=== PATIENT | male | born 1965 | race Caucasian/White ===

== ENCOUNTER 2024-01-28 15:15 | Outpatient (CLI) | payer OTHER | END 2024-01-28 15:30 | disposition home or self-care (01) | LOC: LAB.N 15:15 | PROVIDERS: ATTEND Physician Assistant Medical | DX: L03.115 Cellulitis of right lower limb (principal) | CPT/HCPCS: 87070; 87205 ==

== ENCOUNTER 2024-02-02 09:14 | Inpatient (IN) | payer OTHER ==
[~2024-02-02 09:14] MED LIST: PIPERACILLIN/TAZOBACTAM 4.5 GM in SODIUM CHLORIDE 0.9% MINIBAG 100 ML IV SCH
[2024-02-02 11:46] LABS: BASOPHILS # (AUTO) 0.1 10^3/uL (0.0-0.1); BASOPHILS % (AUTO) 0.6 %; EOSINOPHILS # (AUTO) 0.1 10^3/uL (0.0-0.7); EOSINOPHILS % (AUTO) 0.6 %; HCT - HEMATOCRIT 39.4 % (42.0-52.0); HGB - HEMOGLOBIN 13.4 g/dL (14.0-18.0); LYMPHOCYTES % (AUTO) 14.6 %; MEAN CORPUSCULAR HEMOGLOBIN 32.4 pg (27.0-31.0); MEAN CORPUSCULAR VOLUME 95.2 fL (80.0-94.0); MEAN PLATELET VOLUME 8.8 fL (7.4-11.4); MONOCYTES # (AUTO) 1.6 10^3/uL (0.0-1.0); MONOCYTES % (AUTO) 11.2 %; NEUTROPHILS # (AUTO) 10.1 10^3/uL (1.5-6.6); NEUTROPHILS % (AUTO) 72.3 %; PLT - PLATELET COUNT 199 10^3/uL (130-450); RED BLOOD COUNT 4.14 10^6/uL (4.70-6.10); RED CELL DISTRIBUTION WIDTH 11.9 % (12.0-15.0)
[2024-02-02 11:50] LABS: SLIDE REVIEW? Indicated
[2024-02-02 12:01] LABS: ALBUMIN 3.2 g/dL (3.2-5.5); ALBUMIN/GLOBULIN RATIO 0.9 (1.0-2.2); BILIRUBIN,TOTAL 0.9 mg/dL (0.2-1.0); CALCIUM 9.2 mg/dL (8.5-10.3); CREATININE 0.9 mg/dL (0.6-1.3); CRP - C-REACTIVE PROTEIN 29.1 mg/dL (<0.5); POTASSIUM 4.4 mmol/L (3.5-4.5); TOTAL PROTEIN 6.9 g/dL (6.4-8.9)
[2024-02-02 12:02] LABS: PLATELET ESTIMATE, MANUAL NORMAL (130-450,000) (NORMAL); PLATELET MORPHOLOGY NORMAL APPEARANCE (NORMAL); RBC MORPHOLOGY (MULTIPLE) NORMAL APPEARANCE (NORMAL)
--- NOTE | 2024-02-02 12:03 | XRAY Report ---
PROCEDURE: Foot 3+V RT INDICATIONS: infection TECHNIQUE: 3 views of the foot were acquired. COMPARISON: None. FINDINGS: Bones: No fractures or dislocations. No suspicious bony lesions. No plain film evidence of osteomy elitis. Soft tissues: No tibiotalar joint effusion. Achilles tendon appears normal. Mild diffuse soft tiss ue edema. No soft tissue gas or radiopaque foreign body. IMPRESSION: No plain film evidence of osteomyelitis. Comment: If continue to suspect osteomyelitis, consider nonemergent foot MRI with and without contras t. Reviewed by: Parish Marsh MD on 02/02/2024 12:02 PM PDT Approved by: Parish Marsh MD on 02/02/2024 12:02 PM PDT Station ID: [id number]
[2024-02-02] MEDS: VANCOMYCIN INJ 2 GM, VANCOMYCIN INJ 500 MG in SODIUM CHLORIDE 0.9% 500 ML IV STA (12:43)
[2024-02-02] MEDS: HYDROmorphone 1 MG/ML CARPUJECT IVP STA (14:32)
[2024-02-02] MEDS: NICOTINE 21 MG PATCH TOP STA ×2 (15:57→18:38)
--- NOTE | 2024-02-02 16:12 | ED Physician Documentation ---
History of Present Illness - Stated complaint Stated Complaint: RT FOOT PX - Chief complaint Chief Complaint: Ext Problem - History obtained from History obtained from: Patient - Additonal information Additional information: The patient comes to the emergency department from the walk-in clinic for chief complaint of diabetic right foot infection and possible osteomyelitis. He has been having issues with his foot for the last few months since having the surgery. He developed a bunion following this and then the area began to get infected. He states he has not been having any fevers but was concerned about the increasing redness and sore on the side of his foot, so he was seen in the walk-in clinic about a week and a half ago. He was started on Rocephin and Keflex and discharged with outpatient Keflex, but it seemed like the infection was getting worse. The patient was seen again in theNeck and was started on Bactrim. This was 2 days ago. The patient still feels like the foot is getting worse and the redness is spreading. He states he has neuropathy but is having some pain that is breaking through. He has now noticed development of a hemorrhagic bulla on the dorsum of his foot. His toes are also red and swollen now. He is not currently taking any medication for his diabetes. He is a smoker. PD PAST MEDICAL HISTORY - Past Medical History Past Medical History: Yes Cardiovascular: Hypertension Respiratory: None Neuro: Peripheral neuropathy Endocrine/Autoimmune: Type 2 diabetes GI: None : Benign prostate hypertrophy HEENT: None Psych: None Musculoskeletal: Osteoarthritis, Chronic back pain Derm: Eczema - Past Surgical History Past Surgical History: Yes Ortho: Knee replacement, Other HEENT: Cataracts - Present Medications Home Medications: Ambulatory Orders Medication Instructions Recorded Confirmed Diclofenac Submicronized 75 mg PO DAILY 02/02/24 02/02/24 [Diclofenac] Gabapentin [Gabapentin ER] 300 mg PO QID 02/02/24 02/02/24 - Allergies Allergies/Adverse Reactions: Allergies Allergy/AdvReac Type Severity Reaction Status Date / Time No Known Drug Allergies Allergy Verified 02/02/24 09:38 - Social History Does the pt smoke?: Yes Smoking Status: Current every day smoker Does the pt drink ETOH?: Yes ETOH Use: Liquor Does the pt have substance abuse?: No - Immunizations Immunizations are current?: No - POLST Patient has POLST: No PD ED PE NORMAL - Vitals Vital signs reviewed: Yes - General General: Alert and oriented X 3, No acute distress, Well developed/nourished - HEENT HEENT: Atraumatic, EOMI, Moist mucous membranes - Neck Neck: Supple, no meningeal sign - Cardiac Cardiac: RRR, No murmur - Respiratory Respiratory: No respiratory distress, Clear bilaterally - Derm Derm: Warm and dry, Other (Deeply erythematous right foot dorsum including toes and spreading over the lateral aspect of the foot. Does not extend proximally past the ankle. Some desquamation centrally on the foot dorsum with a 2 x 1.5 hemorrhagic bulla. No drainage.) - Extremities Extremities: No deformity - Neuro Neuro: Alert and oriented X 3 - Psych Psych: Normal mood, Normal affect Results - Vitals Vitals: Vital Signs - 24 hr 02/02/24 02/02/24 02/02/24 09:31 13:58 15:00 Temperature 36.4 C L 37.7 C Heart Rate 113 H 95 103 H Respiratory 20 16 20 Rate Blood Pressure 154/80 H 122/77 147/82 H O2 Saturation 99 98 94 Oxygen O2 Source Room air - Labs Labs: Laboratory Tests 02/02/24 02/02/24 02/02/24 11:41 11:41 11:41 WBC 14.0 H RBC 4.14 L Hgb 13.4 L Hct 39.4 L MCV 95.2 H MCH 32.4 H MCHC 34.0 RDW 11.9 L Plt Count 199 MPV 8.8 Neut # (Auto) 10.1 H Lymph # (Auto) 2.0 [place] # (Auto) 1.6 H Eos # (Auto) 0.1 Baso # (Auto) 0.1 Absolute Nucleated RBC 0.00 Nucleated RBC % 0.0 Manual Slide Review Indicated WBC Morphology Platelet Estimate NORMAL (130-450,000) Platelet Morphology NORMAL APPEARANCE RBC Morph Micro Appear NORMAL APPEARANCE ESR 37 H Sodium 133 L Potassium 4.4 Chloride 93 L Carbon Dioxide 25 Anion Gap 15.0 H BUN 13 Creatinine 0.9 Estimated GFR (MDRD) 86 L Glucose 363 H Calcium 9.2 Total Bilirubin 0.9 AST 19 ALT 19 Alkaline Phosphatase 70 C-Reactive Protein 29.1 H Total Protein 6.9 Albumin 3.2 Globulin 3.7 Albumin/Globulin Ratio 0.9 L Lipase 20 PD Medical Decision Making - ED course Complexity details: reviewed old records, reviewed results, re-evaluated patient, considered differential, d/w patient, d/w family ED course: Laboratory studies were obtained which demonstrated a leukocytosis of 14, ESR of 37, C-reactive protein of 29, glucose of 363. X-ray was performed and showed no soft tissue emphysema. MRI was ordered. The patient received IV vancomycin and Unasyn in the emergency department. He was given 12 units of insulin for his elevated blood sugar. The patient is awaiting MRI. Currently we do not have any inpatient beds that this patient would likely at this point in time benefit from admission. Patient signed out at change of shift, pending MRI and bed availability for admission. He has been given a nicotine patch as he is becoming somewhat agitated at staying in the ED and wanted to smoke. Departure - Departure Clinical Impression: Diabetic infection of right foot Uncontrolled diabetes mellitus Qualifiers: Glycemic state: with hyperglycemia
[2024-02-02] MEDS: AMPICILLIN/SULBACTAM 3 GM in SODIUM CHLORIDE 0.9% MINIBAG 100 ML IV STA (16:50)
[2024-02-02] MEDS: INSULIN REGULAR, HUMAN 300 UNIT/3 ML PEN IVP STA (16:56)
[2024-02-02] MEDS ORDERED: GADOTERATE MEGLUMINE 10 MMOL/20 ML VIAL ONE (17:24)
[2024-02-02] MEDS: GADOTERATE MEGLUMINE 10 MMOL/20 ML VIAL IVP ONE (17:32)
--- NOTE | 2024-02-02 17:38 | HISTORY & PHYSICAL EXAMINATION ---
Chief Complaint - Chief Complaint Chief Complaint: My toe is bad History of Present Illness - Admitted From Admitted From:: [facility] Emergency Department - History Obtained From Records Reviewed: EMR History obtained from: Patient and - History of Present Illness HPI Comment/Other: Sukhdev Howell is a 58-year-old gentleman with a history of type 2 diabetes, hypertension, peripheral neuropathy, BPH, chronic back pain, eczema and alcohol abuse who presents with a right foot ulcer. He developed a bunion on his right foot (right lateral aspect) and about four months ago it started to open up. Over the past several months, the wound has been getting larger and continued to drain. The ulcer has been increasingly red and swollen starting about 10 days ago, thus he went to the walk-in clinic on 02/27 and was prescribed Keflex. Despite taking the antibiotic the symptoms seem to progress and he went back to the walk-in clinic, where he was prescribed Bactrim 2 days ago. Despite taking this the redness in the area has been progressing and the swelling is increasing as well. His entire right lower foot is swollen/red. Despite having peripheral neuropathy he is having more pain in the area but he denies having any fevers, chills or night sweats. He denies any pain in his calf or swelling in his more proximal right leg. He denies any chest pain, shortness of breath, cough, nausea, vomiting or diarrhea. Yesterday he noticed a blister that started to appear on the dorsal aspect of his foot and due to progression of his symptoms he came to the emergency department for further evaluation. He was afebrile though he was tachycardic and mildly hypertensive. His WBC was 14.0 and his BMP was fairly unremarkable aside from a glucose of 360. His ESR was 37 and CRP was 29. An x-ray of his foot was negative for osteomyelitis or other pathology but given concerns for possible underlying osteomyelitis an MRI of his right foot was ordered and pending at the time of admission. He was given IV vancomycin and Unasyn as well as 12 units of IV regular insulin for his hyperglycemia then admitted for further care. Of note the patient does have alcohol abuse and drinks approximately a fifth of whiskey every day. He denies a history of alcohol withdrawal, saying he has gone over 4 days without tremors, though his indicated she did not think he has ever gone that long without alcohol previously. History - Past Medical History Cardiovascular: reports: Hypertension Respiratory: reports: None Neuro: reports: Peripheral neuropathy Endocrine/Autoimmune: reports: Type 2 diabetes GI: reports: None : reports: Benign prostate hypertrophy HEENT: reports: None Psych: reports: None Musculoskeletal: reports: Osteoarthritis, Chronic back pain Derm: reports: Eczema - Past Surgical History Ortho: reports: Knee replacement, Other HEENT: reports: Cataracts - Family & Social History Family History: Other family: Diabetes, Type 2 Living arrangement: At home Living Situation: With spouse/s.o. - Substance History Use: Uses substance without health or social issues: Tobacco (Smokes 1 ppd), Alcohol (Drinks a fifth of Whiskey per day) - POLST Patient has POLST: No Meds/Allgy - Home Medications Home Medications: Ambulatory Orders Medication Instructions Recorded Confirmed Diclofenac Submicronized 75 mg PO DAILY 02/02/24 02/02/24 [Diclofenac] Gabapentin [Gabapentin ER] 300 mg PO QID 02/02/24 02/02/24 - Allergies Allergies/Adverse Reactions: Allergies Allergy/AdvReac Type Severity Reaction Status Date / Time No Known Drug Allergies Allergy Verified 02/02/24 09:38 Review of Systems - Constitutional Constitutional: denies: Fever, Chills, Night sweats - Eyes Eyes: denies: Blurred vision - Ears, Nose & Throat Ears, Nose & Throat: denies: Tinnitus, Vertigo - Cardiovascular Cariovascular: denies: Chest pain, Orthopnea - Respiratory Respiratory: denies: Cough, Wheezing, Orthopnea, SOB at rest, SOB with exertion - Gastrointestinal Gastrointestinal: denies: Abdominal pain, Diarrhea, Black stools, Nausea, Vo miting - Genitourinary Genitourinary: reports: Frequency. denies: Dysuria - Musculoskeletal Musculoskeletal: reports: Joint pain - Integumentary Integumentary: reports: Lesions - Neurological Neurological: reports: General weakness. denies: Focal weakness - Psychiatric Psychiatric: denies: Depression - Endocrine Endocrine: reports: Polyuria - All Other Systems All Other Systems: reports: Reviewed and negative Exam - Vital Signs Reviewed Vital Signs: Yes Vital Signs: Vital Signs x48h Temp Pulse Resp BP Pulse Ox 02/02/24 15:00 37.7 C 103 H 20 147/82 H 94 02/02/24 13:58 95 16 122/77 98 02/02/24 09:31 36.4 C L 113 H 20 154/80 H 99 - Physical Exam General Appearance: positive: No acute distress, Alert Eyes Bilateral: positive: Normal inspection, PERRL, EOMI ENT: positive: ENT inspection nml, Pharynx nml, No signs of dehydration Neck: positive: Nml inspection, Thyroid nml, No JVD, Trachea midline Respiratory: positive: No respiratory distress, Breath sounds nml. negative: Wheezes, Rales, Rhonchi Cardiovascular: positive: Regular rate & rhythm, No murmur, No gallop Peripheral Pulses: positive: Other (DP pulses are difficult to palpate bilaterally. Left foot has cap refill less than 1 second. Right foot has cap refill of approximately 2 to 3 seconds.) Abdomen: positive: Non-tender, No organomegaly, Nml bowel sounds, No distention Back: positive: Nml inspection Skin: positive: Color nml, Warm, Dry Extremities: positive: Other (No peripheral edema noted. Right foot has diffuse edema and erythema spreading from the right lateral ulceration area up to his ankle and extending a few centimeters proximal to the ankle. There is a hemorrhagic blister at the fourth metatarsal joint region. The right lateral foot has the large u) Neurologic/Psychiatric: positive: Oriented x3, CN's nml (2-12), Motor nml, Sensation nml Sepsis Event Note (H) - Evaluation Current Stage of Sepsis: Sepsis Possible source of Sepsis: positive: Skin/soft tissue Conclusion/Plan - Problem List (1) Diabetic infection of right foot Conclusion/Plan: He reports having a right foot wound ever since a bunion developed on the right lateral aspect of his foot approximately four months ago. It has been progressively worsening since then and in the past month it has become more of an open ulcer. Over the past week it has been erythematous and more painful, and he was prescribed Keflex on 02/27. The infection seemed to progress despite this and he was prescribed Bactrim 2 days ago and his symptoms continued to worsen. Overall his foot appears consistent with a diabetic ulcer and foot infection with the possibility of underlying osteomyelitis. -MRI of the right foot is pending to evaluate for osteomyelitis. -Continue IV vancomycin and switch to Zosyn to cover Pseudomonas. -Check blood cultures. -Depending on MRI findings, we will likely discuss debridement versus more aggressive management with orthopedic surgery tomorrow. -Obtain arterial duplex to rule out vascular disease. (2) Sepsis Conclusion/Plan: He meets criteria for sepsis due to elevated white blood cell count along with tachycardia in the setting of a right diabetic foot infection. He does not meet criteria for severe sepsis. -Check lactic acid. If elevated will give a 30 cc/kg bolus of IV fluids. -Obtain blood cultures. -Continue IV antibiotics as noted above. -Placed on IV fluids overnight. Qualifiers: Sepsis acute organ dysfunction status: without acute organ dysfunction (3) Uncontrolled diabetes mellitus Conclusion/Plan: He has been prescribed metformin previously but had diarrhea with this. He was then prescribed Glimepiride, but he does not take this because he did not feel that this improved his glucose at all. He currently is not taking any medications for diabetes at this time.. -A1c is pending. -Placed on Lantus with sliding scale insulin for the time being. Qualifiers: Diabetes mellitus type: type 2 Glycemic state: with hyperglycemia Qualified Code(s): E11.65 - Type 2 diabetes mellitus with hyperglycemia (4) Alcohol use disorder Conclusion/Plan: He drinks heavily at home and usually has a fifth of whiskey per day. -Will give IV thiamine now and schedule multivitamin with minerals and or thiamine tomorrow. -Placed on Librium. No signs of alcohol withdrawal yet. Would order CIWA protocol if symptoms arise. (5) Hypertension Conclusion/Plan: He is not taking any medications for this currently. -Will monitor for now off antihypertensives. -Can have as needed hydralazine if the blood pressure increases significantly. (6) Peripheral neuropathy Conclusion/Plan: He has diabetic peripheral neuropathy in both of his lower extremities. -Resume home gabapentin. (7) BPH (benign prostatic hyperplasia) Conclusion/Plan: He does not take any medication for this at this time. -Monitor for signs/symptoms of urinary retention. (8) Tobacco use disorder Conclusion/Plan: Counseled on smoking cessation. -Nicotine patch ordered. - Lab Results Fish Bones: 02/02/24 11:41 02/02/24 11:41 - Diagnostic Imaging Results Diagnostic Imaging Results Comments: Foot X-ray: No plain film evidence of osteomyelitis. Core Measures - Anticipated LOS I expect patient to be DC'd or transferred within 96 hours.: Yes - DVT/VTE - Prophylaxis VTE/DVT Device ordered at admit?: No VTE/DVT Prophylaxis med ordered at admit?: Yes
[2024-02-02] MEDS ORDERED: ONDANSETRON ODT 4 MG TABLET TL PRN (18:09)
[2024-02-02] MEDS ORDERED: ONDANSETRON 4 MG/2 ML VIAL IVP PRN (18:09)
--- NOTE | 2024-02-02 18:44 | PHARMACY PROGRESS NOTE ---
- Therapy Status Therapy status: Awaiting steady state Basis for treatment: Empirical Treatment indication: DIABETIC INFECTION OF RIGHT FOOT/SEPSIS Trough goal: AUC/SISI 400-600 Concurrent antibiotics: ZOSYN - SERENA Risk Risk level for Acute Kidney Injury: High Acute Kidney Injury risk factors: Piperacillin/Tozobactam, Wt >100kg or BMI >40, Diabetes, Sepsis - Monitoring and Recommendation Clinical response to treatment: I&O Previous 24 hours 01/31/24 02/01/24 02/02/24 23:59 23:59 23:59 Intake Total 600 Balance 600 Lab Results 02/02/24 02/02/24 11:41 11:41 ESR 37 H BUN 13 Creatinine 0.9 Estimated GFR (MDRD) 86 L Monitoring plan: Daily serum creatinine Areas for additional monitoring: IV to PO when appropriate, Therapy de- escalation based on culture results Pharmacy recommendation: Continue current regime (Patient received 2.5 g loading dose in ED this afternoon. Initiate maintenance dose of 1 g IV q12h for estimated AUC of ~444)
--- NOTE | 2024-02-02 19:06 | MRI Report ---
PROCEDURE: Foot RT W/WO INDICATIONS: infection, concern for osteomyelitis CONTRAST: 20ml Clariscan TECHNIQUE: Noncontrast sagittal T1 spin echo and T2 fast spin echo with fat saturation, long-axis T1 spin echo a nd T2 fast spin echo with fat saturation; short-axis T1 spin echo, proton density fast spin echo, and T2 fast spin echo with fat saturation through the forefoot. Post-contrast short axis, long axis, an d sagittal T1 spin echo with fat saturation through the forefoot. COMPARISON: Right foot x-ray 02/02/2024 FINDINGS: Image quality: Excellent. Enhancement: Lying dorsal to the 4th metatarsophalangeal articulation, there is a lobulated 2.4 x 3.0 x 5.2 cm fluid collection that envelops the extensor digitorum longus tendon (8/20; 11/7) with inter nal debris and without significant internal enhancement. Bone: There is no T1 marrow replacement in the visualized bones. There is no pathologic fracture or d islocation. Joint: There is scattered osteoarthrosis involving the intercuneiform and cuneiform-metatarsal articu lations (6/6-20; 7/36). There is mild hallux MTP and hallux intersesamoid osteoarthritis. There is no significant joint effusion. Muscle: There is severe denervation atrophy of the plantar foot musculature, with superimposed edema and enhancement. Tendon: The visualized flexor and extensor tendons are otherwise within normal limits. IMPRESSION: 1.No MR evidence of osteomyelitis at this time. 2.Scattered osteoarthrosis at the intertarsal and cuneiform-metatarsal articulations, which can be se en in the setting of neuropathic arthropathy. 3.Lobulated 5.2 cm fluid collection along the 4th metatarsophalangeal articulation. While this collec tion may represent an adventitial bursa, consider the possibility of an underlying fungal or atypical bacterial (Nocardia, Actinomyces) infection. Reviewed by: Max Dutta MD on 02/02/2024 7:05 PM PDT Approved by: Max Dutta MD on 02/02/2024 7:05 PM PDT Station ID: [id number]
[2024-02-02] MEDS: SODIUM CHLORIDE 0.9% 1,000 ML IV SCH (19:44)
[2024-02-02] MEDS: THIAMINE INJ 100 MG in SODIUM CHLORIDE 0.9% 50 ML IV STA (19:45)
[2024-02-02 21:35] LABS: ESTIMATED AVERAGE GLUCOSE 269 mg/dL (70-100)
[2024-02-02] MEDS: HEPARIN 5,000 UNIT/ML VIAL SUBQ SCH (22:26)
[2024-02-02] MEDS: GABAPENTIN 300 MG CAPSULE PO SCH (22:26)
[2024-02-02] MEDS: oxyCODONE 5 MG TABLET PO PRN (22:26)
[2024-02-02] MEDS: INSULIN GLARGINE-YFGN 300 UNIT/3 ML PEN SUBQ SCH (22:27)
[2024-02-02] MEDS: INSULIN LISPRO 300 UNIT/3 ML PEN SUBQ SCH (22:28)
[2024-02-02] MEDS: PIPERACILLIN/TAZOBACTAM 4.5 GM in SODIUM CHLORIDE 0.9% MINIBAG 100 ML IV ONE (22:29)
--- NOTE | 2024-02-02 23:46 | ED Physician Documentation ---
ED Addendum - Addendum Addendum: Patient was signed out to me by Dr. Mckeon awaiting MRI and admission. A bed became available around the time of the MRI. Therefore the patient was admitted for IV antibiotics given that he has failed 2 different outpatient antibiotics. Also has a significant white blood cell count and very poorly controlled diabetes. states that he has not taken any of his medications that he is supposed to take for diabetes. Discussed the case with the hospitalist who accepts. This document was made in part using voice recognition software. While efforts are made to proofread this document, sound alike and grammatical errors may occur.
[2024-02-03] MEDS ORDERED: PIPERACILLIN/TAZOBACTAM 4.5 GM in SODIUM CHLORIDE 0.9% MINIBAG 100 ML IV SCH
[2024-02-03] MEDS: VANCOMYCIN INJ 1 GM in SODIUM CHLORIDE 0.9% 250 ML IV SCH (00:22)
[2024-02-03] MEDS: SODIUM CHLORIDE FLUSH 0.9% 10 ML SYRINGE IVP SCH (00:27)
[2024-02-03] MEDS: PIPERACILLIN/TAZOBACTAM 4.5 GM in SODIUM CHLORIDE 0.9% MINIBAG 100 ML IV SCH (02:28)
--- NOTE | 2024-02-03 07:28 | PROVIDER PROGRESS NOTE ---
Subjective - Prog Note Date Prog Note Date: 02/03/24 Prog Note Time: 07:28 - Subjective Pt reports feeling: Improved Subjective: No acute events overnight. Patient indicates he still is having some pain in his right foot but overall that is stable. He denies having any fevers, chills, night sweats and he remained afebrile thus far during this hospitalization. He denies having any chest pain, shortness of breath, cough, nausea, vomiting. His foot MRI was negative for osteomyelitis though did show a lobulated fluid collection close to his fourth metatarsal. Objective - Vital Signs/Intake & Output Reviewed Vital Signs: Yes Vital Signs: Vital Signs x48h Temp Pulse Resp BP Pulse Ox 02/03/24 00:00 36.4 C L 110 H 18 148/86 H 96 Intake & Output: Intake & Output 01/31/24 02/01/24 02/02/24 02/03/24 23:59 23:59 23:59 23:59 Intake Total 1251 1313.333 Balance 1251 1313.333 - Objective General Appearance: positive: Alert Eyes Bilateral: positive: Normal inspection, PERRL, EOMI ENT: positive: ENT inspection nml, Pharynx nml, No signs of dehydration Neck: positive: Nml inspection, Thyroid nml, No JVD, Trachea midline Respiratory: positive: No respiratory distress, Breath sounds nml. negative: Wheezes, Rales, Rhonchi Cardiovascular: positive: Regular rate & rhythm, No murmur, No gallop Abdomen: positive: Non-tender, No organomegaly, Nml bowel sounds, No distention Skin: positive: Warm, Dry Extremities: positive: Other (No peripheral edema noted. Right foot has diffuse edema and erythema spreading from the right lateral ulceration area up to his ankle and extending a few centimeters proximal to the ankle. There is a hemo rrhagic blister at the fourth metatarsal joint region. Large ulcer on lateral right foot.) Neurologic/Psychiatric: positive: Oriented x3, CN's nml (2-12), Motor nml, Sensation nml - Lab Results Fish Bones: 02/02/24 11:41 02/02/24 11:41 Other Labs: Lab Results x24hrs 02/02/24 02/02/24 02/02/24 Range/Units 23:18 20:13 19:42 WBC (4.8-10.8) x10^3/uL RBC (4.70-6.10) 10^6/uL Hgb (14.0-18.0) g/dL Hct (42.0-52.0) % MCV (80.0-94.0) fL MCH (27.0-31.0) pg MCHC (32.0-36.0) g/dL RDW (12.0-15.0) % Plt Count (130-450) 10^3/uL MPV (7.4-11.4) fL Neut # (Auto) (1.5-6.6) 10^3/uL Lymph # (Auto) (1.5-3.5) 10^3/uL Jones # (Auto) (0.0-1.0) 10^3/uL Eos # (Auto) (0.0-0.7) 10^3/uL Baso # (Auto) (0.0-0.1) 10^3/uL Absolute Nucleated RBC x10^3/uL Nucleated RBC % /100WBC Manual Slide Review WBC Morphology (NORMAL) Platelet Estimate (NORMAL) Platelet Morphology (NORMAL) RBC Morph Micro Appear (NORMAL) ESR (0-20) mm/Hr Sodium (135-145) mmol/L Potassium (3.5-4.5) mmol/L Chloride (101-111) mmol/L Carbon Dioxide (21-32) mmol/L Anion Gap (6-13) BUN (6-20) mg/dL Creatinine (0.6-1.3) mg/dL Estimated GFR (MDRD) (>89) Glucose (74-104) mg/dL POC Whole Bld Glucose 361 H 431 H (70 - 100) mg/dL Estimat Average Glucose (70-100) mg/dL Hemoglobin A1c % (4.27-6.07) % Lactic Acid 1.5 (0.5-2.2) mmol/L Calcium (8.5-10.3) mg/dL Total Bilirubin (0.2-1.0) mg/dL AST (10-42) IU/L ALT (10-60) IU/L Alkaline Phosphatase (42-121) IU/L C-Reactive Protein (<0.5) mg/dL Total Protein (6.4-8.9) g/dL Albumin (3.2-5.5) g/dL Globulin (2.1-4.2) g/dL Albumin/Globulin Ratio (1.0-2.2) Lipase (11-82) U/L 02/02/24 02/02/24 02/02/24 Range/Units 11:41 11:41 11:41 WBC (4.8-10.8) x10^3/uL RBC (4.70-6.10) 10^6/uL Hgb (14.0-18.0) g/dL Hct (42.0-52.0) % MCV (80.0-94.0) fL MCH (27.0-31.0) pg MCHC (32.0-36.0) g/dL RDW (12.0-15.0) % Plt Count (130-450) 10^3/uL MPV (7.4-11.4) fL Neut # (Auto) (1.5-6.6) 10^3/uL Lymph # (Auto) (1.5-3.5) 10^3/uL Jones # (Auto) (0.0-1.0) 10^3/uL Eos # (Auto) (0.0-0.7) 10^3/uL Baso # (Auto) (0.0-0.1) 10^3/uL Absolute Nucleated RBC x10^3/uL Nucleated RBC % /100WBC Manual Slide Review WBC Morphology (NORMAL) Platelet Estimate (NORMAL) Platelet Morphology (NORMAL) RBC Morph Micro Appear (NORMAL) ESR 37 H (0-20) mm/Hr Sodium 133 L (135-145) mmol/L Potassium 4.4 (3.5-4.5) mmol/L Chloride 93 L (101-111) mmol/L Carbon Dioxide 25 (21-32) mmol/L Anion Gap 15.0 H (6-13) BUN 13 (6-20) mg/dL Creatinine 0.9 (0.6-1.3) mg/dL Estimated GFR (MDRD) 86 L (>89) Glucose 363 H (74-104) mg/dL POC Whole Bld Glucose (70 - 100) mg/dL Estimat Average Glucose 269 H (70-100) mg/dL Hemoglobin A1c % 11.0 H (4.27-6.07) % Lactic Acid (0.5-2.2) mmol/L Calcium 9.2 (8.5-10.3) mg/dL Total Bilirubin 0.9 (0.2-1.0) mg/dL AST 19 (10-42) IU/L ALT 19 (10-60) IU/L Alkaline Phosphatase 70 (42-121) IU/L C-Reactive Protein 29.1 H (<0.5) mg/dL Total Protein 6.9 (6.4-8.9) g/dL Albumin 3.2 (3.2-5.5) g/dL Globulin 3.7 (2.1-4.2) g/dL Albumin/Globulin Ratio 0.9 L (1.0-2.2) Lipase 20 (11-82) U/L 02/02/24 Range/Units 11:41 WBC 14.0 H (4.8-10.8) x10^3/uL RBC 4.14 L (4.70-6.10) 10^6/uL Hgb 13.4 L (14.0-18.0) g/dL Hct 39.4 L (42.0-52.0) % MCV 95.2 H (80.0-94.0) fL MCH 32.4 H (27.0-31.0) pg MCHC 34.0 (32.0-36.0) g/dL RDW 11.9 L (12.0-15.0) % Plt Count 199 (130-450) 10^3/uL MPV 8.8 (7.4-11.4) fL Neut # (Auto) 10.1 H (1.5-6.6) 10^3/uL Lymph # (Auto) 2.0 (1.5-3.5) 10^3/uL Jones # (Auto) 1.6 H (0.0-1.0) 10^3/uL Eos # (Auto) 0.1 (0.0-0.7) 10^3/uL Baso # (Auto) 0.1 (0.0-0.1) 10^3/uL Absolute Nucleated RBC 0.00 x10^3/uL Nucleated RBC % 0.0 /100WBC Manual Slide Review Indicated WBC Morphology (NORMAL) Platelet Estimate NORMAL (130-450,000) (NORMAL) Platelet Morphology NORMAL APPEARANCE (NORMAL) RBC Morph Micro Appear NORMAL APPEARANCE (NORMAL) ESR (0-20) mm/Hr Sodium (135-145) mmol/L Potassium (3.5-4.5) mmol/L Chloride (101-111) mmol/L Carbon Dioxide (21-32) mmol/L Anion Gap (6-13) BUN (6-20) mg/dL Creatinine (0.6-1.3) mg/dL Estimated GFR (MDRD) (>89) Glucose (74-104) mg/dL POC Whole Bld Glucose (70 - 100) mg/dL Estimat Average Glucose (70-100) mg/dL Hemoglobin A1c % (4.27-6.07) % Lactic Acid (0.5-2.2) mmol/L Calcium (8.5-10.3) mg/dL Total Bilirubin (0.2-1.0) mg/dL AST (10-42) IU/L ALT (10-60) IU/L Alkaline Phosphatase (42-121) IU/L C-Reactive Protein (<0.5) mg/dL Total Protein (6.4-8.9) g/dL Albumin (3.2-5.5) g/dL Globulin (2.1-4.2) g/dL Albumin/Globulin Ratio (1.0-2.2) Lipase (11-82) U/L - Diagnostic Imaging Diagnostic Imaging Comments: Foot X-ray: No plain film evidence of osteomyelitis. Right Foot MRI: 1. No MRI evidence of osteomyelitis at this time. 2. Scattered osteoarthrosis at the intertarsal and cuneiform metatarsal articulations, which can be seen in the setting of neuropathic arthropathy. 3. Lobulated 5.2 cm fluid collection along the fourth metatarsophalangeal articulation. While this collection may represent an adventitial bursa, conside r the possibility of an underlying fungal or atypical bacterial (Nocardia, Actinomyces) infection. Sepsis Event Note (H) - Evaluation Current Stage of Sepsis: Sepsis Possible source of Sepsis: positive: Skin/soft tissue Assessment/Plan - Problem List (1) Diabetic infection of right foot Impression: He reports having a right foot wound ever since a bunion developed on the right lateral aspect of his foot approximately four months ago. It has been progressively worsening since then and in the past month it has become more of an open ulcer. Over the past week it has been erythematous and more painful, and he was prescribed Keflex on 02/27. The infection seemed to progress despite this and he was prescribed Bactrim 2 days ago and his symptoms continued to worsen. -MRI of the right foot is negative for osteomyelitis, but does show a fluid collection that may or may not be infected. -Continue IV vancomycin and Zosyn. -Blood cultures pending. -Orthopedic Surgery (Dr. John Saxena) consulted to evaluate for I&D vs debri eder vs other therapy. -Arterial duplex of right leg pending; preliminary read indicates occluded SFA with reconstitution distally via collaterals. (2) Sepsis Impression: He met criteria for sepsis due to elevated white blood cell count along with tachycardia in the setting of a right diabetic foot infection. He does not meet criteria for severe sepsis. -Lactic acid is normal. Blood cultures pending. -Continue IV antibiotics as noted above. -Sepsis is improving. Discontinue IV fluids. Qualifiers: Sepsis acute organ dysfunction status: without acute organ dysfunction (3) Uncontrolled diabetes mellitus Impression: He has been prescribed metformin previously but had diarrhea with this. He was then prescribed Glimepiride, but he does not take this because he did not feel that this improved his glucose at all. He currently is not taking any medications for diabetes at this time. -A1c is 11%. -Change Lantus to 18 units BID and add pre-meal insulin, in addition to SSI. Qualifiers: Diabetes mellitus type: type 2 Glycemic state: with hyperglycemia Qualified Code(s): E11.65 - Type 2 diabetes mellitus with hyperglycemia (4) Alcohol use disorder Impression: He drinks heavily at home and usually has a fifth of whiskey per day. -Received IV thiamine in the ED. Continue multivitamin with and PO thiamine. -Placed on Librium 25 mg TID. No signs of alcohol withdrawal yet. Would order CIWA protocol if symptoms arise. (5) Hypertension Impression: He is not taking any medications for this currently. -Will start 10 mg Lisinopril given elevated BP. -Can have as needed hydralazine if the blood pressure increases significantly. (6) Peripheral neuropathy Impression: He has diabetic peripheral neuropathy in both of his lower extremities. -Continue home gabapentin. (7) BPH (benign prostatic hyperplasia) Impression: He does not take any medication for this at this time. -Monitor for signs/symptoms of urinary retention. (8) Tobacco use disorder Impression: Counseled on smoking cessation. -Nicotine patch ordered.
[2024-02-03] MEDS: INSULIN GLARGINE-YFGN 300 UNIT/3 ML PEN SUBQ SCH ×2 (08:53→21:19)
[2024-02-03] MEDS ORDERED: MELATONIN 3 MG TABLET PO PRN (08:56)
[2024-02-03] MEDS: INSULIN LISPRO 300 UNIT/3 ML PEN SUBQ SCH (08:56)
[2024-02-03] MEDS: DICLOFENAC SODIUM DR 75 MG TABLET PO SCH (08:56)
[2024-02-03] MEDS: THIAMINE 100 MG TABLET PO SCH (08:56)
[2024-02-03] MEDS: MULTIVITAMIN TABLET PO SCH (08:56)
[2024-02-03] MEDS: chlordiazePOXIDE 25 MG CAPSULE PO SCH (08:58)
[2024-02-03 09:01] LABS: BASOPHILS # (AUTO) 0.1 10^3/uL (0.0-0.1); BASOPHILS % (AUTO) 0.8 %; EOSINOPHILS # (AUTO) 0.3 10^3/uL (0.0-0.7); EOSINOPHILS % (AUTO) 2.8 %; HCT - HEMATOCRIT 35.4 % (42.0-52.0); HGB - HEMOGLOBIN 12.1 g/dL (14.0-18.0); LYMPHOCYTES # (AUTO) 1.8 10^3/uL (1.5-3.5); LYMPHOCYTES % (AUTO) 16.9 %; MEAN CORPUSCULAR HEMOGLOBIN 32.3 pg (27.0-31.0); MEAN CORPUSCULAR HGB CONC 34.2 g/dL (32.0-36.0); MEAN CORPUSCULAR VOLUME 94.4 fL (80.0-94.0); MEAN PLATELET VOLUME 8.9 fL (7.4-11.4); MONOCYTES % (AUTO) 9.5 %; NEUTROPHILS # (AUTO) 7.3 10^3/uL (1.5-6.6); NEUTROPHILS % (AUTO) 69.3 %; PLT - PLATELET COUNT 175 10^3/uL (130-450); RED BLOOD COUNT 3.75 10^6/uL (4.70-6.10); RED CELL DISTRIBUTION WIDTH 11.9 % (12.0-15.0); WHITE BLOOD COUNT 10.6 x10^3/uL (4.8-10.8)
[2024-02-03 09:06] LABS: INR 1.6 (0.8-1.2); PT - PROTHROMBIN TIME 17.2 secs (9.9-12.6)
[2024-02-03 09:17] LABS: CREATININE 0.7 mg/dL (0.6-1.3); POTASSIUM 3.1 mmol/L (3.5-4.5)
--- NOTE | 2024-02-03 10:27 | PHARMACY PROGRESS NOTE ---
- Best Possible Medication History Admit Date and Time: 02/02/24 1809 Processed by: Pharmacy Medications reviewed in ED?: Yes Medication History completed: Yes Patient Interview: Completed Secondary Source(s): Pharmacy records, Insurance records As the person ultimately responsible for medication therapy, providers are able to order a medication from an existing home medication list in [facility] via the "Reconcile Routine" prior to Confirmation of that medication by field support rep. Such practice is discouraged except when the physician, in their clinical judgment, deems that a medical need exists for a medication without regard to previous use.
[2024-02-03] MEDS: lisinopriL 20 MG TABLET PO SCH (11:19)
[2024-02-03] MEDS: oxyCODONE 5 MG TABLET PO PRN (11:19)
[2024-02-03] MEDS: POTASSIUM CHLORIDE 20 MEQ TABLET PO ONE (12:19)
[2024-02-03] MEDS: INSULIN REGULAR, HUMAN 300 UNIT/3 ML PEN SUBQ SCH ×2 (12:29→23:57)
--- NOTE | 2024-02-03 21:37 | CONSULTATION NOTE ---
Referring Provider Consult Date: 02/03/24 Chief Complaint - Chief Complaint Chief Complaint: Right Foot Ulcer and Possible Abscess History of Present Illness - Admitted From Admitted From:: ED - History of Present Illness HPI Comment/Other: 58yo M with history of type 2 diabetes, hypertension, peripheral neuropathy, BPH, chronic back pain, eczema and alcohol abuse presents for a right foot ulcer. He reports that he has had this foot ulcer for approximately 4 months. The ulcer initially started on the lateral aspect of the foot with mild erythema however it became increasingly red and swollen and started to drain. He initially presented to the walk-in clinic and was prescribed Keflex on January 27. Despite being compliant with his antibiotic use his redness and ulcer continued to progress. He returned to the walk-in clinic where they prescribed him Bactrim on January 30. His erythema and edema continued to progress and he presented to the emergency department for further evaluation. He was described to be tachycardic and hypertensive however afebrile. His white blood cell count was initially 14.0 and his glucose was 360. ESR was 37 and CRP was 29. He underwent radiographs and an MRI which demonstrated a fluid collection along the fourth ray. He was started on IV vancomycin and Unasyn. He was also started on insulin to better control his hyperglycemia. He was admitted on February 01. Past medical history: Hypertension, peripheral neuropathy, type 2 diabetes, benign prostate hypertrophy, chronic back pain and eczema. Past surgical history: Right total knee arthroplasty. Cataracts. Home medications: Gabapentin and diclofenac Allergies: No known drug allergies Social history: Lives at home with his . Tobacco history: Smokes 1 pack/day. Alcohol history: Drinks approximately 1/5 of whiskey per day History - Past Medical History Cardiovascular: reports: Hypertension Respiratory: reports: None Neuro: reports: Peripheral neuropathy Endocrine/Autoimmune: reports: Type 2 diabetes GI: reports: None : reports: Benign prostate hypertrophy HEENT: reports: None Psych: reports: None Musculoskeletal: reports: Osteoarthritis, Chronic back pain Derm: reports: Eczema - Past Surgical History Ortho: reports: Knee replacement, Other HEENT: reports: Cataracts - Family & Social History Family History: Other family: Diabetes, Type 2 Living arrangement: At home Living Situation: With spouse/s.o. - Substance History Use: Uses substance without health or social issues: Tobacco (Smokes 1 ppd), Alcohol (Drinks a fifth of Whiskey per day) - POLST Patient has POLST: No Meds/Allgy - Home Medications Home Medications: Ambulatory Orders Medication Instructions Recorded Confirmed Diclofenac Submicronized 75 mg PO DAILY 02/02/24 02/02/24 [Diclofenac] Gabapentin [Gabapentin ER] 300 mg PO QID 02/02/24 02/02/24 - Allergies Allergies/Adverse Reactions: Allergies Allergy/AdvReac Type Severity Reaction Status Date / Time No Known Drug Allergies Allergy Verified 02/02/24 09:38 Exam - Vital Signs Vital Signs: Vital Signs x48h Temp Pulse Resp BP Pulse Ox 02/03/24 17:05 36.8 C 85 20 110/73 95 - Physical Exam Comments/Other: PHYSICAL EXAM: GEN: The patient is a well-nourished, well-developed individual in no acute distress. Alert; pleasant, interactive. RIGHT foot: Erythema including the dorsum of the foot starting at the ankle. It extends distally to the third fourth and fifth toes. There is an eschar on the dorsum of the fourth metatarsal. There is surrounding desquamation showing that he may have lost some swelling. There is a 1 cm eschar over the lateral aspect of the fifth MTP. No active drainage. Diminished sensation in s/s/sp/dp/t. Fires EHL/FHL/TA/GS/PER Brisk cap refill to all digits. IMAGING: Radiographs of the RIGHT Foot on February 02, 2024: No fractures or dislocations. No obvious degeneration. Mild diffuse soft tissue edema. No soft tissue gas. No evidence of osteomyelitis. MRI of the RIGHT Foot on February 02, 2024: 2.4 x 3.0 x 5.2 cm fluid collection on the dorsum of the fourth ray. The fluid collection envelops the extensor digitorum longus tendon. There is no fracture noted. No T1 marrow edema noted. Mild osteoarthrosis at the anterior tarsal and cuneiform metatarsal articulations. Conclusion and Plan - Lab Results Laboratory Results 02/03/24 20:57: POC Whole Bld Glucose 407 H 02/03/24 16:56: POC Whole Bld Glucose 304 H 02/03/24 14:33: Last Dose Date 02/03/24, Last Dose Time 1220, Vancomycin Peak 26.0 02/03/24 12:12: POC Whole Bld Glucose 186 H 02/03/24 08:55: PT 17.2 H, INR 1.6 H 02/03/24 08:55: Sodium 130 L, Potassium 3.1 L, Chloride 95 L, Carbon Dioxide 23, Anion Gap 12.0, BUN 9, Creatinine 0.7, Estimated GFR (MDRD) 115, Glucose 319 H, Calcium 8.0 L 02/03/24 08:55: WBC 10.6, RBC 3.75 L, Hgb 12.1 L, Hct 35.4 L, MCV 94.4 H, MCH 32.3 H, MCHC 34.2, RDW 11.9 L, Plt Count 175, MPV 8.9, Neut # (Auto) 7.3 H, Lymph # (Auto) 1.8, Daniels # (Auto) 1.0, Eos # (Auto) 0.3, Baso # (Auto) 0.1, Absolute Nucleated RBC 0.00, Nucleated RBC % 0.0 02/03/24 08:52: POC Whole Bld Glucose 312 H 02/02/24 23:18: POC Whole Bld Glucose 361 H 02/02/24 20:13: POC Whole Bld Glucose 431 H 02/02/24 19:42: Lactic Acid 1.5 02/02/24 11:41: Estimat Average Glucose 269 H, Hemoglobin A1c % 11.0 H 02/02/24 11:41: Sodium 133 L, Potassium 4.4, Chloride 93 L, Carbon Dioxide 25, Anion Gap 15.0 H, BUN 13, Creatinine 0.9, Estimated GFR (MDRD) 86 L, Glucose 363 H, Calcium 9.2, Total Bilirubin 0.9, AST 19, ALT 19, Alkaline Phosphatase 70, C- Reactive Protein 29.1 H, Total Protein 6.9, Albumin 3.2, Globulin 3.7, Albumin/Globulin Ratio 0.9 L, Lipase 20 02/02/24 11:41: ESR 37 H 02/02/24 11:41: WBC 14.0 H, RBC 4.14 L, Hgb 13.4 L, Hct 39.4 L, MCV 95.2 H, MCH 32.4 H, MCHC 34.0, RDW 11.9 L, Plt Count 199, MPV 8.8, Neut # (Auto) 10.1 H, Lymph # (Auto) 2.0, Daniels # (Auto) 1.6 H, Eos # (Auto) 0.1, Baso # (Auto) 0.1, Absolute Nucleated RBC 0.00, Nucleated RBC % 0.0, Manual Slide Review Indicated, WBC Morphology , Platelet Estimate NORMAL (130-450,000), Platelet Morphology NORMAL APPEARANCE, RBC Morph Micro Appear NORMAL APPEARANCE - Plan Plan: 58yo M with history of type 2 diabetes, hypertension, peripheral neuropathy, BPH, chronic back pain, eczema and alcohol abuse was admitted to the hospital for a right foot ulcer and sepsis. Orthopedics was consulted following an MRI that demonstrated a fluid collection on the dorsum of the fourth ray. Radiologist mentioned that this may be an adventitial bursa versus atypical infection. Given the size of the fluid collection it was decided that he should undergo an incision and drainage and collect intraoperative cultures. The risks, benefits and alternatives of the procedure were discussed with the patient to include bleeding, infection, damage to surrounding structures, ongoing pain, need for additional procedures to include a potential amputation and anesthesia risk such as heart attack, stroke and . The patient understood these risks and wanted to move forward with the procedure. Plan: Continue antibiotics n.p.o. at 2359 on February 03, 2024 Right foot incision and drainage on February 04, 2024 Nonweightbearing right lower extremity Referral to wound care upon discharge The patient had the treatment plan explained, questions answered and seemed satisfied with the plan. There were no apparent barriers to communication. The documentation in this note may have been entered with the assistance of computer voice recognition and dictation software. Therefore, it may contain unintended errors in text, spelling, punctuation, or grammar. John Saxena MD Orthopedic Surgeon
[2024-02-04 01:17] LABS: VANCOMYCIN,TROUGH 10.8 ug/mL
[2024-02-04 06:02] LABS: BASOPHILS # (AUTO) 0.1 10^3/uL (0.0-0.1); BASOPHILS % (AUTO) 1.2 %; EOSINOPHILS # (AUTO) 0.5 10^3/uL (0.0-0.7); EOSINOPHILS % (AUTO) 5.8 %; HCT - HEMATOCRIT 34.4 % (42.0-52.0); HGB - HEMOGLOBIN 11.6 g/dL (14.0-18.0); MEAN CORPUSCULAR HEMOGLOBIN 32.2 pg (27.0-31.0); MEAN CORPUSCULAR HGB CONC 33.7 g/dL (32.0-36.0); MEAN CORPUSCULAR VOLUME 95.6 fL (80.0-94.0); MEAN PLATELET VOLUME 9.1 fL (7.4-11.4); MONOCYTES # (AUTO) 0.8 10^3/uL (0.0-1.0); MONOCYTES % (AUTO) 9.2 %; NEUTROPHILS # (AUTO) 5.2 10^3/uL (1.5-6.6); NEUTROPHILS % (AUTO) 60.2 %; PLT - PLATELET COUNT 209 10^3/uL (130-450); RED CELL DISTRIBUTION WIDTH 11.9 % (12.0-15.0); WHITE BLOOD COUNT 8.7 x10^3/uL (4.8-10.8)
[2024-02-04 06:16] LABS: CALCIUM 7.8 mg/dL (8.5-10.3); MAGNESIUM 1.6 mg/dL (1.7-2.3); PHOSPHORUS 3.1 mg/dL (2.5-5.0); POTASSIUM 3.2 mmol/L (3.5-4.5)
[2024-02-04 06:28] LABS: THYROID STIMULATING HORMONE 2.78 uIU/mL (0.34-5.60)
--- NOTE | 2024-02-04 07:39 | PROVIDER PROGRESS NOTE ---
Subjective - Prog Note Date Prog Note Date: 02/04/24 Prog Note Time: 07:39 - Subjective Pt reports feeling: Improved Subjective: No acute events overnight. Does report that he has some increased pain in his right foot compared to yesterday. Denies any fevers, chills, night sweats, chest pain, shortness of breath, nausea, vomiting or diarrhea. Planning to go to the OR later today for I&D of the right foot. Objective - Vital Signs/Intake & Output Reviewed Vital Signs: Yes Vital Signs: Vital Signs x48h Temp Pulse Resp BP Pulse Ox 02/03/24 23:55 36.7 C 100 18 125/83 H 96 Intake & Output: Intake & Output 02/01/24 02/02/24 02/03/24 02/04/24 23:59 23:59 23:59 23:59 Intake Total 1251 3320.000 350 Balance 1251 3320.000 350 - Objective General Appearance: positive: No acute distress, Alert Eyes Bilateral: positive: Normal inspection, PERRL, EOMI ENT: positive: ENT inspection nml, Pharynx nml, No signs of dehydration Neck: positive: Nml inspection, Thyroid nml, No JVD, Trachea midline Respiratory: positive: No respiratory distress, Breath sounds nml. negative: Wheezes, Rales, Rhonchi Cardiovascular: positive: Regular rate & rhythm, No murmur, No gallop Abdomen: positive: Non-tender, No organomegaly, Nml bowel sounds, No distention Skin: positive: Warm, Dry Extremities: positive: No pedal edema, Other (Right foot has diffuse edema and erythema spreading from the right lateral ulceration area up to his ankle and extending a few centimeters proximal to the ankle. There is a hemorrhagic blister at the fourth metatarsal joint region. Large ulcer on lateral right foot.) - Lab Results Fish Bones: 02/04/24 05:33 02/04/24 05:33 Other Labs: Lab Results x24hrs 02/04/24 02/04/24 02/04/24 Range/Units 05:55 05:33 05:33 WBC 8.7 (4.8-10.8) x10^3/uL RBC 3.60 L (4.70-6.10) 10^6/uL Hgb 11.6 L (14.0-18.0) g/dL Hct 34.4 L (42.0-52.0) % MCV 95.6 H (80.0-94.0) fL MCH 32.2 H (27.0-31.0) pg MCHC 33.7 (32.0-36.0) g/dL RDW 11.9 L (12.0-15.0) % Plt Count 209 (130-450) 10^3/uL MPV 9.1 (7.4-11.4) fL Neut # (Auto) 5.2 (1.5-6.6) 10^3/uL Lymph # (Auto) 2.0 (1.5-3.5) 10^3/uL [place] # (Auto) 0.8 (0.0-1.0) 10^3/uL Eos # (Auto) 0.5 (0.0-0.7) 10^3/uL Baso # (Auto) 0.1 (0.0-0.1) 10^3/uL Absolute Nucleated RBC 0.00 x10^3/uL Nucleated RBC % 0.0 /100WBC PT (9.9-12.6) secs INR (0.8-1.2) Sodium 132 L (135-145) mmol/L Potassium 3.2 L (3.5-4.5) mmol/L Chloride 98 L (101-111) mmol/L Carbon Dioxide 25 (21-32) mmol/L Anion Gap 9.0 (6-13) BUN 17 (6-20) mg/dL Creatinine 1.0 (0.6-1.3) mg/dL Estimated GFR (MDRD) 76 L (>89) Glucose 261 H (74-104) mg/dL POC Whole Bld Glucose 254 H (70 - 100) mg/dL Calcium 7.8 L (8.5-10.3) mg/dL Phosphorus 3.1 (2.5-5.0) mg/dL Magnesium 1.6 L (1.7-2.3) mg/dL Iron 13 L (50-212) ug/dL TIBC 143 L (250-450) ug/dL % Saturation 9 L (20-50) % Transferrin 102 L (203-362) mg/dL Vitamin B12 1004 H (180-914) pg/mL TSH 2.78 (0.34-5.60) uIU/mL Last Dose Date Last Dose Time Vancomycin Peak (20.0-40.0) ug/mL Vancomycin Trough ug/mL 02/04/24 02/03/24 02/03/24 Range/Units 00:41 23:52 20:57 WBC (4.8-10.8) x10^3/uL RBC (4.70-6.10) 10^6/uL Hgb (14.0-18.0) g/dL Hct (42.0-52.0) % MCV (80.0-94.0) fL MCH (27.0-31.0) pg MCHC (32.0-36.0) g/dL RDW (12.0-15.0) % Plt Count (130-450) 10^3/uL MPV (7.4-11.4) fL Neut # (Auto) (1.5-6.6) 10^3/uL Lymph # (Auto) (1.5-3.5) 10^3/uL [place] # (Auto) (0.0-1.0) 10^3/uL Eos # (Auto) (0.0-0.7) 10^3/uL Baso # (Auto) (0.0-0.1) 10^3/uL Absolute Nucleated RBC x10^3/uL Nucleated RBC % /100WBC PT (9.9-12.6) secs INR (0.8-1.2) Sodium (135-145) mmol/L Potassium (3.5-4.5) mmol/L Chloride (101-111) mmol/L Carbon Dioxide (21-32) mmol/L Anion Gap (6-13) BUN (6-20) mg/dL Creatinine (0.6-1.3) mg/dL Estimated GFR (MDRD) (>89) Glucose (74-104) mg/dL POC Whole Bld Glucose 345 H 407 H (70 - 100) mg/dL Calcium (8.5-10.3) mg/dL Phosphorus (2.5-5.0) mg/dL Magnesium (1.7-2.3) mg/dL Iron (50-212) ug/dL TIBC (250-450) ug/dL % Saturation (20-50) % Transferrin (203-362) mg/dL Vitamin B12 (180-914) pg/mL TSH (0.34-5.60) uIU/mL Last Dose Date 02-03-24 Last Dose Time 010 Vancomycin Peak (20.0-40.0) ug/mL Vancomycin Trough 10.8 ug/mL 02/03/24 02/03/24 02/03/24 Range/Units 16:56 14:33 12:12 WBC (4.8-10.8) x10^3/uL RBC (4.70-6.10) 10^6/uL Hgb (14.0-18.0) g/dL Hct (42.0-52.0) % MCV (80.0-94.0) fL MCH (27.0-31.0) pg MCHC (32.0-36.0) g/dL RDW (12.0-15.0) % Plt Count (130-450) 10^3/uL MPV (7.4-11.4) fL Neut # (Auto) (1.5-6.6) 10^3/uL Lymph # (Auto) (1.5-3.5) 10^3/uL [place] # (Auto) (0.0-1.0) 10^3/uL Eos # (Auto) (0.0-0.7) 10^3/uL Baso # (Auto) (0.0-0.1) 10^3/uL Absolute Nucleated RBC x10^3/uL Nucleated RBC % /100WBC PT (9.9-12.6) secs INR (0.8-1.2) Sodium (135-145) mmol/L Potassium (3.5-4.5) mmol/L Chloride (101-111) mmol/L Carbon Dioxide (21-32) mmol/L Anion Gap (6-13) BUN (6-20) mg/dL Creatinine (0.6-1.3) mg/dL Estimated GFR (MDRD) (>89) Glucose (74-104) mg/dL POC Whole Bld Glucose 304 H 186 H (70 - 100) mg/dL Calcium (8.5-10.3) mg/dL Phosphorus (2.5-5.0) mg/dL Magnesium (1.7-2.3) mg/dL Iron (50-212) ug/dL TIBC (250-450) ug/dL % Saturation (20-50) % Transferrin (203-362) mg/dL Vitamin B12 (180-914) pg/mL TSH (0.34-5.60) uIU/mL Last Dose Date 02/03/24 Last Dose Time 1220 Vancomycin Peak 26.0 (20.0-40.0) ug/mL Vancomycin Trough ug/mL 02/03/24 02/03/24 02/03/24 Range/Units 08:55 08:55 08:55 WBC 10.6 (4.8-10.8) x10^3/uL RBC 3.75 L (4.70-6.10) 10^6/uL Hgb 12.1 L (14.0-18.0) g/dL Hct 35.4 L (42.0-52.0) % MCV 94.4 H (80.0-94.0) fL MCH 32.3 H (27.0-31.0) pg MCHC 34.2 (32.0-36.0) g/dL RDW 11.9 L (12.0-15.0) % Plt Count 175 (130-450) 10^3/uL MPV 8.9 (7.4-11.4) fL Neut # (Auto) 7.3 H (1.5-6.6) 10^3/uL Lymph # (Auto) 1.8 (1.5-3.5) 10^3/uL [place] # (Auto) 1.0 (0.0-1.0) 10^3/uL Eos # (Auto) 0.3 (0.0-0.7) 10^3/uL Baso # (Auto) 0.1 (0.0-0.1) 10^3/uL Absolute Nucleated RBC 0.00 x10^3/uL Nucleated RBC % 0.0 /100WBC PT 17.2 H (9.9-12.6) secs INR 1.6 H (0.8-1.2) Sodium 130 L (135-145) mmol/L Potassium 3.1 L (3.5-4.5) mmol/L Chloride 95 L (101-111) mmol/L Carbon Dioxide 23 (21-32) mmol/L Anion Gap 12.0 (6-13) BUN 9 (6-20) mg/dL Creatinine 0.7 (0.6-1.3) mg/dL Estimated GFR (MDRD) 115 (>89) Glucose 319 H (74-104) mg/dL POC Whole Bld Glucose (70 - 100) mg/dL Calcium 8.0 L (8.5-10.3) mg/dL Phosphorus (2.5-5.0) mg/dL Magnesium (1.7-2.3) mg/dL Iron (50-212) ug/dL TIBC (250-450) ug/dL % Saturation (20-50) % Transferrin (203-362) mg/dL Vitamin B12 (180-914) pg/mL TSH (0.34-5.60) uIU/mL Last Dose Date Last Dose Time Vancomycin Peak (20.0-40.0) ug/mL Vancomycin Trough ug/mL 02/03/24 Range/Units 08:52 WBC (4.8-10.8) x10^3/uL RBC (4.70-6.10) 10^6/uL Hgb (14.0-18.0) g/dL Hct (42.0-52.0) % MCV (80.0-94.0) fL MCH (27.0-31.0) pg MCHC (32.0-36.0) g/dL RDW (12.0-15.0) % Plt Count (130-450) 10^3/uL MPV (7.4-11.4) fL Neut # (Auto) (1.5-6.6) 10^3/uL Lymph # (Auto) (1.5-3.5) 10^3/uL [place] # (Auto) (0.0-1.0) 10^3/uL Eos # (Auto) (0.0-0.7) 10^3/uL Baso # (Auto) (0.0-0.1) 10^3/uL Absolute Nucleated RBC x10^3/uL Nucleated RBC % /100WBC PT (9.9-12.6) secs INR (0.8-1.2) Sodium (135-145) mmol/L Potassium (3.5-4.5) mmol/L Chloride (101-111) mmol/L Carbon Dioxide (21-32) mmol/L Anion Gap (6-13) BUN (6-20) mg/dL Creatinine (0.6-1.3) mg/dL Estimated GFR (MDRD) (>89) Glucose (74-104) mg/dL POC Whole Bld Glucose 312 H (70 - 100) mg/dL Calcium (8.5-10.3) mg/dL Phosphorus (2.5-5.0) mg/dL Magnesium (1.7-2.3) mg/dL Iron (50-212) ug/dL TIBC (250-450) ug/dL % Saturation (20-50) % Transferrin (203-362) mg/dL Vitamin B12 (180-914) pg/mL TSH (0.34-5.60) uIU/mL Last Dose Date Last Dose Time Vancomycin Peak (20.0-40.0) ug/mL Vancomycin Trough ug/mL - Diagnostic Imaging Diagnostic Imaging Comments: Foot X-ray: No plain film evidence of osteomyelitis. Right Foot MRI: 1. No MRI evidence of osteomyelitis at this time. 2. Scattered osteoarthrosis at the intertarsal and cuneiform metatarsal articulations, which can be seen in the setting of neuropathic arthropathy. 3. Lobulated 5.2 cm fluid collection along the fourth metatarsophalangeal articulation. While this collection may represent an adventitial bursa, consider the possibility of an underlying fungal or atypical bacterial (Nocardia, Actinomyces) infection. Sepsis Event Note (H) - Evaluation Current Stage of Sepsis: Resolved Possible source of Sepsis: positive: Skin/soft tissue Assessment/Plan - Problem List (1) Diabetic infection of right foot Impression: He reports having a right foot wound ever since a bunion developed on the right lateral aspect of his foot approximately four months ago. It has been progressively worsening since then and in the past month it has become more of an open ulcer. Over the past week it has been erythematous and more painful, and he was prescribed Keflex on 02/27. The infection seemed to progress despite this and he was prescribed Bactrim 2 days ago and his symptoms continued to worsen. -MRI of the right foot is negative for osteomyelitis, but does show a fluid collection. -Blood cultures NGTD. Outpatient wound culture growing MSSA. -Continue IV vancomycin and Zosyn. Can de-escalate once we see intra-operative cultures. -Orthopedic Surgery (Dr. John Saxena) consulted to evaluate for I&D, planning for this to occur later today. -Arterial duplex of right leg pending; preliminary read indicates occluded SFA with reconstitution distally via collaterals. (2) Sepsis Impression: He met criteria for sepsis due to elevated white blood cell count along with tachycardia in the setting of a right diabetic foot infection. He does not meet criteria for severe sepsis. -Lactic acid is normal. Blood cultures NGTD. -Continue IV antibiotics as noted above. -Sepsis has resolved. Qualifiers: Sepsis acute organ dysfunction status: without acute organ dysfunction (3) Uncontrolled diabetes mellitus Impression: He has been prescribed metformin previously but had diarrhea with this. He was then prescribed Glimepiride, but he does not take this because he did not feel that this improved his glucose at all. He currently is not taking any medications for diabetes at this time. -A1c is 11%. -Change Lantus to 10 units BID and continue SSI q6hr while NPO. Qualifiers: Diabetes mellitus type: type 2 Glycemic state: with hyperglycemia Qualified Code(s): E11.65 - Type 2 diabetes mellitus with hyperglycemia (4) Alcohol use disorder Impression: He drinks heavily at home and usually has a fifth of whiskey per day. -Received IV thiamine in the ED. Continue multivitamin with and PO thiamine. -Placed on Librium 25 mg TID. No signs of alcohol withdrawal yet. Would order CIWA protocol if symptoms arise. -If no symptoms by tomorrow, can reduce Librium to BID. (5) Hypertension Impression: He is not taking any medications for this currently. -Started lisinopril 10 mg daily yesterday. Will hold todays dose due to him going to the OR. -Can have as needed hydralazine if the blood pressure increases significantly. (6) Peripheral neuropathy Impression: He has diabetic peripheral neuropathy in both of his lower extremities. -Continue home gabapentin. (7) BPH (benign prostatic hyperplasia) Impression: He does not take any medication for this at this time. -Monitor for signs/symptoms of urinary retention. (8) Tobacco use disorder Impression: Counseled on smoking cessation. -Continue Nicotine patch.
[2024-02-04] MEDS: FERROUS SULFATE 325 MG TABLET PO SCH (08:39)
[2024-02-04] MEDS: POTASSIUM CHLORIDE 20 MEQ TABLET PO ONE (08:39)
[2024-02-04] MEDS: HYDROmorphone 1 MG/ML CARPUJECT IVP PRN (08:40)
[2024-02-04] MEDS: MAGNESIUM SULFATE 2 GRAM 2 GM/50 ML BAG IV ONE (08:41)
[2024-02-04] MEDS: VANCOMYCIN INJ 1.25 GM in SODIUM CHLORIDE 0.9% 250 ML IV SCH (11:41)
[2024-02-04] MEDS ORDERED: BUPIVACAINE 0.25% PF 30 ML VIAL ONE (12:35)
[2024-02-04] MEDS ORDERED: ATROPINE ABBOJECT 1 MG/10 ML SYRINGE IVP PRN (12:37)
[2024-02-04] MEDS ORDERED: HYDROmorphone 0.5 MG/0.5 ML SYRINGE IVP PRN (12:37)
[2024-02-04] MEDS ORDERED: ONDANSETRON 4 MG/2 ML VIAL IVP PRN (12:37)
[2024-02-04] MEDS ORDERED: fentaNYL 100 MCG/2 ML VIAL IVP PRN (12:37)
[2024-02-04] MEDS ORDERED: MORPHINE 2 MG/ML CARPUJECT IVP PRN (12:37)
[2024-02-04] MEDS ORDERED: NALOXONE 0.4 MG/ML VIAL IVP PRN (12:37)
--- NOTE | 2024-02-04 12:37 | ANESTHESIA ---
Pre-Anesthesia VS, & Labs - Diagnosis Right foot infection - Procedure right foot I&D Vital Signs: Temp Pulse Resp BP Pulse Ox O2 Flow Rate 37.7 C 107 H 12 111/80 93 02/04/24 08:00 02/04/24 08:00 02/04/24 08:00 02/04/24 08:00 02/04/24 08:00 Height: 5 ft 9 in Weight (kg): 104 kg Body Mass Index: 33.8 BMI Classification: Obese - NPO >8 hours - Lab Results Current Lab Results: Laboratory Tests 02/04/24 11:34: POC Whole Bld Glucose 255 H 02/04/24 08:07: POC Whole Bld Glucose 258 H 02/04/24 05:55: POC Whole Bld Glucose 254 H 02/04/24 05:33: Folate 23.7 02/04/24 05:33: Sodium 132 L, Potassium 3.2 L, Chloride 98 L, Carbon Dioxide 25, Anion Gap 9.0, BUN 17, Creatinine 1.0, Estimated GFR (MDRD) 76 L, Glucose 261 H, Calcium 7.8 L, Phosphorus 3.1, Magnesium 1.6 L, Iron 13 L, TIBC 143 L, % S aturation 9 L, Transferrin 102 L, Vitamin B12 1004 H, TSH 2.78 02/04/24 05:33: WBC 8.7, RBC 3.60 L, Hgb 11.6 L, Hct 34.4 L, MCV 95.6 H, MCH 32.2 H, MCHC 33.7, RDW 11.9 L, Plt Count 209, MPV 9.1, Neut # (Auto) 5.2, Lymph # (Auto) 2.0, Cross # (Auto) 0.8, Eos # (Auto) 0.5, Baso # (Auto) 0.1, Absolute Nucleated RBC 0.00, Nucleated RBC % 0.0 02/04/24 00:41: Last Dose Date 02-03-24, Last Dose Time 0100, Vancomycin Trough 10.8 02/03/24 23:52: POC Whole Bld Glucose 345 H 02/03/24 20:57: POC Whole Bld Glucose 407 H 02/03/24 16:56: POC Whole Bld Glucose 304 H 02/03/24 14:33: Last Dose Date 02/03/24, Last Dose Time 1220, Vancomycin Peak 26.0 02/03/24 12:12: POC Whole Bld Glucose 186 H 02/03/24 08:55: PT 17.2 H, INR 1.6 H 02/03/24 08:55: Sodium 130 L, Potassium 3.1 L, Chloride 95 L, Carbon Dioxide 23, Anion Gap 12.0, BUN 9, Creatinine 0.7, Estimated GFR (MDRD) 115, Glucose 319 H, Calcium 8.0 L 02/03/24 08:55: WBC 10.6, RBC 3.75 L, Hgb 12.1 L, Hct 35.4 L, MCV 94.4 H, MCH 32.3 H, MCHC 34.2, RDW 11.9 L, Plt Count 175, MPV 8.9, Neut # (Auto) 7.3 H, Lymph # (Auto) 1.8, Cross # (Auto) 1.0, Eos # (Auto) 0.3, Baso # (Auto) 0.1, Absolute Nucleated RBC 0.00, Nucleated RBC % 0.0 02/03/24 08:52: POC Whole Bld Glucose 312 H 02/02/24 23:18: POC Whole Bld Glucose 361 H 02/02/24 20:13: POC Whole Bld Glucose 431 H 02/02/24 19:42: Lactic Acid 1.5 02/02/24 11:41: Estimat Average Glucose 269 H, Hemoglobin A1c % 11.0 H 02/02/24 11:41: Sodium 133 L, Potassium 4.4, Chloride 93 L, Carbon Dioxide 25, Anion Gap 15.0 H, BUN 13, Creatinine 0.9, Estimated GFR (MDRD) 86 L, Glucose 363 H, Calcium 9.2, Total Bilirubin 0.9, AST 19, ALT 19, Alkaline Phosphatase 70, C- Reactive Protein 29.1 H, Total Protein 6.9, Albumin 3.2, Globulin 3.7, Albumin/Globulin Ratio 0.9 L, Lipase 20 02/02/24 11:41: ESR 37 H 02/02/24 11:41: WBC 14.0 H, RBC 4.14 L, Hgb 13.4 L, Hct 39.4 L, MCV 95.2 H, MCH 32.4 H, MCHC 34.0, RDW 11.9 L, Plt Count 199, MPV 8.8, Neut # (Auto) 10.1 H, Lymph # (Auto) 2.0, Cross # (Auto) 1.6 H, Eos # (Auto) 0.1, Baso # (Auto) 0.1, Absolute Nucleated RBC 0.00, Nucleated RBC % 0.0, Manual Slide Review Indicated, WBC Morphology , Platelet Estimate NORMAL (130-450,000), Platelet Morphology NORMAL APPEARANCE, RBC Morph Micro Appear NORMAL APPEARANCE Lab results reviewed: Yes Fish Bones: 02/04/24 05:33 02/04/24 05:33 Home Medications and Allergies Home Medications: Ambulatory Orders Diclofenac Submicronized [Diclofenac] 75 mg PO DAILY 02/02/24 Gabapentin [Gabapentin ER] 300 mg PO QID 02/02/24 Active Medications Acetaminophen (Acetaminophen 325 Mg Tablet) 650 mg PO Q4HR PRN PRN Reason: Pain 1 to 4, or Fever Ascorbic Acid (Ascorbic Acid 500 Mg Tablet) 500 mg PO DAILY [facility] Chlordiazepoxide HCl (Chlordiazepoxide 25 Mg Capsule) 25 mg PO TID [facility] Last Admin: 02/04/24 06:05 Dose: 25 mg Diclofenac Sodium (Diclofenac Sodium Dr 75 Mg Tablet) 75 mg PO DAILY [facility] Last Admin: 02/04/24 08:38 Dose: 75 mg Ferrous Sulfate (Ferrous Sulfate 325 Mg Tablet) 325 mg PO DAILYWM [facility] Last Admin: 02/04/24 08:39 Dose: 325 mg Gabapentin (Gabapentin 300 Mg Capsule) 300 mg PO QID [facility] Last Admin: 02/04/24 08:38 Dose: 300 mg Hydromorphone HCl (Hydromorphone 1 Mg/Ml Carpuject) 1 mg IVP Q4H PRN PRN Reason: Breakthrough Pain Last Admin: 02/04/24 08:40 Dose: 1 mg Piperacillin Sod/Tazobactam (Sod 4.5 gm/ Sodium Chloride) 100 mls @ 25 mls/hr IV Q8H [facility] Last Admin: 02/04/24 08:40 Dose: 25 mls/hr Vancomycin HCl 1.25 gm/ Sodium (Chloride) 250 mls @ 166.667 mls/hr IV Q12H [facility] Last Admin: 02/04/24 11:41 Dose: 166.667 mls/hr Insulin Glargine-yfgn (Insulin Glargine-Yfgn 300 Unit/3 Ml Pen) 10 unit SUBQ BID [facility] Last Admin: 02/04/24 08:41 Dose: 10 unit Insulin Human Regular (Insulin Regular, Human 300 Unit/3 Ml Pen) 3 - 11 unit SUBQ Q6HR [facility]; Protocol Last Admin: 02/04/24 11:41 Dose: 7 unit Lisinopril (Lisinopril 20 Mg Tablet) 10 mg PO DAILY [facility] Melatonin (Melatonin 3 Mg Tablet) 6 mg PO QPM PRN PRN Reason: Insomnia Ondansetron HCl (Ondansetron Odt 4 Mg Tablet) 4 mg TL Q6HR PRN PRN Reason: Nausea / Vomiting Ondansetron HCl (Ondansetron 4 Mg/2 Ml Vial) 4 mg IVP Q6HR PRN PRN Reason: Nausea / Vomiting Oxycodone HCl (Oxycodone 5 Mg Tablet) 10 mg PO Q4HR PRN PRN Reason: Pain 8 to 10 Last Admin: 02/04/24 11:41 Dose: 10 mg Oxycodone HCl (Oxycodone 5 Mg Tablet) 5 mg PO Q4HR PRN PRN Reason: Pain 5 to 7 Last Admin: 02/04/24 06:46 Dose: 5 mg Multivit/Folic Acid/Iron ( Vitamin Tablet) 1 tab PO DAILYWM [facility] Sodium Chloride (Sodium Chloride Flush 0.9% 10 Ml Syringe) 10 ml IVP PRN PRN PRN Reason: NEEDED PER PROVIDER ORDERS Sodium Chloride (Sodium Chloride Flush 0.9% 10 Ml Syringe) 10 ml IVP 0100,0900,1700 [facility] Last Admin: 02/04/24 08:41 Dose: 10 ml Thiamine HCl (Thiamine 100 Mg Tablet) 100 mg PO DAILY [facility] Last Admin: 02/04/24 08:39 Dose: 100 mg Diclofenac Submicronized [Diclofenac] 75 mg PO DAILY 02/02/24 Gabapentin [Gabapentin ER] 300 mg PO QID 02/02/24 Allergies/Adverse Reactions: Allergies Allergy/AdvReac Type Severity Reaction Status Date / Time No Known Drug Allergies Allergy Verified 02/02/24 09:38 Anes History & Medical History - Anesthetic History Anesthesia Complications: reports: No previous complications - Medical History Cardiovascular: reports: Hypertension Pulmonary: reports: None Gastrointestinal: reports: None Urinary: reports: Benign prostate hypertrophy Neuro: reports: Peripheral neuropathy Musculoskeletal: reports: Osteoarthritis, Chronic back pain Endocrine/Autoimmune: reports: Type 2 diabetes Blood Disorders: reports: None Skin: reports: Eczema Smoking Status: Current every day smoker Psychosocial: reports: Alcohol (Daily use) History of Cancer?: No - Surgical History Eyes Ears Nose Throat (EENT): reports: Cataracts Orthopedic: reports: Knee replacement, Other Exam General: Alert, Oriented x3, Cooperative, No acute distress Dental: Poor dentition Mouth Openin Fingerbreadth Neck Mobility: Reduced Mallampati classification: II Thyromental Distance: 4-6 cm Mental/Cognitive Status: Alert/Oriented X3, Normal for patient Plan Anesthesia Type: General Consent for Procedure(s) Verified and Reviewed: Yes Code Status: Attempt Resuscitation ASA classification: 3-Severe systemic disease Is this case an emergency?: No
[2024-02-04] MEDS ORDERED: PROPOFOL 200 MG/20 ML VIAL IVP ONE (12:50)
[2024-02-04] MEDS ORDERED: fentaNYL 100 MCG/2 ML VIAL ONE (12:51)
[2024-02-04] MEDS: LACTATED RINGERS 1,000 ML IV SCH (12:51)
[2024-02-04] MEDS ORDERED: MIDAZOLAM 2 MG/2 ML VIAL ONE (12:51)
[2024-02-04] MEDS ORDERED: PROPOFOL 500 MG/50 ML 500 MG/50 ML VIAL ONE (12:57)
[2024-02-04] MEDS ORDERED: ACETAMINOPHEN 1,000 MG/100 ML 1,000 MG/100 ML BAG IV ONE (13:26)
[2024-02-04] MEDS: BUPIVACAINE 0.25% PF 30 ML VIAL SUBQ ONE ×2 (13:39)
[2024-02-04] MEDS ORDERED: DOCUSATE SODIUM 100 MG CAPSULE PO PRN (14:13)
[2024-02-04] MEDS: LACTATED RINGERS 1,000 ML IV ONE (14:13)
--- NOTE | 2024-02-04 14:18 | OPERATIVE REPORT ---
Operative Report - General Admit Date: 02/02/24 Procedure Date: 02/04/24 Planned Procedure: RIGHT Foot I&D Pre-Op Diagnosis: RIGHT Foot Abscess Procedure Performed: RIGHT Foot I&D Post Op Diagnosis: RIGHT Foot Ulcer and Abscess - Procedure Note Primary Surgeon: Hemanth Secondary Surgeon: Lucy Anesthesia Provider: Pedro Pathology: Cultures sent to lab Estimated Blood Loss (mL): 10 Indications: Right foot abscess seen on MRI Findings: Large fluid collection and mild purulence Complications: None - Other Other Information/Narrative: Laterality: RIGHT Preoperative diagnosis: Foot ulcer and abscess Procedure performed: RIGHT foot incision and drainage Postoperative diagnosis: Same Primary Surgeon: John Saxena MD Secondary Surgeon: FELIX Vanegas Anesthesia: Local / MAC EBL: 10 ml Tourniquet: NA Implants: NONE Indication For Surgery: The patient had progressing erythema and swelling about the dorsum of the right foot. He was not improving with nonoperative treatments to include immobilization, elevation and antibiotics. The risks, benefits, and alternatives were discussed. Risks include pain, bleeding, infection, damage to nearby structures, lack of symptom relief, need for further surgery, DVT, PE, stroke, and . Written consent was obtained. Operative Findings: Fluid collection over the fourth metatarsal. Mild purulence. Procedure in Detail: The patient was met in the pre-operative hold area. Consent was verified and operative extremity was signed. The patient then met with anesthesia and was brought back to the operating room. The patient was placed supine on the operating table. A local anesthetic and MAC was administered. The extremity was then prepped and draped in the usual sterile fashion. A timeout was performed per protocol. All were in agreement and we proceeded. A 4 cm longitudinal incision was made over the fluid collection. We immediately had decompression of the fluid with mild purulence. Cultures were obtained. The fluid collection was then further decompressed with a hemostat. the primary abscess tract to the lateral ulcer. The tissue was then scrubbed with a curette and irrigated with 8 L of sterile normal saline. There was only small amount of bleeding throughout the tissue. The incision was then closed with 3-0 nylon loosely. Local anesthetic was placed. A sterile dressing and splint were applied. The patient was awakened and transferred to the recovery room. Postoperative Plan: Admission to medicine strict elevation nonweightbearing right lower extremity continue IV antibiotics DVT prophylaxis per primary team obtain CRP and CBC on the morning of February 06, 2024 n.p.o. for potential OR on February 06, 2024 John Saxena MD
--- NOTE | 2024-02-04 15:40 | ANESTHESIA POST OP EVALUATION ---
Anesthesia Post Eval - Post Anesthesia Eval Vitals: Last Vital Signs Temp 38.2 C H 02/04/24 14:30 Pulse 97 02/04/24 14:35 Resp 16 02/04/24 14:35 BP 110/71 02/04/24 14:35 Pulse Ox 97 02/04/24 14:35 O2 Flow Rate CV Function Including HR & BP: Stable Pain Control: Satisfactory Nausea & Vomiting: Negative Mental Status: Baseline Respiratory Status: Airway Patent Hydration Status: Satisfactory Anesthesia Complications: None
[2024-02-04] MEDS: ASCORBIC ACID 500 MG TABLET PO SCH (16:30)
[2024-02-04] MEDS: VANCOMYCIN INJ 1 GM, VANCOMYCIN INJ 250 MG in SODIUM CHLORIDE 0.9% 250 ML IV SCH (16:48)
[2024-02-04] MEDS: INSULIN LISPRO 300 UNIT/3 ML PEN SUBQ SCH ×2 (16:54)
[2024-02-04] MEDS ORDERED: INSULIN GLARGINE-YFGN 300 UNIT/3 ML PEN SUBQ SCH (21:00)
[2024-02-04] MEDS: INSULIN GLARGINE-YFGN 300 UNIT/3 ML PEN SUBQ SCH (21:30)
[2024-02-04] MEDS: HEPARIN 5,000 UNIT/ML VIAL SUBQ SCH (21:31)
[2024-02-05 05:31] LABS: BASOPHILS # (AUTO) 0.1 10^3/uL (0.0-0.1); BASOPHILS % (AUTO) 1.1 %; EOSINOPHILS # (AUTO) 0.5 10^3/uL (0.0-0.7); EOSINOPHILS % (AUTO) 4.9 %; HGB - HEMOGLOBIN 11.8 g/dL (14.0-18.0); LYMPHOCYTES # (AUTO) 2.1 10^3/uL (1.5-3.5); LYMPHOCYTES % (AUTO) 20.6 %; MEAN CORPUSCULAR HEMOGLOBIN 31.6 pg (27.0-31.0); MEAN CORPUSCULAR HGB CONC 31.9 g/dL (32.0-36.0); MEAN CORPUSCULAR VOLUME 99.2 fL (80.0-94.0); MEAN PLATELET VOLUME 9.2 fL (7.4-11.4); MONOCYTES # (AUTO) 1.1 10^3/uL (0.0-1.0); MONOCYTES % (AUTO) 11.4 %; NEUTROPHILS # (AUTO) 6.1 10^3/uL (1.5-6.6); NEUTROPHILS % (AUTO) 61.4 %; PLT - PLATELET COUNT 210 10^3/uL (130-450); RED BLOOD COUNT 3.73 10^6/uL (4.70-6.10); RED CELL DISTRIBUTION WIDTH 12.1 % (12.0-15.0); WHITE BLOOD COUNT 9.9 x10^3/uL (4.8-10.8)
[2024-02-05 05:48] LABS: CALCIUM 8.1 mg/dL (8.5-10.3); CREATININE 1.7 mg/dL (0.6-1.3); MAGNESIUM 1.9 mg/dL (1.7-2.3); POTASSIUM 3.5 mmol/L (3.5-4.5)
--- NOTE | 2024-02-05 07:14 | PROVIDER PROGRESS NOTE ---
Subjective - Prog Note Date Prog Note Date: 02/05/24 Prog Note Time: 07:14 - Subjective Pt reports feeling: Improved Subjective: Underwent operative I&D by orthopedic surgery yesterday. Today reports that his pain is appropriately controlled and has no specific complaints. He has been more tachycardic and hypertensive though the patient denies having any tremors, diaphoresis, anxiety, hallucinations. He reports feeling a bit groggy this morning but otherwise has no complaints. Denies any chest pain, dyspnea, cough, vomiting, diarrhea. Of note his blood cultures on admission are now growing gram-positive cocci in clusters. A PCR panel is showing Staphylococcus epidermidis that appears to be methicillin resistant. Objective - Vital Signs/Intake & Output Reviewed Vital Signs: Yes Vital Signs: Vital Signs x48h Temp Pulse Resp BP Pulse Ox 02/05/24 05:15 36.9 C 115 H 18 150/99 H 96 02/05/24 00:35 36.6 C 90 16 115/76 98 Intake & Output: Intake & Output 02/02/24 02/03/24 02/04/24 02/05/24 23:59 23:59 23:59 23:59 Intake Total 1251 3320.000 2580 447 Balance 1251 3320.000 2580 447 - Objective General Appearance: positive: Alert, Mild distress Eyes Bilateral: positive: Normal inspection, PERRL, EOMI ENT: positive: ENT inspection nml, Pharynx nml, No signs of dehydration Neck: positive: Nml inspection, Thyroid nml, No JVD, Trachea midline Respiratory: positive: No respiratory distress, Breath sounds nml. negative: W heezes, Rales, Rhonchi Cardiovascular: positive: No murmur, No gallop, Tachycardia Abdomen: positive: Non-tender, No organomegaly, Nml bowel sounds, No distention Back: positive: Nml inspection Skin: positive: Warm, Dry, Other (Skin feels warm to the touch and diffusely erythematous throughout his body.) Extremities: positive: Other (Right foot is wrapped in surgical dressing and splint. Toes of right foot have appropriate capillary refill.) Neurologic/Psychiatric: positive: Oriented x3, CN's nml (2-12), Motor nml, Sensation nml, Other (No tremor noted.) - Lab Results Fish Bones: 02/05/24 04:37 09/07/24 04:37 Other Labs: Lab Results x24hrs 02/05/24 02/05/24 02/04/24 Range/Units 04:37 04:37 20:51 WBC 9.9 (4.8-10.8) x10^3/uL RBC 3.73 L (4.70-6.10) 10^6/uL Hgb 11.8 L (14.0-18.0) g/dL Hct 37.0 L (42.0-52.0) % MCV 99.2 H (80.0-94.0) fL MCH 31.6 H (27.0-31.0) pg MCHC 31.9 L (32.0-36.0) g/dL RDW 12.1 (12.0-15.0) % Plt Count 210 (130-450) 10^3/uL MPV 9.2 (7.4-11.4) fL Neut # (Auto) 6.1 (1.5-6.6) 10^3/uL Lymph # (Auto) 2.1 (1.5-3.5) 10^3/uL Pershing # (Auto) 1.1 H (0.0-1.0) 10^3/uL Eos # (Auto) 0.5 (0.0-0.7) 10^3/uL Baso # (Auto) 0.1 (0.0-0.1) 10^3/uL Absolute Nucleated RBC 0.00 x10^3/uL Nucleated RBC % 0.0 /100WBC Sodium 133 L (135-145) mmol/L Potassium 3.5 (3.5-4.5) mmol/L Chloride 99 L (101-111) mmol/L Carbon Dioxide 25 (21-32) mmol/L Anion Gap 9.0 (6-13) BUN 22 H (6-20) mg/dL Creatinine 1.7 H (0.6-1.3) mg/dL Estimated GFR (MDRD) 41 L (>89) Glucose 311 H (74-104) mg/dL POC Whole Bld Glucose 190 H (70 - 100) mg/dL Calcium 8.1 L (8.5-10.3) mg/dL Magnesium 1.9 (1.7-2.3) mg/dL Folate (5.90 - >24.8) ng/mL 02/04/24 02/04/24 02/04/24 Range/Units 16:39 14:19 11:34 WBC (4.8-10.8) x10^3/uL RBC (4.70-6.10) 10^6/uL Hgb (14.0-18.0) g/dL Hct (42.0-52.0) % MCV (80.0-94.0) fL MCH (27.0-31.0) pg MCHC (32.0-36.0) g/dL RDW (12.0-15.0) % Plt Count (130-450) 10^3/uL MPV (7.4-11.4) fL Neut # (Auto) (1.5-6.6) 10^3/uL Lymph # (Auto) (1.5-3.5) 10^3/uL Pershing # (Auto) (0.0-1.0) 10^3/uL Eos # (Auto) (0.0-0.7) 10^3/uL Baso # (Auto) (0.0-0.1) 10^3/uL Absolute Nucleated RBC x10^3/uL Nucleated RBC % /100WBC Sodium (135-145) mmol/L Potassium (3.5-4.5) mmol/L Chloride (101-111) mmol/L Carbon Dioxide (21-32) mmol/L Anion Gap (6-13) BUN (6-20) mg/dL Creatinine (0.6-1.3) mg/dL Estimated GFR (MDRD) (>89) Glucose (74-104) mg/dL POC Whole Bld Glucose 156 H 227 H 255 H (70 - 100) mg/dL Calcium (8.5-10.3) mg/dL Magnesium (1.7-2.3) mg/dL Folate (5.90 - >24.8) ng/mL 02/04/24 02/04/24 Range/Units 08:07 05:33 WBC (4.8-10.8) x10^3/uL RBC (4.70-6.10) 10^6/uL Hgb (14.0-18.0) g/dL Hct (42.0-52.0) % MCV (80.0-94.0) fL MCH (27.0-31.0) pg MCHC (32.0-36.0) g/dL RDW (12.0-15.0) % Plt Count (130-450) 10^3/uL MPV (7.4-11.4) fL Neut # (Auto) (1.5-6.6) 10^3/uL Lymph # (Auto) (1.5-3.5) 10^3/uL Pershing # (Auto) (0.0-1.0) 10^3/uL Eos # (Auto) (0.0-0.7) 10^3/uL Baso # (Auto) (0.0-0.1) 10^3/uL Absolute Nucleated RBC x10^3/uL Nucleated RBC % /100WBC Sodium (135-145) mmol/L Potassium (3.5-4.5) mmol/L Chloride (101-111) mmol/L Carbon Dioxide (21-32) mmol/L Anion Gap (6-13) BUN (6-20) mg/dL Creatinine (0.6-1.3) mg/dL Estimated GFR (MDRD) (>89) Glucose (74-104) mg/dL POC Whole Bld Glucose 258 H (70 - 100) mg/dL Calcium (8.5-10.3) mg/dL Magnesium (1.7-2.3) mg/dL Folate 23.7 (5.90 - >24.8) ng/mL - Diagnostic Imaging Diagnostic Imaging Comments: Foot X-ray: No plain film evidence of osteomyelitis. Right Foot MRI: 1. No MRI evidence of osteomyelitis at this time. 2. Scattered osteoarthrosis at the intertarsal and cuneiform metatarsal articulations, which can be seen in the setting of neuropathic arthropathy. 3. Lobulated 5.2 cm fluid collection along the fourth metatarsophalangeal articulation. While this collection may represent an adventitial bursa, consider the possibility of an underlying fungal or atypical bacterial (Nocardia, Actinomyces) infection. Sepsis Event Note (H) - Evaluation Current Stage of Sepsis: Resolved Possible source of Sepsis: positive: Skin/soft tissue Assessment/Plan - Problem List (1) Diabetic infection of right foot Impression: He reports having a right foot wound ever since a bunion developed on the right lateral aspect of his foot approximately four months ago. It has been progressively worsening since then and in the past month it has become more of an open ulcer. Over the past week it has been erythematous and more painful, and he was prescribed Keflex on 02/27. The infection seemed to progress despite this and he was prescribed Bactrim 2 days ago and his symptoms continued to worsen. -MRI of the right foot is negative for osteomyelitis, but does show a fluid collection. -Blood cultures with Staph epidermidis (Methicillin-resistant). Outpatient wound culture growing MSSA. -Continue IV vancomycin and Zosyn. Can de-escalate once we see intra-operative cultures. -Orthopedic Surgery (Dr. John Saxena) consulted, appreciate assistance. Underwent I&D on 02/04/24. Wound cultures, anaerobic and fungal cultures all pending. -Arterial duplex of right leg still pending; preliminary read indicates occluded SFA with reconstitution distally via collaterals. (2) Bacteremia due to Staphylococcus epidermidis Impression: His blood culture from admission is growing gram-positive cocci in clusters with a PCR panel that is showing Staphylococcus epidermidis that carries the methicillin resistant gene. -Place in contact precautions. -Continue IV vancomycin and Zosyn for the time being. Await official culture data and sensitivities. -Repeat blood cultures today. -While typically staphylococcus epidermidis is a contaminant, this could be pathogenic given his diabetic foot infection with open ulceration/wound. (3) Sepsis Impression: He met criteria for sepsis due to elevated white blood cell count along with tachycardia in the setting of a right diabetic foot infection. He does not meet criteria for severe sepsis. -Lactic acid is normal. Blood cultures positive as noted above. -Continue IV antibiotics as noted above. -Sepsis had resolved, but he is more tachycardic this morning - monitor for development of fevers vs alcohol withdrawal. Qualifiers: Sepsis acute organ dysfunction status: without acute organ dysfunction (4) SERENA (acute kidney injury) Impression: His creatinine was normal on presentation but has been slowly increasing every day. Today it jumped from 1.0 to 1.7. This could be a combination of PAPA induced SERENA with contribution from vancomycin induced SERENA versus prerenal causes from sepsis/infection. -Will discontinue lisinopril (last/first dose was 02/02). Pharmacy to monitor vancomycin trough levels and adjust vancomycin dosing as indicated. -Will give a 1 L normal saline bolus. -Avoid unnecessary nephrotoxins and repeat BMP tomorrow. (5) Uncontrolled diabetes mellitus Impression: He has been prescribed metformin previously but had diarrhea with this. He was then prescribed Glimepiride, but he does not take this because he did not feel that this improved his glucose at all. He currently is not taking any medications for diabetes at this time. -A1c is 11%. -Change Lantus to 20 units BID, Lispro 10 units TID with meals and SSI coverage. -Will need diabetic/insulin teaching prior to discharge. Will also need to make sure his [place] pharmacy will cover the insulin appropriately. Qualifiers: Diabetes mellitus type: type 2 Glycemic state: with hyperglycemia Qualified Code(s): E11.65 - Type 2 diabetes mellitus with hyperglycemia (6) Alcohol use disorder Impression: He drinks heavily at home and usually has a fifth of whiskey per day. -Received IV thiamine in the ED. Continue multivitamin with and PO thiamine. -Continue Librium 25 mg TID (started on admission). More tachycardic today, but does not have other signs of alcohol withdrawal. -Monitor for other signs of withdrawal and order CIWA if they develop. (7) Hypertension Impression: He is not taking any medications for this currently. -Started lisinopril 10 mg daily 02/02, but held 02/03 due to OR. Will avoid this today given new SERENA. -Can start Toprol XL 25 mg. -Can have as needed hydralazine if the blood pressure increases significantly. (8) Peripheral neuropathy Impression: He has diabetic peripheral neuropathy in both of his lower extremities. -Continue home gabapentin. (9) BPH (benign prostatic hyperplasia) Impression: He does not take any medication for this at this time. -Monitor for signs/symptoms of urinary retention. (10) Tobacco use disorder Impression: Counseled on smoking cessation. -Continue Nicotine patch.
[2024-02-05] MEDS ORDERED: lisinopriL 20 MG TABLET PO SCH (09:00)
[2024-02-05] MEDS: INSULIN LISPRO 300 UNIT/3 ML PEN SUBQ SCH (09:04)
[2024-02-05] MEDS: INSULIN GLARGINE-YFGN 300 UNIT/3 ML PEN SUBQ SCH (09:05)
[2024-02-05] MEDS: PRENATAL VITAMIN TABLET PO SCH (09:05)
[2024-02-05] MEDS: SODIUM CHLORIDE 0.9% 1,000 ML IV ONE (09:16)
[2024-02-05] MEDS: ACETAMINOPHEN 325 MG TABLET PO PRN (13:42)
[2024-02-05] MEDS: SODIUM CHLORIDE 0.9% 1,000 ML IV SCH (14:51)
[2024-02-06] MEDS: VANCOMYCIN INJ 1 GM, VANCOMYCIN INJ 250 MG in SODIUM CHLORIDE 0.9% 250 ML IV SCH (02:48)
[2024-02-06 06:11] LABS: BASOPHILS # (AUTO) 0.1 10^3/uL (0.0-0.1); BASOPHILS % (AUTO) 1.1 %; EOSINOPHILS # (AUTO) 0.5 10^3/uL (0.0-0.7); EOSINOPHILS % (AUTO) 4.4 %; HCT - HEMATOCRIT 34.6 % (42.0-52.0); HGB - HEMOGLOBIN 11.2 g/dL (14.0-18.0); LYMPHOCYTES # (AUTO) 2.2 10^3/uL (1.5-3.5); LYMPHOCYTES % (AUTO) 20.8 %; MEAN CORPUSCULAR HEMOGLOBIN 32.6 pg (27.0-31.0); MEAN CORPUSCULAR HGB CONC 32.4 g/dL (32.0-36.0); MEAN CORPUSCULAR VOLUME 100.6 fL (80.0-94.0); MEAN PLATELET VOLUME 8.9 fL (7.4-11.4); MONOCYTES # (AUTO) 1.1 10^3/uL (0.0-1.0); MONOCYTES % (AUTO) 10.8 %; NEUTROPHILS # (AUTO) 6.4 10^3/uL (1.5-6.6); NEUTROPHILS % (AUTO) 62.1 %; PLT - PLATELET COUNT 248 10^3/uL (130-450); RED BLOOD COUNT 3.44 10^6/uL (4.70-6.10); RED CELL DISTRIBUTION WIDTH 12.1 % (12.0-15.0); WHITE BLOOD COUNT 10.4 x10^3/uL (4.8-10.8)
[2024-02-06 06:26] LABS: CALCIUM 8.5 mg/dL (8.5-10.3); CREATININE 2.2 mg/dL (0.6-1.3); POTASSIUM 3.6 mmol/L (3.5-4.5)
--- NOTE | 2024-02-06 07:19 | PROVIDER PROGRESS NOTE ---
Subjective - Prog Note Date Prog Note Date: 02/06/24 Prog Note Time: 07:18 - Subjective Pt reports feeling: Improved Subjective: Patient reports feeling cold this morning. Denies having any hallucinations, tremors, nausea, diaphoresis or anxiety. He was febrile yesterday and repeat blood cultures were obtained given his bacteremia from admission. He reports that the pain in his foot is adequately controlled at this time. Denies having any chest pain, dyspnea, cough, vomiting or diarrhea. Objective - Vital Signs/Intake & Output Vital Signs: Vital Signs x48h Temp Pulse Resp BP Pulse Ox 02/06/24 05:30 119/87 H 02/06/24 04:00 36.6 C 101 H 20 150/100 H 97 02/06/24 00:00 36.7 C 91 18 133/89 H 99 Intake & Output: Intake & Output 02/03/24 02/04/24 02/05/24 02/06/24 23:59 23:59 23:59 23:59 Intake Total 3320.000 2580 4748.25 2100 Output Total 675 Balance 3320.000 2580 4073.25 2100 - Objective General Appearance: positive: Alert, Other (Appears ill but no acute distress) Eyes Bilateral: positive: Normal inspection, PERRL, EOMI ENT: positive: ENT inspection nml, Pharynx nml, No signs of dehydration Neck: positive: Nml inspection, Thyroid nml, No JVD, Trachea midline Respiratory: positive: No respiratory distress, Breath sounds nml. negative: Wheezes, Rales, Rhonchi Cardiovascular: positive: No murmur, No gallop, Tachycardia Abdomen: positive: Non-tender, No organomegaly, Nml bowel sounds, No distention Back: positive: Nml inspection Skin: positive: Color nml, No rash, Warm, Dry Extremities: positive: Other (Right foot in surgical dressing. Toes are warm and well perfused.) Neurologic/Psychiatric: positive: Oriented x3, CN's nml (2-12), Motor nml, Sensation nml - Lab Results Fish Bones: 02/06/24 04:45 02/06/24 04:45 Other Labs: Lab Results x24hrs 02/06/24 02/06/24 02/06/24 Range/Units 04:45 04:45 04:45 WBC 10.4 (4.8-10.8) x10^3/uL RBC 3.44 L (4.70-6.10) 10^6/uL Hgb 11.2 L (14.0-18.0) g/dL Hct 34.6 L (42.0-52.0) % MCV 100.6 H (80.0-94.0) fL MCH 32.6 H (27.0-31.0) pg MCHC 32.4 (32.0-36.0) g/dL RDW 12.1 (12.0-15.0) % Plt Count 248 (130-450) 10^3/uL MPV 8.9 (7.4-11.4) fL Neut # (Auto) 6.4 (1.5-6.6) 10^3/uL Lymph # (Auto) 2.2 (1.5-3.5) 10^3/uL Gage # (Auto) 1.1 H (0.0-1.0) 10^3/uL Eos # (Auto) 0.5 (0.0-0.7) 10^3/uL Baso # (Auto) 0.1 (0.0-0.1) 10^3/uL Absolute Nucleated RBC 0.00 x10^3/uL Nucleated RBC % 0.0 /100WBC Sodium 133 L (135-145) mmol/L Potassium 3.6 (3.5-4.5) mmol/L Chloride 102 (101-111) mmol/L Carbon Dioxide 25 (21-32) mmol/L Anion Gap 6.0 (6-13) BUN 27 H (6-20) mg/dL Creatinine 2.2 H (0.6-1.3) mg/dL Estimated GFR (MDRD) 31 L (>89) Glucose 251 H (74-104) mg/dL POC Whole Bld Glucose (70 - 100) mg/dL Calcium 8.5 (8.5-10.3) mg/dL C-Reactive Protein 19.4 H (<0.5) mg/dL 02/05/24 02/05/24 02/05/24 Range/Units 20:40 16:48 11:36 WBC (4.8-10.8) x10^3/uL RBC (4.70-6.10) 10^6/uL Hgb (14.0-18.0) g/dL Hct (42.0-52.0) % MCV (80.0-94.0) fL MCH (27.0-31.0) pg MCHC (32.0-36.0) g/dL RDW (12.0-15.0) % Plt Count (130-450) 10^3/uL MPV (7.4-11.4) fL Neut # (Auto) (1.5-6.6) 10^3/uL Lymph # (Auto) (1.5-3.5) 10^3/uL Gage # (Auto) (0.0-1.0) 10^3/uL Eos # (Auto) (0.0-0.7) 10^3/uL Baso # (Auto) (0.0-0.1) 10^3/uL Absolute Nucleated RBC x10^3/uL Nucleated RBC % /100WBC Sodium (135-145) mmol/L Potassium (3.5-4.5) mmol/L Chloride (101-111) mmol/L Carbon Dioxide (21-32) mmol/L Anion Gap (6-13) BUN (6-20) mg/dL Creatinine (0.6-1.3) mg/dL Estimated GFR (MDRD) (>89) Glucose (74-104) mg/dL POC Whole Bld Glucose 172 H 100 195 H (70 - 100) mg/dL Calcium (8.5-10.3) mg/dL C-Reactive Protein (<0.5) mg/dL 02/05/24 Range/Units 07:53 WBC (4.8-10.8) x10^3/uL RBC (4.70-6.10) 10^6/uL Hgb (14.0-18.0) g/dL Hct (42.0-52.0) % MCV (80.0-94.0) fL MCH (27.0-31.0) pg MCHC (32.0-36.0) g/dL RDW (12.0-15.0) % Plt Count (130-450) 10^3/uL MPV (7.4-11.4) fL Neut # (Auto) (1.5-6.6) 10^3/uL Lymph # (Auto) (1.5-3.5) 10^3/uL Gage # (Auto) (0.0-1.0) 10^3/uL Eos # (Auto) (0.0-0.7) 10^3/uL Baso # (Auto) (0.0-0.1) 10^3/uL Absolute Nucleated RBC x10^3/uL Nucleated RBC % /100WBC Sodium (135-145) mmol/L Potassium (3.5-4.5) mmol/L Chloride (101-111) mmol/L Carbon Dioxide (21-32) mmol/L Anion Gap (6-13) BUN (6-20) mg/dL Creatinine (0.6-1.3) mg/dL Estimated GFR (MDRD) (>89) Glucose (74-104) mg/dL POC Whole Bld Glucose 311 H (70 - 100) mg/dL Calcium (8.5-10.3) mg/dL C-Reactive Protein (<0.5) mg/dL - Diagnostic Imaging Diagnostic Imaging Comments: Foot X-ray: No plain film evidence of osteomyelitis. Right Foot MRI: 1. No MRI evidence of osteomyelitis at this time. 2. Scattered osteoarthrosis at the intertarsal and cuneiform metatarsal articulations, which can be seen in the setting of neuropathic arthropathy. 3. Lobulated 5.2 cm fluid collection along the fourth metatarsophalangeal articulation. While this collection may represent an adventitial bursa, consider the possibility of an underlying fungal or atypical bacterial (Nocardia, Actinomyces) infection. Sepsis Event Note (H) - Evaluation Current Stage of Sepsis: Resolved Possible source of Sepsis: positive: Skin/soft tissue Assessment/Plan - Problem List (1) Diabetic infection of right foot Impression: He reports having a right foot wound ever since a bunion developed on the right lateral aspect of his foot approximately four months ago. It has been pr ogressively worsening since then and in the past month it has become more of an open ulcer. Over the past week it has been erythematous and more painful, and he was prescribed Keflex on 02/27. The infection seemed to progress despite this and he was prescribed Bactrim 2 days ago and his symptoms continued to worsen. -MRI of the right foot is negative for osteomyelitis, but does show a fluid north ection. -Blood cultures with Staph epidermidis (Methicillin-resistant). Outpatient wound culture growing MSSA. -Continue IV vancomycin and Zosyn. Can de-escalate once we see intra-operative cultures. -Orthopedic Surgery (Dr. John Saxena) consulted, appreciate assistance. Underwent I&D on 02/04/24. Operative wound cultures, anaerobic and fungal cultures all pending. -Arterial duplex of right leg still pending; preliminary read indicates occluded SFA with reconstitution distally via collaterals. (2) Bacteremia due to Staphylococcus epidermidis Impression: His blood culture from admission is growing gram-positive cocci in clusters with a PCR panel that is showing Staphylococcus epidermidis that carries the methicillin-resistant gene. -Continue contact precautions. -Continue IV vancomycin and Zosyn for the time being. Await official culture data and sensitivities. -Repeat blood cultures 02/05/24 pending. -While typically staphylococcus epidermidis is a contaminant, this very well could be pathogenic given his diabetic foot infection with open ulce ration/wound. (3) Sepsis Impression: He met criteria for sepsis due to elevated white blood cell count along with tachycardia in the setting of a right diabetic foot infection. He does not meet criteria for severe sepsis. -Lactic acid is normal. Blood cultures positive as noted above. -Continue IV antibiotics as noted above. -Sepsis had resolved, but yesterday he redeveloped a fever and tachycardia. Appears better today, though minimally tachycardic (?infectious related vs mild alcohol withdrawal?). Qualifiers: Sepsis acute organ dysfunction status: without acute organ dysfunction (4) SERENA (acute kidney injury) Impression: His creatinine was normal on presentation but has been slowly increasing every day. Today it jumped from 1.0 to 1.7. This could be a combination of PAPA ind uced SERENA with contribution from vancomycin induced SERENA versus prerenal causes from sepsis/infection. -Discontinued lisinopril (last/first dose was 02/02). Pharmacy to monitor vancomycin trough levels and adjust vancomycin dosing as indicated. -Received 1 liter NS bolus plus 1 liter IV fluids over 8 hours on 02/04. Will give an additional 1 liter NS today over 8 hours. Creatinine is worse today. -Check renal ultrasound, CK, urine studies to calculate FENa. -Avoid unnecessary nephrotoxins and repeat BMP tomorrow. (5) Uncontrolled diabetes mellitus Impression: He has been prescribed metformin previously but had diarrhea with this. He was then prescribed Glimepiride, but he does not take this because he did not feel that this improved his glucose at all. He currently is not taking any medications for diabetes at this time. -A1c is 11%. -Continue Lantus 20 units BID, Lispro 10 units TID with meals and SSI coverage. Adjust further if needed. Will need to be discharged on insulin therapy. -Will need diabetic/insulin teaching prior to discharge. Will also need to make sure his [place] pharmacy will cover the insulin appropriately. Qualifiers: Diabetes mellitus type: type 2 Glycemic state: with hyperglycemia Qualified Code(s): E11.65 - Type 2 diabetes mellitus with hyperglycemia (6) Alcohol use disorder Impression: He drinks heavily at home and usually has a fifth of whiskey per day. -Received IV thiamine in the ED. Continue multivitamin with and PO thiamine. -Continue Librium 25 mg TID (started on admission). Consider decreasing dose to BID tomorrow if no alcohol withdrawal. -Monitor for other signs of withdrawal and order CIWA if they develop. (7) Hypertension Impression: He is not taking any medications for this currently. -Started lisinopril 10 mg daily 02/02, but held 02/03 due to OR. Discontinued due to SERENA but only received one dose on 02/02. -Can have as needed hydralazine if the blood pressure increases significantly. (8) Peripheral neuropathy Impression: He has diabetic peripheral neuropathy in both of his lower extremities. -Continue home gabapentin. (9) BPH (benign prostatic hyperplasia) Impression: He does not take any medication for this at this time. -Monitor for signs/symptoms of urinary retention. -Check renal ultrasound and FENa given SERENA. (10) Tobacco use disorder Impression: Counseled on smoking cessation. -Continue Nicotine patch.
--- NOTE | 2024-02-06 08:16 | PROVIDER PROGRESS NOTE ---
Subjective - Prog Note Date Prog Note Date: 02/06/24 Prog Note Time: 08:00 - Subjective Pt reports feeling: Improved (Pt reports that he is overall feeling better. He states that his right foot pain in imporving however he also has increased his narcotic use. Denies F/C/NS/CP/SOB.) Objective - Vital Signs/Intake & Output Vital Signs: Vital Signs x48h Temp Pulse Resp BP Pulse Ox 02/06/24 05:30 119/87 H 02/06/24 04:00 36.6 C 101 H 20 150/100 H 97 Intake & Output: Intake & Output 02/03/24 02/04/24 02/05/24 02/06/24 23:59 23:59 23:59 23:59 Intake Total 3320.000 2580 4748.25 2100 Output Total 675 Balance 3320.000 2580 4073.25 2100 - Lab Results Fish Bones: 02/06/24 04:45 02/06/24 04:45 Other Labs: Lab Results x24hrs 02/06/24 02/06/24 02/06/24 Range/Units 07:55 04:45 04:45 WBC (4.8-10.8) x10^3/uL RBC (4.70-6.10) 10^6/uL Hgb (14.0-18.0) g/dL Hct (42.0-52.0) % MCV (80.0-94.0) fL MCH (27.0-31.0) pg MCHC (32.0-36.0) g/dL RDW (12.0-15.0) % Plt Count (130-450) 10^3/uL MPV (7.4-11.4) fL Neut # (Auto) (1.5-6.6) 10^3/uL Lymph # (Auto) (1.5-3.5) 10^3/uL [place] # (Auto) (0.0-1.0) 10^3/uL Eos # (Auto) (0.0-0.7) 10^3/uL Baso # (Auto) (0.0-0.1) 10^3/uL Absolute Nucleated RBC x10^3/uL Nucleated RBC % /100WBC Sodium 133 L (135-145) mmol/L Potassium 3.6 (3.5-4.5) mmol/L Chloride 102 (101-111) mmol/L Carbon Dioxide 25 (21-32) mmol/L Anion Gap 6.0 (6-13) BUN 27 H (6-20) mg/dL Creatinine 2.2 H (0.6-1.3) mg/dL Estimated GFR (MDRD) 31 L (>89) Glucose 251 H (74-104) mg/dL POC Whole Bld Glucose 231 H (70 - 100) mg/dL Calcium 8.5 (8.5-10.3) mg/dL C-Reactive Protein 19.4 H (<0.5) mg/dL 02/06/24 02/05/24 02/05/24 Range/Units 04:45 20:40 16:48 WBC 10.4 (4.8-10.8) x10^3/uL RBC 3.44 L (4.70-6.10) 10^6/uL Hgb 11.2 L (14.0-18.0) g/dL Hct 34.6 L (42.0-52.0) % MCV 100.6 H (80.0-94.0) fL MCH 32.6 H (27.0-31.0) pg MCHC 32.4 (32.0-36.0) g/dL RDW 12.1 (12.0-15.0) % Plt Count 248 (130-450) 10^3/uL MPV 8.9 (7.4-11.4) fL Neut # (Auto) 6.4 (1.5-6.6) 10^3/uL Lymph # (Auto) 2.2 (1.5-3.5) 10^3/uL [place] # (Auto) 1.1 H (0.0-1.0) 10^3/uL Eos # (Auto) 0.5 (0.0-0.7) 10^3/uL Baso # (Auto) 0.1 (0.0-0.1) 10^3/uL Absolute Nucleated RBC 0.00 x10^3/uL Nucleated RBC % 0.0 /100WBC Sodium (135-145) mmol/L Potassium (3.5-4.5) mmol/L Chloride (101-111) mmol/L Carbon Dioxide (21-32) mmol/L Anion Gap (6-13) BUN (6-20) mg/dL Creatinine (0.6-1.3) mg/dL Estimated GFR (MDRD) (>89) Glucose (74-104) mg/dL POC Whole Bld Glucose 172 H 100 (70 - 100) mg/dL Calcium (8.5-10.3) mg/dL C-Reactive Protein (<0.5) mg/dL 02/05/24 Range/Units 11:36 WBC (4.8-10.8) x10^3/uL RBC (4.70-6.10) 10^6/uL Hgb (14.0-18.0) g/dL Hct (42.0-52.0) % MCV (80.0-94.0) fL MCH (27.0-31.0) pg MCHC (32.0-36.0) g/dL RDW (12.0-15.0) % Plt Count (130-450) 10^3/uL MPV (7.4-11.4) fL Neut # (Auto) (1.5-6.6) 10^3/uL Lymph # (Auto) (1.5-3.5) 10^3/uL [place] # (Auto) (0.0-1.0) 10^3/uL Eos # (Auto) (0.0-0.7) 10^3/uL Baso # (Auto) (0.0-0.1) 10^3/uL Absolute Nucleated RBC x10^3/uL Nucleated RBC % /100WBC Sodium (135-145) mmol/L Potassium (3.5-4.5) mmol/L Chloride (101-111) mmol/L Carbon Dioxide (21-32) mmol/L Anion Gap (6-13) BUN (6-20) mg/dL Creatinine (0.6-1.3) mg/dL Estimated GFR (MDRD) (>89) Glucose (74-104) mg/dL POC Whole Bld Glucose 195 H (70 - 100) mg/dL Calcium (8.5-10.3) mg/dL C-Reactive Protein (<0.5) mg/dL - Other Results/Comments Other Results/Comments: RIGHT foot: Spint in place - this was removed 3 cm eshar on the dorsum of the foot over the 4th ray Mild erythema about the known lateral foot ulcer and dorsal eschar Sutures in place No active drainage SILT s/s/sp/dp/t however diminished throughout Fires EHL/FHL/TA/GS/PER Slow cap refill to all digits. IMAGING: No New Imaging Sepsis Event Note (H) - Evaluation Current Stage of Sepsis: Resolved Possible source of Sepsis: positive: Skin/soft tissue Assessment/Plan - Problem List (1) Diabetic infection of right foot Impression: 58yo M s/p Right foot I&D for lateral foot ulcer and dorsal foot abscess on 02/04/24. He was admitted for sepsis and was found to have positive blood cultures (methicillin resistant staph epidermis) and his intraopetative right foot cultures had coag-negative staph. Pt reports that he is clinically doing better. He continues to be tachycardic however he has been afebrile. Labs continued to improve with WBC at 10.4 and CRP declined from 29.1 to 19.4. Based on his clinical exam, he does not require a return to the OR day for a repeat wash out. Ortho will continue to monitor. -Cleared to eat (NPO at 0001 on 02/08/24 for potential repeat I&D) -Non-weight bearing Right lower extremity -Strict elevation of right foot higher than his heart -Leave dressing and splint in place -repeat CRP and CBC in the morning of 02/08/24 -Continue IV antibiotics -Follow cultures and sensitivities -DVT prophylaxis per primary team -Will require wound care and wheelchair upon discharge John Saxena MD Ortho [phone] cell
[2024-02-06] MEDS: polyethylene glycoL 3350 17 GM PACKET PO SCH (08:21)
[2024-02-06] MEDS: INSULIN GLARGINE-YFGN 300 UNIT/3 ML PEN SUBQ SCH ×2 (08:25→21:20)
[2024-02-06] MEDS ORDERED: INSULIN GLARGINE-YFGN 300 UNIT/3 ML PEN SUBQ SCH (09:00)
[2024-02-06] MEDS ORDERED: LORazepam 1 MG TABLET PO PRN (10:08)
[2024-02-06] MEDS: SODIUM CHLORIDE 0.9% 1,000 ML IV SCH (10:34)
[2024-02-06] MEDS: SENNA 8.6 MG TABLET PO SCH (10:34)
[2024-02-06] MEDS: chlordiazePOXIDE 25 MG CAPSULE PO SCH (13:06)
[2024-02-06] MEDS: ACETAMINOPHEN 650 MG SUPP PR PRN (13:27)
[2024-02-06 14:21] LABS: CALCIUM 8.6 mg/dL (8.5-10.3); CREATININE 2.5 mg/dL (0.6-1.3); POTASSIUM 3.7 mmol/L (3.5-4.5)
[2024-02-06] MEDS: SODIUM CHLORIDE 0.9% 1,000 ML IV ONE (14:27)
[2024-02-06 16:09] LABS: BILIRUBIN,URINE NEGATIVE (NEGATIVE); GLUCOSE, URINE (UA) NEGATIVE (NEGATIVE); KETONES,URINE (UA) NEGATIVE (NEGATIVE); LEUKOCYTE ESTERASE, URINE NEGATIVE (NEGATIVE); NITRITE,URINE NEGATIVE (NEGATIVE); OCCULT BLOOD,URINE NEGATIVE (NEGATIVE); PH,URINE 5.5 PH (5.0-7.5); PROTEIN,URINE NEGATIVE (NEGATIVE); UROBILINOGEN,URINE 0.2 (NORMAL) E.U./dL (NORMAL)
[2024-02-06 16:13] LABS: CLARITY,URINE HAZY (CLEAR)
[2024-02-06 16:20] LABS: AMORPHOUS SEDIMENT,UR Moderate /LPF; BACTERIA,URINE Moderate /HPF (None Seen); RBC,URINE 0-5 /HPF (0-5); SQUAMOUS EPITHELIAL CELL,UR RARE Squamous (<= Few); WBC,URINE 0-3 /HPF (0-3)
[2024-02-06 16:30] LABS: CREATININE,URINE 119.4 mg/dL; SODIUM, URINE 15.7 mmol/L
[2024-02-06 18:25] LABS: ABG BASE EXCESS -7.1 mmol/L (-2.0-3.0); ABG HCO3 18.9 mmol/L (22.0-26.0); ABG OXYGEN SATURATION 90 % (94-98); ABG PCO2 40 mmHg (34-45); ABG PH 7.29 (7.35-7.45); ABG PO2 62 mmHg (80-100); ABG TCO2 20.2 MMOL/L (21.0-29.0)
[2024-02-06 18:26] LABS: ALLEN TEST POSITIVE
[2024-02-06] MEDS: CIPROFLOXACIN 400 MG/200 ML 400 MG/200 ML BAG IV SCH (20:02)
--- NOTE | 2024-02-06 21:22 | Ultrasound Report ---
PROCEDURE: Renal (Retroperitoneal) INDICATIONS: SERENA, evaluate for hydronephrosis TECHNIQUE: Real-time scanning was performed of the retroperitoneal organs, with image documentation. COMPARISON: None. FINDINGS: Kidneys: Kidneys are normal in size. Right kidney measures 12.2 cm long; left kidney measures 10.3 cm long. Right renal cortical thickness is 1.6 cm; left renal cortical thickness is 2.1 cm. No leon d masses, hydronephrosis, or nephrolithiasis. Left kidney superior pole exophytic hypoechoic cyst natalia suring 2.3 cm. Bladder: Not well seen. Ordonez catheter in place. Miscellaneous: No free abdominal fluid. IMPRESSION: No hydronephrosis. Left kidney superior pole exophytic cysts measuring 2.3 cm. Appears mildly conjugated. This could be further evaluated with renal MRI or CT. Reviewed by: Giovanni Paul MD on 02/06/2024 9:21 PM PDT Approved by: Giovanni Paul MD on 02/06/2024 9:21 PM PDT Station ID: [id number]
[2024-02-07 05:36] LABS: BASOPHILS # (AUTO) 0.1 10^3/uL (0.0-0.1); BASOPHILS % (AUTO) 1.1 %; EOSINOPHILS # (AUTO) 0.3 10^3/uL (0.0-0.7); EOSINOPHILS % (AUTO) 3.6 %; HCT - HEMATOCRIT 32.5 % (42.0-52.0); HGB - HEMOGLOBIN 10.6 g/dL (14.0-18.0); LYMPHOCYTES # (AUTO) 1.8 10^3/uL (1.5-3.5); MEAN CORPUSCULAR HEMOGLOBIN 32.5 pg (27.0-31.0); MEAN CORPUSCULAR HGB CONC 32.6 g/dL (32.0-36.0); MEAN CORPUSCULAR VOLUME 99.7 fL (80.0-94.0); MEAN PLATELET VOLUME 8.8 fL (7.4-11.4); MONOCYTES % (AUTO) 11.7 %; NEUTROPHILS # (AUTO) 5.5 10^3/uL (1.5-6.6); NEUTROPHILS % (AUTO) 62.8 %; PLT - PLATELET COUNT 235 10^3/uL (130-450); RED BLOOD COUNT 3.26 10^6/uL (4.70-6.10); RED CELL DISTRIBUTION WIDTH 12.3 % (12.0-15.0); WHITE BLOOD COUNT 8.8 x10^3/uL (4.8-10.8)
[2024-02-07 05:52] LABS: CREATININE 2.5 mg/dL (0.6-1.3); POTASSIUM 3.4 mmol/L (3.5-4.5)
[2024-02-07] MEDS: SODIUM CHLORIDE FLUSH 0.9% 10 ML SYRINGE IVP PRN (06:49)
--- NOTE | 2024-02-07 07:25 | PROVIDER PROGRESS NOTE ---
Subjective - Prog Note Date Prog Note Date: 02/07/24 Prog Note Time: 07:24 - Subjective Pt reports feeling: Improved Subjective: Yesterday he had fevers to 39 and had worsening mental status, becoming very lethargic. An ABG showed metabolic acidosis without CO2 retention, though was not having a good respiratory compensation. His librium and gabapentin were held, and his antibiotics were changed from Zosyn to Cipro to better cover his infection. Overnight he was placed on his home CPAP, which was then converted to BiPAP at night for JENY reasons. This morning he is much more alert though he remains disoriented to current place and has no recollection of the events from yesterday. Today he denies any significant pain in his right foot. Denies any chest pain, dyspnea, nausea, vomiting, diarrhea, abdominal pain, headaches. Denies any tremors, hallucinations as well. Has been afebrile this morning thus far. Objective - Vital Signs/Intake & Output Reviewed Vital Signs: Yes Vital Signs: Vital Signs x48h Temp Pulse Resp BP Pulse Ox O2 Flow Rate 02/07/24 04:40 36.9 C 100 10 L 132/86 H 95 02/07/24 00:00 89 10 L 110/74 97 3 Intake & Output: Intake & Output 02/04/24 02/05/24 02/06/24 02/07/24 23:59 23:59 23:59 23:59 Intake Total 2580 4748.25 4896.25 1600 Output Total 033 953 9741 Balance 2580 4073.25 4271.25 50 - Objective General Appearance: positive: Other (Alert, appears acutely ill but no active distress.) Eyes Bilateral: positive: Normal inspection, PERRL, EOMI ENT: positive: ENT inspection nml, Pharynx nml, No signs of dehydration Neck: positive: Nml inspection, Thyroid nml, No JVD, Trachea midline Respiratory: positive: No respiratory distress, Breath sounds nml. negative: Wheezes, Rales, Rhonchi Cardiovascular: positive: Regular rate & rhythm, No murmur, No gallop Abdomen: positive: Non-tender, No organomegaly, Other (Distended with increased tympany. Bowel sounds hypoactive.) Skin: positive: No rash, Warm, Diaphoresis Extremities: positive: Other (No peripheral edema. Right foot wrapped in osmani gical dressings. Right toes with cap refill < 2 seconds.) Neurologic/Psychiatric: positive: CN's nml (2-12), Motor nml, Sensation nml, Disoriented to time - Lab Results Fish Bones: 02/07/24 04:33 02/07/24 04:33 Other Labs: Lab Results x24hrs 02/07/24 02/07/24 02/06/24 Range/Units 04:33 04:33 20:51 WBC 8.8 (4.8-10.8) x10^3/uL RBC 3.26 L (4.70-6.10) 10^6/uL Hgb 10.6 L (14.0-18.0) g/dL Hct 32.5 L (42.0-52.0) % MCV 99.7 H (80.0-94.0) fL MCH 32.5 H (27.0-31.0) pg MCHC 32.6 (32.0-36.0) g/dL RDW 12.3 (12.0-15.0) % Plt Count 235 (130-450) 10^3/uL MPV 8.8 (7.4-11.4) fL Neut # (Auto) 5.5 (1.5-6.6) 10^3/uL Lymph # (Auto) 1.8 (1.5-3.5) 10^3/uL [place] # (Auto) 1.0 (0.0-1.0) 10^3/uL Eos # (Auto) 0.3 (0.0-0.7) 10^3/uL Baso # (Auto) 0.1 (0.0-0.1) 10^3/uL Absolute Nucleated RBC 0.00 x10^3/uL Nucleated RBC % 0.0 /100WBC Bld Gas Analysis Time Sample Site ABG pH (7.35-7.45) ABG pCO2 (34-45) mmHg ABG pO2 (80-100) mmHg ABG HCO3 (22.0-26.0) mmol/L ABG Total CO2 (21.0-29.0) MMOL/L ABG O2 Saturation (94-98) % ABG Base Excess (-2.0-3.0) mmol/L Toni Test Room Air Sodium 134 L (135-145) mmol/L Potassium 3.4 L (3.5-4.5) mmol/L Chloride 105 (101-111) mmol/L Carbon Dioxide 23 (21-32) mmol/L Anion Gap 6.0 (6-13) BUN 25 H (6-20) mg/dL Creatinine 2.5 H (0.6-1.3) mg/dL Estimated GFR (MDRD) 26 L (>89) Glucose 163 H (74-104) mg/dL POC Whole Bld Glucose 168 H (70 - 100) mg/dL Lactic Acid (0.5-2.2) mmol/L Calcium 8.0 L (8.5-10.3) mg/dL Ammonia (18-72) umol/L Total Creatine Kinase (30-223) IU/L Urine Color Urine Clarity (CLEAR) Urine pH (5.0-7.5) PH Ur Specific [place] (1.002-1.030) Urine Protein (NEGATIVE) mg/dL Urine Glucose (UA) (NEGATIVE) mg/dL Urine Ketones (NEGATIVE) mg/dL Urine Occult Blood (NEGATIVE) Urine Nitrite (NEGATIVE) Urine Bilirubin (NEGATIVE) Urine Urobilinogen (NORMAL) E.U./dL Ur Leukocyte Esterase (NEGATIVE) Urine RBC (0-5) /HPF Urine WBC (0-3) /HPF Ur Squamous Epith Cells (<= Few) Amorphous Sediment /LPF Urine Bacteria (None Seen) /HPF Urine Culture Comments Urine Creatinine mg/dL Urine Sodium mmol/L 02/06/24 02/06/24 02/06/24 Range/Units 18:16 16:30 15:25 WBC (4.8-10.8) x10^3/uL RBC (4.70-6.10) 10^6/uL Hgb (14.0-18.0) g/dL Hct (42.0-52.0) % MCV (80.0-94.0) fL MCH (27.0-31.0) pg MCHC (32.0-36.0) g/dL RDW (12.0-15.0) % Plt Count (130-450) 10^3/uL MPV (7.4-11.4) fL Neut # (Auto) (1.5-6.6) 10^3/uL Lymph # (Auto) (1.5-3.5) 10^3/uL [place] # (Auto) (0.0-1.0) 10^3/uL Eos # (Auto) (0.0-0.7) 10^3/uL Baso # (Auto) (0.0-0.1) 10^3/uL Absolute Nucleated RBC x10^3/uL Nucleated RBC % /100WBC Bld Gas Analysis Time 1824 Sample Site RIGHT RADIAL ABG pH 7.29 L (7.35-7.45) ABG pCO2 40 (34-45) mmHg ABG pO2 62 L (80-100) mmHg ABG HCO3 18.9 L (22.0-26.0) mmol/L ABG Total CO2 20.2 L (21.0-29.0) MMOL/L ABG O2 Saturation 90 L (94-98) % ABG Base Excess -7.1 L (-2.0-3.0) mmol/L Toni Test POSITIVE Room Air YES Sodium (135-145) mmol/L Potassium (3.5-4.5) mmol/L Chloride (101-111) mmol/L Carbon Dioxide (21-32) mmol/L Anion Gap (6-13) BUN (6-20) mg/dL Creatinine (0.6-1.3) mg/dL Estimated GFR (MDRD) (>89) Glucose (74-104) mg/dL POC Whole Bld Glucose 152 H (70 - 100) mg/dL Lactic Acid (0.5-2.2) mmol/L Calcium (8.5-10.3) mg/dL Ammonia (18-72) umol/L Total Creatine Kinase (30-223) IU/L Urine Color YELLOW Urine Clarity HAZY (CLEAR) Urine pH 5.5 (5.0-7.5) PH Ur Specific [place] 1.015 (1.002-1.030) Urine Protein NEGATIVE (NEGATIVE) mg/dL Urine Glucose (UA) NEGATIVE (NEGATIVE) mg/dL Urine Ketones NEGATIVE (NEGATIVE) mg/dL Urine Occult Blood NEGATIVE (NEGATIVE) Urine Nitrite NEGATIVE (NEGATIVE) Urine Bilirubin NEGATIVE (NEGATIVE) Urine Urobilinogen 0.2 (NORMAL) (NORMAL) E.U./dL Ur Leukocyte Esterase NEGATIVE (NEGATIVE) Urine RBC 0-5 (0-5) /HPF Urine WBC 0-3 (0-3) /HPF Ur Squamous Epith Cells RARE Squamous (<= Few) Amorphous Sediment Moderate /LPF Urine Bacteria Moderate H (None Seen) /HPF Urine Culture Comments NOT INDICATED Urine Creatinine mg/dL Urine Sodium mmol/L 02/06/24 02/06/24 02/06/24 Range/Units 15:25 13:56 13:56 WBC (4.8-10.8) x10^3/uL RBC (4.70-6.10) 10^6/uL Hgb (14.0-18.0) g/dL Hct (42.0-52.0) % MCV (80.0-94.0) fL MCH (27.0-31.0) pg MCHC (32.0-36.0) g/dL RDW (12.0-15.0) % Plt Count (130-450) 10^3/uL MPV (7.4-11.4) fL Neut # (Auto) (1.5-6.6) 10^3/uL Lymph # (Auto) (1.5-3.5) 10^3/uL [place] # (Auto) (0.0-1.0) 10^3/uL Eos # (Auto) (0.0-0.7) 10^3/uL Baso # (Auto) (0.0-0.1) 10^3/uL Absolute Nucleated RBC x10^3/uL Nucleated RBC % /100WBC Bld Gas Analysis Time Sample Site ABG pH (7.35-7.45) ABG pCO2 (34-45) mmHg ABG pO2 (80-100) mmHg ABG HCO3 (22.0-26.0) mmol/L ABG Total CO2 (21.0-29.0) MMOL/L ABG O2 Saturation (94-98) % ABG Base Excess (-2.0-3.0) mmol/L Toni Test Room Air Sodium (135-145) mmol/L Potassium (3.5-4.5) mmol/L Chloride (101-111) mmol/L Carbon Dioxide (21-32) mmol/L Anion Gap (6-13) BUN (6-20) mg/dL Creatinine (0.6-1.3) mg/dL Estimated GFR (MDRD) (>89) Glucose (74-104) mg/dL POC Whole Bld Glucose (70 - 100) mg/dL Lactic Acid 0.9 (0.5-2.2) mmol/L Calcium (8.5-10.3) mg/dL Ammonia 27.5 (18-72) umol/L Total Creatine Kinase (30-223) IU/L Urine Color Urine Clarity (CLEAR) Urine pH (5.0-7.5) PH Ur Specific [place] (1.002-1.030) Urine Protein (NEGATIVE) mg/dL Urine Glucose (UA) (NEGATIVE) mg/dL Urine Ketones (NEGATIVE) mg/dL Urine Occult Blood (NEGATIVE) Urine Nitrite (NEGATIVE) Urine Bilirubin (NEGATIVE) Urine Urobilinogen (NORMAL) E.U./dL Ur Leukocyte Esterase (NEGATIVE) Urine RBC (0-5) /HPF Urine WBC (0-3) /HPF Ur Squamous Epith Cells (<= Few) Amorphous Sediment /LPF Urine Bacteria (None Seen) /HPF Urine Culture Comments Urine Creatinine 119.4 mg/dL Urine Sodium 15.7 mmol/L 02/06/24 02/06/24 02/06/24 Range/Units 13:56 11:32 07:55 WBC (4.8-10.8) x10^3/uL RBC (4.70-6.10) 10^6/uL Hgb (14.0-18.0) g/dL Hct (42.0-52.0) % MCV (80.0-94.0) fL MCH (27.0-31.0) pg MCHC (32.0-36.0) g/dL RDW (12.0-15.0) % Plt Count (130-450) 10^3/uL MPV (7.4-11.4) fL Neut # (Auto) (1.5-6.6) 10^3/uL Lymph # (Auto) (1.5-3.5) 10^3/uL [place] # (Auto) (0.0-1.0) 10^3/uL Eos # (Auto) (0.0-0.7) 10^3/uL Baso # (Auto) (0.0-0.1) 10^3/uL Absolute Nucleated RBC x10^3/uL Nucleated RBC % /100WBC Bld Gas Analysis Time Sample Site ABG pH (7.35-7.45) ABG pCO2 (34-45) mmHg ABG pO2 (80-100) mmHg ABG HCO3 (22.0-26.0) mmol/L ABG Total CO2 (21.0-29.0) MMOL/L ABG O2 Saturation (94-98) % ABG Base Excess (-2.0-3.0) mmol/L Toni Test Room Air Sodium 134 L (135-145) mmol/L Potassium 3.7 (3.5-4.5) mmol/L Chloride 104 (101-111) mmol/L Carbon Dioxide 23 (21-32) mmol/L Anion Gap 7.0 (6-13) BUN 26 H (6-20) mg/dL Creatinine 2.5 H (0.6-1.3) mg/dL Estimated GFR (MDRD) 26 L (>89) Glucose 228 H (74-104) mg/dL POC Whole Bld Glucose 227 H 231 H (70 - 100) mg/dL Lactic Acid (0.5-2.2) mmol/L Calcium 8.6 (8.5-10.3) mg/dL Ammonia (18-72) umol/L Total Creatine Kinase (30-223) IU/L Urine Color Urine Clarity (CLEAR) Urine pH (5.0-7.5) PH Ur Specific [place] (1.002-1.030) Urine Protein (NEGATIVE) mg/dL Urine Glucose (UA) (NEGATIVE) mg/dL Urine Ketones (NEGATIVE) mg/dL Urine Occult Blood (NEGATIVE) Urine Nitrite (NEGATIVE) Urine Bilirubin (NEGATIVE) Urine Urobilinogen (NORMAL) E.U./dL Ur Leukocyte Esterase (NEGATIVE) Urine RBC (0-5) /HPF Urine WBC (0-3) /HPF Ur Squamous Epith Cells (<= Few) Amorphous Sediment /LPF Urine Bacteria (None Seen) /HPF Urine Culture Comments Urine Creatinine mg/dL Urine Sodium mmol/L 02/06/24 Range/Units 04:45 WBC (4.8-10.8) x10^3/uL RBC (4.70-6.10) 10^6/uL Hgb (14.0-18.0) g/dL Hct (42.0-52.0) % MCV (80.0-94.0) fL MCH (27.0-31.0) pg MCHC (32.0-36.0) g/dL RDW (12.0-15.0) % Plt Count (130-450) 10^3/uL MPV (7.4-11.4) fL Neut # (Auto) (1.5-6.6) 10^3/uL Lymph # (Auto) (1.5-3.5) 10^3/uL [place] # (Auto) (0.0-1.0) 10^3/uL Eos # (Auto) (0.0-0.7) 10^3/uL Baso # (Auto) (0.0-0.1) 10^3/uL Absolute Nucleated RBC x10^3/uL Nucleated RBC % /100WBC Bld Gas Analysis Time Sample Site ABG pH (7.35-7.45) ABG pCO2 (34-45) mmHg ABG pO2 (80-100) mmHg ABG HCO3 (22.0-26.0) mmol/L ABG Total CO2 (21.0-29.0) MMOL/L ABG O2 Saturation (94-98) % ABG Base Excess (-2.0-3.0) mmol/L Toni Test Room Air Sodium (135-145) mmol/L Potassium (3.5-4.5) mmol/L Chloride (101-111) mmol/L Carbon Dioxide (21-32) mmol/L Anion Gap (6-13) BUN (6-20) mg/dL Creatinine (0.6-1.3) mg/dL Estimated GFR (MDRD) (>89) Glucose (74-104) mg/dL POC Whole Bld Glucose (70 - 100) mg/dL Lactic Acid (0.5-2.2) mmol/L Calcium (8.5-10.3) mg/dL Ammonia (18-72) umol/L Total Creatine Kinase 77 (30-223) IU/L Urine Color Urine Clarity (CLEAR) Urine pH (5.0-7.5) PH Ur Specific [place] (1.002-1.030) Urine Protein (NEGATIVE) mg/dL Urine Glucose (UA) (NEGATIVE) mg/dL Urine Ketones (NEGATIVE) mg/dL Urine Occult Blood (NEGATIVE) Urine Nitrite (NEGATIVE) Urine Bilirubin (NEGATIVE) Urine Urobilinogen (NORMAL) E.U./dL Ur Leukocyte Esterase (NEGATIVE) Urine RBC (0-5) /HPF Urine WBC (0-3) /HPF Ur Squamous Epith Cells (<= Few) Amorphous Sediment /LPF Urine Bacteria (None Seen) /HPF Urine Culture Comments Urine Creatinine mg/dL Urine Sodium mmol/L - Diagnostic Imaging Diagnostic Imaging Comments: Foot X-ray: No plain film evidence of osteomyelitis. Right Foot MRI: 1. No MRI evidence of osteomyelitis at this time. 2. Scattered osteoarthrosis at the intertarsal and cuneiform metatarsal articulations, which can be seen in the setting of neuropathic arthropathy. 3. Lobulated 5.2 cm fluid collection along the fourth metatarsophalangeal articulation. While this collection may represent an adventitial bursa, consider the possibility of an underlying fungal or atypical bacterial (Nocardia, Actinomyces) infection. Arterial Duplex: Official read still pending Renal Ultrasound: 1. No hydronephrosis 2. Left kidney superior pole exophytic cyst measuring 2.3 cm. Appears mildly conjugated. This could be further evaluated with renal MRI or CT. Sepsis Event Note (H) - Evaluation Possible source of Sepsis: positive: Skin/soft tissue Assessment/Plan - Problem List (1) Diabetic infection of right foot Impression: He reports having a right foot wound ever since a bunion developed on the right lateral aspect of his foot approximately four months ago. It has been progressively worsening since then and in the past month it has become more of an open ulcer. Over the past week it has been erythematous and more painful, and he was prescribed Keflex on 02/27. The infection seemed to progress despite this and he was prescribed Bactrim 2 days ago and his symptoms continued to worsen. -MRI of the right foot is negative for osteomyelitis, but did show a fluid collection. -Blood cultures with Staph epidermidis (Methicillin-resistant/beta-lactamase positive). Outpatient wound culture growing MSSA. Operative wound culture growing Staph epidermidis. Operative anaerobic and fungal cultures pending. -Continue IV vancomycin. Originally on Zosyn, but changed to Ciprofloxacin on 02/06/24 given continued fevers as this will cover gram negatives as well as better cover staph epidermidis. -Orthopedic Surgery (Dr. John Saxena) consulted, appreciate assistance. Underwent I&D on 02/04/24. Will re-evaluate 02/07 to ensure he does not require repeat I&D. -Arterial duplex of right leg still pending; preliminary biodiesel processing technician read indicates occluded SFA with reconstitution distally via collaterals. Awaiting official read prior to initiating therapy. (2) Bacteremia due to Staphylococcus epidermidis Impression: His blood culture from admission is growing gram-positive cocci in clusters with a PCR panel that is showing Staphylococcus epidermidis that carries the methicillin-resistant gene. -Continue contact precautions. -On IV vancomycin since admission. Switched Zosyn to Cipro 02/06/24 due to ongoing sepsis/fevers as Cipro can cover bacteremia better. -Repeat blood cultures 02/05/24 NGTD thus far. -Appears to be a true pathogenic staph epidermidis bacteremia as his operative foot cultures are growing the same bacteria. (3) Sepsis Impression: He met criteria for sepsis due to elevated white blood cell count along with tachycardia in the setting of a right diabetic foot infection. -Lactic acid is normal on presentation. On 02/06/24 he developed significant fevers, tachycardia and mild hypotension. Repeat lactic acid was negative, though he would meet criteria for severe sepsis on 02/06/24 due to confusion and SERENA. -Continue IV antibiotics as noted above. -Received several liters of IV fluids yesterday. Will place on continuous LR IV fluids today. Qualifiers: Sepsis acute organ dysfunction status: without acute organ dysfunction (4) SERENA (acute kidney injury) Impression: His creatinine was normal on presentation but has been slowly increasing every day. Today it jumped from 1.0 to 1.7. This could be a combination of PAPA induced SERENA with contribution from vancomycin induced SERENA versus prerenal causes from sepsis/infection. -Discontinued lisinopril (last/first dose was 02/02). Pharmacy to monitor vancomycin trough levels and adjust vancomycin dosing as indicated. -Received 1 liter NS bolus plus 1 liter IV fluids over 8 hours on 02/04. Received another 2 liters on 02/05. -Renal ultrasound showed no hydronephrosis. FENA is 0.25% indicating pre-renal causes, likely from sepsis. CK normal. -Place on IV fluids (LR at 125 cc/hr). -Avoid unnecessary nephrotoxins and repeat BMP tomorrow. (5) Uncontrolled diabetes mellitus Impression: He has been prescribed metformin previously but had diarrhea with this. He was then prescribed Glimepiride, but he does not take this because he did not feel that this improved his glucose at all. He currently is not taking any medications for diabetes at this time. -A1c is 11%. -Continue Lantus (switched to 10 units BID due to poor PO intake in past 24 hours), Lispro 10 units TID with meals and SSI coverage. Adjust further if needed. -Will need to be discharged on insulin therapy. Will need diabetic/insulin teaching prior to discharge. Will also need to make sure his [place] pharmacy will cover the insulin appropriately. Qualifiers: Diabetes mellitus type: type 2 Glycemic state: with hyperglycemia Qualified Code(s): E11.65 - Type 2 diabetes mellitus with hyperglycemia (6) Alcohol use disorder Impression: He drinks heavily at home and usually has a fifth of whiskey per day. -Received IV thiamine in the ED. Continue multivitamin with and PO thiamine. -Had been on Librium 25 mg TID since admission, but held this starting 02/06/24 due to lethargic status in the setting of sepsis and SERENA. Part of his lethargy was likely Gabapentin retention due to SERENA as well. -Monitor for other signs of withdrawal and order CIWA if they develop. (7) Renal mass Impression: Renal ultrasound shows a 2.3 cm exophytic cyst in the left superior pole of the kidney. -Encourage outpatient follow up with renal mass protocol CT vs MRI. Avoiding those at this time due to SERENA and other acute illnesses. (8) Hypertension Impression: He is not taking any medications for this currently. -Started lisinopril 10 mg daily 02/02, but held 02/03 due to OR. Discontinued due to SEERNA but only received one dose on 02/02. -Can have as needed hydralazine if the blood pressure increases significantly. (9) Peripheral neuropathy Impression: He has diabetic peripheral neuropathy in both of his lower extremities. -Holding home Gabapentin 300 mg QID due to lethargy and SERENA. (10) BPH (benign prostatic hyperplasia) Impression: He does not take any medication for this at this time. -Monitor for signs/symptoms of urinary retention. -Renal ultrasound shows no hydronephrosis or retention. (11) Tobacco use disorder Impression: Counseled on smoking cessation. -Continue Nicotine patch.
[2024-02-07] MEDS: POTASSIUM CHLORIDE 20 MEQ TABLET PO ONE (08:22)
[2024-02-07] MEDS: LACTATED RINGERS 1,000 ML IV SCH (08:35)
--- NOTE | 2024-02-07 20:41 | Ultrasound Report ---
PROCEDURE: Arterial Duplex Lwr Ext RT INDICATIONS: Diabetic foot wound, evaluate for PAD TECHNIQUE: Color and pulse Doppler interrogation was performed of the right lower extremity arterial system, wit h image documentation. COMPARISON: None FINDINGS: Common femoral artery: 155 cm/sec, with triphasic flow. Deep femoral artery: 90 cm/sec, with monophasic flow. Proximal superficial femoral artery: Occluded Mid superficial femoral artery: Occluded Distal superficial femoral artery: Occluded Popliteal artery: Occluded. Posterior tibial artery: 56 cm/sec, with monophasic flow. Anterior tibial artery/dorsalis pedis: 6 cm/sec, with monophasic flow. Turner-scale imaging description: Long segment occlusion of the SFA just beyond its origin throughout the right thigh including occlusion of the popliteal artery. Associated heavily calcified plaque thro ughout the SFA. IMPRESSION: Long segment occlusion of right SFA and popliteal artery with distal reconstitution of the tibial art eries. Reviewed by: Toni Rosales MD on 02/03/2024 3:31 PM PDT Approved by: Toni Rosales MD on 02/03/2024 3:31 PM PDT Station ID: [id number]
[2024-02-08 02:08] LABS: VANCOMYCIN,TROUGH 19.8 ug/mL
[2024-02-08 06:06] LABS: BASOPHILS # (AUTO) 0.1 10^3/uL (0.0-0.1); BASOPHILS % (AUTO) 0.9 %; EOSINOPHILS # (AUTO) 0.4 10^3/uL (0.0-0.7); EOSINOPHILS % (AUTO) 4.3 %; HCT - HEMATOCRIT 32.8 % (42.0-52.0); HGB - HEMOGLOBIN 10.3 g/dL (14.0-18.0); LYMPHOCYTES # (AUTO) 1.4 10^3/uL (1.5-3.5); LYMPHOCYTES % (AUTO) 16.4 %; MEAN CORPUSCULAR HEMOGLOBIN 31.5 pg (27.0-31.0); MEAN CORPUSCULAR HGB CONC 31.4 g/dL (32.0-36.0); MEAN CORPUSCULAR VOLUME 100.3 fL (80.0-94.0); MEAN PLATELET VOLUME 8.8 fL (7.4-11.4); MONOCYTES # (AUTO) 1.1 10^3/uL (0.0-1.0); MONOCYTES % (AUTO) 13.3 %; NEUTROPHILS # (AUTO) 5.3 10^3/uL (1.5-6.6); NEUTROPHILS % (AUTO) 64.2 %; PLT - PLATELET COUNT 287 10^3/uL (130-450); RED BLOOD COUNT 3.27 10^6/uL (4.70-6.10); RED CELL DISTRIBUTION WIDTH 12.4 % (12.0-15.0); WHITE BLOOD COUNT 8.2 x10^3/uL (4.8-10.8)
[2024-02-08 06:24] LABS: CALCIUM 8.6 mg/dL (8.5-10.3); CREATININE 1.9 mg/dL (0.6-1.3); POTASSIUM 4.1 mmol/L (3.5-4.5)
--- NOTE | 2024-02-08 08:16 | PROVIDER PROGRESS NOTE ---
Subjective - Prog Note Date Prog Note Date: 02/08/24 Prog Note Time: 08:00 - Subjective Pt reports feeling: No change (Patient reports that he is feeling tired today. Denies right foot pain. Denies F/C/NS/CP/SOB.) Objective - Vital Signs/Intake & Output Vital Signs: Vital Signs x48h Temp Pulse Resp BP Pulse Ox O2 Flow Rate 02/08/24 00:24 36.7 C 107 H 14 140/88 H 99 2 Intake & Output: Intake & Output 02/05/24 02/06/24 02/07/24 02/08/24 23:59 23:59 23:59 23:59 Intake Total 4748.25 4896.25 5521.667 535.417 Output Total 277 811 2907 1450 Balance 4073.25 4271.25 1846.667 -914.583 - Lab Results Fish Bones: 02/08/24 05:44 02/08/24 05:44 Other Labs: Lab Results x24hrs 02/08/24 02/08/24 02/08/24 Range/Units 05:44 05:44 05:44 WBC (4.8-10.8) x10^3/uL RBC (4.70-6.10) 10^6/uL Hgb (14.0-18.0) g/dL Hct (42.0-52.0) % MCV (80.0-94.0) fL MCH (27.0-31.0) pg MCHC (32.0-36.0) g/dL RDW (12.0-15.0) % Plt Count (130-450) 10^3/uL MPV (7.4-11.4) fL Neut # (Auto) (1.5-6.6) 10^3/uL Lymph # (Auto) (1.5-3.5) 10^3/uL [place] # (Auto) (0.0-1.0) 10^3/uL Eos # (Auto) (0.0-0.7) 10^3/uL Baso # (Auto) (0.0-0.1) 10^3/uL Absolute Nucleated RBC x10^3/uL Nucleated RBC % /100WBC Sodium (135-145) mmol/L Potassium (3.5-4.5) mmol/L Chloride (101-111) mmol/L Carbon Dioxide (21-32) mmol/L Anion Gap (6-13) BUN (6-20) mg/dL Creatinine (0.6-1.3) mg/dL Estimated GFR (MDRD) (>89) Glucose (74-104) mg/dL POC Whole Bld Glucose (70 - 100) mg/dL Calcium (8.5-10.3) mg/dL C-Reactive Protein 17.4 H (<0.5) mg/dL C-React Prot High Sens > 800.00 mg/L Last Dose Date 02-08-24 Last Dose Time 034 Vancomycin Peak 31.2 (20.0-40.0) ug/mL Vancomycin Trough ug/mL 02/08/24 02/08/24 02/08/24 Range/Units 05:44 05:44 01:44 WBC 8.2 (4.8-10.8) x10^3/uL RBC 3.27 L (4.70-6.10) 10^6/uL Hgb 10.3 L (14.0-18.0) g/dL Hct 32.8 L (42.0-52.0) % MCV 100.3 H (80.0-94.0) fL MCH 31.5 H (27.0-31.0) pg MCHC 31.4 L (32.0-36.0) g/dL RDW 12.4 (12.0-15.0) % Plt Count 287 (130-450) 10^3/uL MPV 8.8 (7.4-11.4) fL Neut # (Auto) 5.3 (1.5-6.6) 10^3/uL Lymph # (Auto) 1.4 L (1.5-3.5) 10^3/uL [place] # (Auto) 1.1 H (0.0-1.0) 10^3/uL Eos # (Auto) 0.4 (0.0-0.7) 10^3/uL Baso # (Auto) 0.1 (0.0-0.1) 10^3/uL Absolute Nucleated RBC 0.00 x10^3/uL Nucleated RBC % 0.0 /100WBC Sodium 133 L (135-145) mmol/L Potassium 4.1 (3.5-4.5) mmol/L Chloride 105 (101-111) mmol/L Carbon Dioxide 22 (21-32) mmol/L Anion Gap 6.0 (6-13) BUN 25 H (6-20) mg/dL Creatinine 1.9 H (0.6-1.3) mg/dL Estimated GFR (MDRD) 36 L (>89) Glucose 258 H (74-104) mg/dL POC Whole Bld Glucose (70 - 100) mg/dL Calcium 8.6 (8.5-10.3) mg/dL C-Reactive Protein (<0.5) mg/dL C-React Prot High Sens mg/L Last Dose Date 02-07-24 Last Dose Time 0200 Vancomycin Peak (20.0-40.0) ug/mL Vancomycin Trough 19.8 ug/mL 02/07/24 02/07/24 02/07/24 Range/Units 20:46 16:49 11:55 WBC (4.8-10.8) x10^3/uL RBC (4.70-6.10) 10^6/uL Hgb (14.0-18.0) g/dL Hct (42.0-52.0) % MCV (80.0-94.0) fL MCH (27.0-31.0) pg MCHC (32.0-36.0) g/dL RDW (12.0-15.0) % Plt Count (130-450) 10^3/uL MPV (7.4-11.4) fL Neut # (Auto) (1.5-6.6) 10^3/uL Lymph # (Auto) (1.5-3.5) 10^3/uL [place] # (Auto) (0.0-1.0) 10^3/uL Eos # (Auto) (0.0-0.7) 10^3/uL Baso # (Auto) (0.0-0.1) 10^3/uL Absolute Nucleated RBC x10^3/uL Nucleated RBC % /100WBC Sodium (135-145) mmol/L Potassium (3.5-4.5) mmol/L Chloride (101-111) mmol/L Carbon Dioxide (21-32) mmol/L Anion Gap (6-13) BUN (6-20) mg/dL Creatinine (0.6-1.3) mg/dL Estimated GFR (MDRD) (>89) Glucose (74-104) mg/dL POC Whole Bld Glucose 196 H 185 H 194 H (70 - 100) mg/dL Calcium (8.5-10.3) mg/dL C-Reactive Protein (<0.5) mg/dL C-React Prot High Sens mg/L Last Dose Date Last Dose Time Vancomycin Peak (20.0-40.0) ug/mL Vancomycin Trough ug/mL - Other Results/Comments Other Results/Comments: RIGHT foot: Spint in place - this was removed and not replaced 3 cm eshar on the dorsum of the foot over the 4th ray Erythema about the known lateral foot ulcer and dorsal eschar however this is improving Sutures in place Small amounts of serosang drainage. No purulence SILT s/s/sp/dp/t however diminished throughout Fires EHL/FHL/TA/GS/PER Slow cap refill to all digits. IMAGING: No New Imaging Sepsis Event Note (H) - Evaluation Current Stage of Sepsis: Resolved Possible source of Sepsis: positive: Skin/soft tissue Assessment/Plan - Problem List (1) Diabetic infection of right foot Impression: 58yo M s/p Right foot I&D for lateral foot ulcer and dorsal foot abscess on 02/04/24. He was admitted for sepsis and was found to have positive blood cultures (methicillin resistant staph epidermis) and his intraopetative right foot cultures had coag-negative staph. He has been transitioned to Cipro based on sensitivities. He continues to be tachycardic however he has been afebrile. Labs continued to improve with WBC at 8.2 and CRP pending. Based on his clinical exam, he does not require a return to the OR day for a repeat wash out. Ortho will continue to monitor. -Cleared to eat (NPO at 0001 on 02/10/24 for potential repeat I&D) -Non-weight bearing Right lower extremity -Strict elevation of right foot higher than his heart -Leave dressing in place -repeat CRP and CBC in the morning of 02/10/24 -Continue antibiotics -DVT prophylaxis per primary team -Will require wound care and wheelchair upon discharge John Saxena MD Ortho [phone] cell
--- NOTE | 2024-02-08 11:48 | PROVIDER PROGRESS NOTE ---
Subjective - Prog Note Date Prog Note Date: 02/08/24 Prog Note Time: 11:48 - Subjective Subjective: Patient with supine in bed, complaining of right foot pain 7 out of 10. Current Medications - Current Medications Current Medications: Active Medications Acetaminophen (Acetaminophen 325 Mg Tablet) 650 mg PO Q4HR PRN PRN Reason: Pain 1 to 4, or Fever Last Admin: 02/07/24 12:11 Dose: 650 mg Acetaminophen (Acetaminophen 650 Mg Supp) 650 mg WI Q6HR PRN PRN Reason: Pain or Fever > 38C (100.4F) Last Admin: 02/06/24 13:27 Dose: 650 mg Ascorbic Acid (Ascorbic Acid 500 Mg Tablet) 500 mg PO DAILY [facility] Last Admin: 02/08/24 08:10 Dose: 500 mg Docusate Sodium (Docusate Sodium 100 Mg Capsule) 100 mg PO BID PRN PRN Reason: Constipation Doxycycline Hyclate (Doxycycline 100 Mg Tablet) 100 mg PO BID [facility] Ferrous Sulfate (Ferrous Sulfate 325 Mg Tablet) 325 mg PO DAILYWM [facility] Last Admin: 02/08/24 08:10 Dose: 325 mg Heparin Sodium (Porcine) (Heparin 5,000 Unit/Ml Vial) 5,000 unit SUBQ BID [facility] Last Admin: 02/08/24 08:10 Dose: 5,000 unit Hydromorphone HCl (Hydromorphone 1 Mg/Ml Carpuject) 1 mg IVP Q4H PRN PRN Reason: Breakthrough Pain Last Admin: 02/04/24 08:40 Dose: 1 mg Lactated Ringer's (Lr) 1,000 mls @ 125 mls/hr IV .Q8H [facility] Last Admin: 02/08/24 08:11 Dose: 125 mls/hr Insulin Glargine-yfgn (Insulin Glargine-Yfgn 300 Unit/3 Ml Pen) 10 unit SUBQ BID [facility] Last Admin: 02/08/24 08:12 Dose: 10 unit Insulin Human Lispro (Insulin Lispro 300 Unit/3 Ml Pen) 1 - 9 unit SUBQ 0800,1200,1700,2100 [facility]; Protocol Last Admin: 02/08/24 08:13 Dose: 5 unit Insulin Human Lispro (Insulin Lispro 300 Unit/3 Ml Pen) 10 unit SUBQ TIDWM [facility]; Protocol Last Admin: 02/08/24 08:12 Dose: 10 unit Melatonin (Melatonin 3 Mg Tablet) 6 mg PO QPM PRN PRN Reason: Insomnia Metronidazole (Metronidazole 250 Mg Tablet) 500 mg PO TIDWM [facility] Ondansetron HCl (Ondansetron Odt 4 Mg Tablet) 4 mg TL Q6HR PRN PRN Reason: Nausea / Vomiting Ondansetron HCl (Ondansetron 4 Mg/2 Ml Vial) 4 mg IVP Q6HR PRN PRN Reason: Nausea / Vomiting Oxycodone HCl (Oxycodone 5 Mg Tablet) 10 mg PO Q4HR PRN PRN Reason: Pain 8 to 10 Last Admin: 02/08/24 09:16 Dose: 10 mg Oxycodone HCl (Oxycodone 5 Mg Tablet) 5 mg PO Q4HR PRN PRN Reason: Pain 5 to 7 Last Admin: 02/05/24 17:09 Dose: 5 mg Polyethylene Glycol (Polyethylene Glycol 3350 17 Gm Packet) 17 gm PO DAILY [facility] Last Admin: 02/08/24 08:10 Dose: 17 gm Multivit/Folic Acid/Iron ( Vitamin Tablet) 1 tab PO DAILYWM [facility] Last Admin: 02/08/24 08:10 Dose: 1 tab Senna (Senna 8.6 Mg Tablet) 8.6 mg PO DAILY [facility] Last Admin: 02/08/24 08:10 Dose: 8.6 mg Sodium Chloride (Sodium Chloride Flush 0.9% 10 Ml Syringe) 10 ml IVP PRN PRN PRN Reason: NEEDED PER PROVIDER ORDERS Last Admin: 02/07/24 06:49 Dose: 10 ml Sodium Chloride (Sodium Chloride Flush 0.9% 10 Ml Syringe) 10 ml IVP 0100,0900,1700 [facility] Last Admin: 02/08/24 08:13 Dose: 10 ml Thiamine HCl (Thiamine 100 Mg Tablet) 100 mg PO DAILY [facility] Last Admin: 02/08/24 08:10 Dose: 100 mg Diclofenac Submicronized [Diclofenac] 75 mg PO DAILY 02/02/24 Gabapentin [Gabapentin ER] 300 mg PO QID 02/02/24 Objective - Vital Signs/Intake & Output Vital Signs: Vital Signs x48h Temp Pulse Resp BP Pulse Ox 02/08/24 09:32 102 H 130/81 H 02/08/24 08:00 36.5 C 117 H 18 177/100 H 97 Intake & Output: Intake & Output 02/05/24 02/06/24 02/07/24 02/08/24 23:59 23:59 23:59 23:59 Intake Total 4748.25 4896.25 5521.667 1845.417 Output Total 180 167 9158 1775 Balance 4073.25 4271.25 1846.667 70.417 - Objective General Appearance: positive: No acute distress, Alert Eyes Bilateral: positive: EOMI Neck: positive: Trachea midline Respiratory: positive: No respiratory distress, Breath sounds nml Cardiovascular: positive: Regular rate & rhythm, No murmur Abdomen: positive: Non-tender, Nml bowel sounds, No distention. negative: Guarding, Rebound Skin: positive: Warm Extremities: positive: No pedal edema, Other (Right lower extremity dressing intact no drainage to dressing noted.) Neurologic/Psychiatric: positive: Motor nml - Lab Results Fish Bones: 02/08/24 05:44 02/08/24 05:44 Other Labs: Lab Results x24hrs 02/08/24 02/08/24 02/08/24 Range/Units 05:44 05:44 05:44 WBC (4.8-10.8) x10^3/uL RBC (4.70-6.10) 10^6/uL Hgb (14.0-18.0) g/dL Hct (42.0-52.0) % MCV (80.0-94.0) fL MCH (27.0-31.0) pg MCHC (32.0-36.0) g/dL RDW (12.0-15.0) % Plt Count (130-450) 10^3/uL MPV (7.4-11.4) fL Neut # (Auto) (1.5-6.6) 10^3/uL Lymph # (Auto) (1.5-3.5) 10^3/uL [place] # (Auto) (0.0-1.0) 10^3/uL Eos # (Auto) (0.0-0.7) 10^3/uL Baso # (Auto) (0.0-0.1) 10^3/uL Absolute Nucleated RBC x10^3/uL Nucleated RBC % /100WBC Sodium (135-145) mmol/L Potassium (3.5-4.5) mmol/L Chloride (101-111) mmol/L Carbon Dioxide (21-32) mmol/L Anion Gap (6-13) BUN (6-20) mg/dL Creatinine (0.6-1.3) mg/dL Estimated GFR (MDRD) (>89) Glucose (74-104) mg/dL POC Whole Bld Glucose (70 - 100) mg/dL Calcium (8.5-10.3) mg/dL C-Reactive Protein 17.4 H (<0.5) mg/dL C-React Prot High Sens > 800.00 mg/L Last Dose Date 02-08-24 Last Dose Time 034 Vancomycin Peak 31.2 (20.0-40.0) ug/mL Vancomycin Trough ug/mL 02/08/24 02/08/24 02/08/24 Range/Units 05:44 05:44 01:44 WBC 8.2 (4.8-10.8) x10^3/uL RBC 3.27 L (4.70-6.10) 10^6/uL Hgb 10.3 L (14.0-18.0) g/dL Hct 32.8 L (42.0-52.0) % MCV 100.3 H (80.0-94.0) fL MCH 31.5 H (27.0-31.0) pg MCHC 31.4 L (32.0-36.0) g/dL RDW 12.4 (12.0-15.0) % Plt Count 287 (130-450) 10^3/uL MPV 8.8 (7.4-11.4) fL Neut # (Auto) 5.3 (1.5-6.6) 10^3/uL Lymph # (Auto) 1.4 L (1.5-3.5) 10^3/uL [place] # (Auto) 1.1 H (0.0-1.0) 10^3/uL Eos # (Auto) 0.4 (0.0-0.7) 10^3/uL Baso # (Auto) 0.1 (0.0-0.1) 10^3/uL Absolute Nucleated RBC 0.00 x10^3/uL Nucleated RBC % 0.0 /100WBC Sodium 133 L (135-145) mmol/L Potassium 4.1 (3.5-4.5) mmol/L Chloride 105 (101-111) mmol/L Carbon Dioxide 22 (21-32) mmol/L Anion Gap 6.0 (6-13) BUN 25 H (6-20) mg/dL Creatinine 1.9 H (0.6-1.3) mg/dL Estimated GFR (MDRD) 36 L (>89) Glucose 258 H (74-104) mg/dL POC Whole Bld Glucose (70 - 100) mg/dL Calcium 8.6 (8.5-10.3) mg/dL C-Reactive Protein (<0.5) mg/dL C-React Prot High Sens mg/L Last Dose Date 02-07-24 Last Dose Time 0200 Vancomycin Peak (20.0-40.0) ug/mL Vancomycin Trough 19.8 ug/mL 02/07/24 02/07/24 02/07/24 Range/Units 20:46 16:49 11:55 WBC (4.8-10.8) x10^3/uL RBC (4.70-6.10) 10^6/uL Hgb (14.0-18.0) g/dL Hct (42.0-52.0) % MCV (80.0-94.0) fL MCH (27.0-31.0) pg MCHC (32.0-36.0) g/dL RDW (12.0-15.0) % Plt Count (130-450) 10^3/uL MPV (7.4-11.4) fL Neut # (Auto) (1.5-6.6) 10^3/uL Lymph # (Auto) (1.5-3.5) 10^3/uL [place] # (Auto) (0.0-1.0) 10^3/uL Eos # (Auto) (0.0-0.7) 10^3/uL Baso # (Auto) (0.0-0.1) 10^3/uL Absolute Nucleated RBC x10^3/uL Nucleated RBC % /100WBC Sodium (135-145) mmol/L Potassium (3.5-4.5) mmol/L Chloride (101-111) mmol/L Carbon Dioxide (21-32) mmol/L Anion Gap (6-13) BUN (6-20) mg/dL Creatinine (0.6-1.3) mg/dL Estimated GFR (MDRD) (>89) Glucose (74-104) mg/dL POC Whole Bld Glucose 196 H 185 H 194 H (70 - 100) mg/dL Calcium (8.5-10.3) mg/dL C-Reactive Protein (<0.5) mg/dL C-React Prot High Sens mg/L Last Dose Date Last Dose Time Vancomycin Peak (20.0-40.0) ug/mL Vancomycin Trough ug/mL Sepsis Event Note (H) - Evaluation Current Stage of Sepsis: Resolved Possible source of Sepsis: positive: Skin/soft tissue Assessment/Plan - Problem List (1) Diabetic infection of right foot Impression: He reports having a right foot wound ever since a bunion developed on the right lateral aspect of his foot approximately four months ago. It has been progressively worsening since then and in the past month it has become more of an open ulcer. Over the past week it has been erythematous and more painful, and he was prescribed Keflex on 02/27. The infection seemed to progress despite this and he was prescribed Bactrim 2 days ago and his symptoms continued to worsen. -MRI of the right foot is negative for osteomyelitis, but did show a fluid collection. -Blood cultures with Staph epidermidis (Methicillin-resistant/beta-lactamase positive). Outpatient wound culture growing MSSA. Operative wound culture growing Staph epidermidis. Operative anaerobic and fungal cultures pending. -Continue IV vancomycin. Originally on Zosyn, but changed to Ciprofloxacin on 02/06/24 given continued fevers as this will cover gram negatives as well as better cover staph epidermidis. -Orthopedic Surgery (Dr. John Saxena) consulted, appreciate assistance. Underwent I&D on 02/04/24. Will re-evaluate 02/07 to ensure he does not require repeat I&D. -Arterial duplex of right leg ;indicates occluded SFA with reconstitution distally via collaterals. Per discussion with orthopedic today no further surgery at this moment per Ortho will reevaluate in a couple days. We will change IV vancomycin and Cipro since Vanco trough and peak concentration the nephrotoxic level with patient having acute kidney injury will switch to doxycycline and Flagyl and await anaerobic culture.Physical therapy evaluation (2) Bacteremia due to Staphylococcus epidermidis Impression: His blood culture from admission is growing gram-positive cocci in clusters with a PCR panel that is showing Staphylococcus epidermidis that carries the methicillin-resistant gene. -Continue contact precautions. -On IV vancomycin since admission. Switched Zosyn to Cipro 02/06/24 due to ongoing sepsis/fevers as Cipro can cover bacteremia better. -Repeat blood cultures 02/05/24 NGTD thus far. -Appears to be a true pathogenic staph epidermidis bacteremia as his operative foot cultures are growing the same bacteria. Negative blood culture on 02/05/2024 will continue Doxy and Flagyl for 14 days from this date follow-up CBC and inflammatory markers repeat blood culture negative. (3) Sepsis Impression: He met criteria for sepsis due to elevated white blood cell count along with tachycardia in the setting of a right diabetic foot infection. -Lactic acid is normal on presentation. On 02/06/24 he developed significant fevers, tachycardia and mild hypotension. Repeat lactic acid was negative, though he would meet criteria for severe sepsis on 02/06/24 due to confusion and SERENA. -Will DC IV Vanco and start p.o. antibiotics monitor CBC anti-inflammatory markers -Received several liters of IV fluids yesterday. Will place on continuous ns IV fluids today. Qualifiers: Sepsis acute organ dysfunction status: without acute organ dysfunction (4) SERENA (acute kidney injury) Impression: His creatinine was normal on presentation but has been slowly increasing every day. Today it jumped from 1.0 to 1.7. This could be a combination of PAPA induced SERENA with contribution from vancomycin induced SERENA versus prerenal causes from sepsis/infection. -Discontinued lisinopril (last/first dose was 02/02). Pharmacy to monitor vancomycin trough levels and adjust vancomycin dosing as indicated. -Received 1 liter NS bolus plus 1 liter IV fluids over 8 hours on 02/04. Received another 2 liters on 02/05. -Renal ultrasound showed no hydronephrosis. FENA is 0.25% indicating pre-renal causes, likely from sepsis. CK normal. . Fena calculated at 0.25% consistent with prerenal, Will switch lactated Ringer to NS since still hyponatremic (5) Uncontrolled diabetes mellitus Impression: He has been prescribed metformin previously but had diarrhea with this. He was then prescribed Glimepiride, but he does not take this because he did not feel that this improved his glucose at all. He currently is not taking any medications for diabetes at this time. -A1c is 11%. -Continue Lantus (switched to 10 units BID due to poor PO intake in past 24 hours), Lispro 10 units TID with meals and SSI coverage. Adjust further if needed. -Will need to be discharged on insulin therapy. Will need diabetic/insulin teaching prior to discharge. Will also need to make sure his [place] pharmacy will cover the insulin appropriately. Qualifiers: Diabetes mellitus type: type 2 Glycemic state: with hyperglycemia Qualified Code(s): E11.65 - Type 2 diabetes mellitus with hyperglycemia (6) Alcohol use disorder Impression: He drinks heavily at home and usually has a fifth of whiskey per day. -Received IV thiamine in the ED. Continue multivitamin with and PO thiamine. -Had been on Librium 25 mg TID since admission, but held this starting 02/06/24 due to lethargic status in the setting of sepsis and SERENA. Part of his lethargy was likely Gabapentin retention due to SERENA as well. -Monitor for other signs of withdrawal and order CIWA if they develop. (7) Renal mass Impression: Renal ultrasound shows a 2.3 cm exophytic cyst in the left superior pole of the kidney. -Encourage outpatient follow up with renal mass protocol CT vs MRI. Avoiding those at this time due to SERENA and other acute illnesses. (8) Hypertension Impression: He is not taking any medications for this currently. -Started lisinopril 10 mg daily 02/02, but held 02/03 due to OR. Discontinued due to SERENA but only received one dose on 02/02. -Can have as needed hydralazine if the blood pressure increases significantly. (9) Peripheral neuropathy Impression: He has diabetic peripheral neuropathy in both of his lower extremities. -Holding home Gabapentin 300 mg QID due to lethargy and SERENA. (10) BPH (benign prostatic hyperplasia) Impression: He does not take any medication for this at this time. -Monitor for signs/symptoms of urinary retention. -Renal ultrasound shows no hydronephrosis or retention. (11) Tobacco use disorder Impression: Counseled on smoking cessation. -Continue Nicotine patch. DVTProphylaxis: Subcu heparin
[2024-02-08] MEDS: SODIUM CHLORIDE 0.9% 1,000 ML IV SCH (12:38)
[2024-02-08] MEDS: metroNIDAZOLE 250 MG TABLET PO SCH (17:19)
[2024-02-08] MEDS: DOXYCYCLINE 100 MG TABLET PO SCH (21:09)
[2024-02-09 09:08] LABS: BASOPHILS # (AUTO) 0.1 10^3/uL (0.0-0.1); EOSINOPHILS # (AUTO) 0.3 10^3/uL (0.0-0.7); EOSINOPHILS % (AUTO) 3.8 %; HGB - HEMOGLOBIN 11.1 g/dL (14.0-18.0); LYMPHOCYTES % (AUTO) 14.6 %; MEAN CORPUSCULAR HGB CONC 31.7 g/dL (32.0-36.0); MEAN CORPUSCULAR VOLUME 100.9 fL (80.0-94.0); MEAN PLATELET VOLUME 8.4 fL (7.4-11.4); MONOCYTES # (AUTO) 0.9 10^3/uL (0.0-1.0); MONOCYTES % (AUTO) 12.5 %; NEUTROPHILS # (AUTO) 4.8 10^3/uL (1.5-6.6); NEUTROPHILS % (AUTO) 67.4 %; PLT - PLATELET COUNT 278 10^3/uL (130-450); RED BLOOD COUNT 3.47 10^6/uL (4.70-6.10); RED CELL DISTRIBUTION WIDTH 12.3 % (12.0-15.0); WHITE BLOOD COUNT 7.1 x10^3/uL (4.8-10.8)
[2024-02-09 09:22] LABS: CALCIUM 8.9 mg/dL (8.5-10.3); CREATININE 2.1 mg/dL (0.6-1.3); POTASSIUM 4.1 mmol/L (3.5-4.5)
[2024-02-09] MEDS: carvediloL 3.125 MG TABLET PO SCH (09:45)
[2024-02-09] MEDS ORDERED: INSULIN GLARGINE-YFGN 300 UNIT/3 ML PEN SUBQ SCH (09:57)
--- NOTE | 2024-02-09 12:49 | PROVIDER PROGRESS NOTE ---
Subjective - Prog Note Date Prog Note Date: 02/09/24 (n) Prog Note Time: 12:47 - Subjective Subjective: Patient supine in bed in no acute distress patient given pain medication, discussed with girlfriend and long-term partner in patient's room who has allo wed her to get information, per discussion with patient and girlfriend patient girlfriend concerned about overmedication with narcotics. Current Medications - Current Medications Current Medications: Active Medications Acetaminophen (Acetaminophen 325 Mg Tablet) 650 mg PO Q4HR PRN PRN Reason: Pain 1 to 4, or Fever Last Admin: 02/07/24 12:11 Dose: 650 mg Acetaminophen (Acetaminophen 650 Mg Supp) 650 mg DC Q6HR PRN PRN Reason: Pain or Fever > 38C (100.4F) Last Admin: 02/06/24 13:27 Dose: 650 mg Ascorbic Acid (Ascorbic Acid 500 Mg Tablet) 500 mg PO DAILY [facility] Last Admin: 02/09/24 08:28 Dose: 500 mg Carvedilol (Carvedilol 3.125 Mg Tablet) 3.125 mg PO BID [facility] Last Admin: 02/09/24 09:45 Dose: 3.125 mg Docusate Sodium (Docusate Sodium 100 Mg Capsule) 100 mg PO BID PRN PRN Reason: Constipation Doxycycline Hyclate (Doxycycline 100 Mg Tablet) 100 mg PO BID [facility] Last Admin: 02/09/24 08:28 Dose: 100 mg Ferrous Sulfate (Ferrous Sulfate 325 Mg Tablet) 325 mg PO DAILYWM [facility] Last Admin: 02/09/24 08:28 Dose: 325 mg Heparin Sodium (Porcine) (Heparin 5,000 Unit/Ml Vial) 5,000 unit SUBQ BID [facility] Last Admin: 02/09/24 08:24 Dose: 5,000 unit Hydromorphone HCl (Hydromorphone 1 Mg/Ml Carpuject) 1 mg IVP Q4H PRN PRN Reason: Breakthrough Pain Last Admin: 02/04/24 08:40 Dose: 1 mg Sodium Chloride (Normal Saline 0.9%) 1,000 mls @ 125 mls/hr IV .Q8H [facility] Last Admin: 02/09/24 11:57 Dose: 125 mls/hr Insulin Glargine-yfgn (Insulin Glargine-Yfgn 300 Unit/3 Ml Pen) 15 unit SUBQ QPM [facility] Insulin Glargine-yfgn (Insulin Glargine-Yfgn 300 Unit/3 Ml Pen) 10 unit SUBQ DAILY [facility] Insulin Human Lispro (Insulin Lispro 300 Unit/3 Ml Pen) 1 - 9 unit SUBQ 0800,1200,1700,2100 [facility]; Protocol Last Admin: 02/09/24 11:56 Dose: 3 unit Insulin Human Lispro (Insulin Lispro 300 Unit/3 Ml Pen) 10 unit SUBQ TIDWM [facility]; Protocol Last Admin: 02/09/24 11:56 Dose: 10 unit Melatonin (Melatonin 3 Mg Tablet) 6 mg PO QPM PRN PRN Reason: Insomnia Metronidazole (Metronidazole 250 Mg Tablet) 500 mg PO TIDWM [facility] Last Admin: 02/09/24 11:58 Dose: 500 mg Ondansetron HCl (Ondansetron Odt 4 Mg Tablet) 4 mg TL Q6HR PRN PRN Reason: Nausea / Vomiting Ondansetron HCl (Ondansetron 4 Mg/2 Ml Vial) 4 mg IVP Q6HR PRN PRN Reason: Nausea / Vomiting Oxycodone HCl (Oxycodone 5 Mg Tablet) 10 mg PO Q4HR PRN PRN Reason: Pain 8 to 10 Last Admin: 02/09/24 11:49 Dose: 10 mg Oxycodone HCl (Oxycodone 5 Mg Tablet) 5 mg PO Q4HR PRN PRN Reason: Pain 5 to 7 Last Admin: 02/05/24 17:09 Dose: 5 mg Polyethylene Glycol (Polyethylene Glycol 3350 17 Gm Packet) 17 gm PO DAILY [facility] Last Admin: 02/09/24 10:03 Dose: Not Given Multivit/Folic Acid/Iron ( Vitamin Tablet) 1 tab PO DAILYWM [facility] Last Admin: 02/09/24 08:28 Dose: 1 tab Senna (Senna 8.6 Mg Tablet) 8.6 mg PO DAILY [facility] Last Admin: 02/09/24 10:03 Dose: Not Given Sodium Chloride (Sodium Chloride Flush 0.9% 10 Ml Syringe) 10 ml IVP PRN PRN PRN Reason: NEEDED PER PROVIDER ORDERS Last Admin: 02/07/24 06:49 Dose: 10 ml Sodium Chloride (Sodium Chloride Flush 0.9% 10 Ml Syringe) 10 ml IVP 0100, 0900,1700 [facility] Last Admin: 02/09/24 08:29 Dose: 10 ml Thiamine HCl (Thiamine 100 Mg Tablet) 100 mg PO DAILY [facility] Last Admin: 02/09/24 08:29 Dose: 100 mg Diclofenac Submicronized [Diclofenac] 75 mg PO DAILY 02/02/24 Gabapentin [Gabapentin ER] 300 mg PO QID 02/02/24 Objective - Vital Signs/Intake & Output Vital Signs: Vital Signs x48h Temp Pulse Resp BP Pulse Ox 02/09/24 07:40 37.8 C 117 H 12 148/94 H 92 Intake & Output: Intake & Output 02/06/24 02/07/24 02/08/24 02/09/24 23:59 23:59 23:59 23:59 Intake Total 4896.25 5521.667 3822.084 2245.833 Output Total 625 3675 3300 2150 Balance 4271.25 1846.667 522.084 95.833 - Objective General Appearance: positive: No acute distress Eyes Bilateral: positive: PERRL, EOMI ENT: positive: Pharynx nml Neck: positive: Trachea midline Respiratory: positive: No respiratory distress, Breath sounds nml Cardiovascular: positive: Regular rate & rhythm, No murmur Abdomen: positive: Non-tender, Nml bowel sounds, No distention. negative: Guarding, Rebound Skin: positive: Warm Extremities: positive: Other (Right foot dressing intact no drainage to it noted) Neurologic/Psychiatric: positive: Motor nml - Lab Results Fish Bones: 02/09/24 09:01 02/09/24 09:01 Other Labs: Lab Results x24hrs 02/09/24 02/09/24 02/09/24 Range/Units 11:49 09:01 09:01 WBC 7.1 (4.8-10.8) x10^3/uL RBC 3.47 L (4.70-6.10) 10^6/uL Hgb 11.1 L (14.0-18.0) g/dL Hct 35.0 L (42.0-52.0) % MCV 100.9 H (80.0-94.0) fL MCH 32.0 H (27.0-31.0) pg MCHC 31.7 L (32.0-36.0) g/dL RDW 12.3 (12.0-15.0) % Plt Count 278 (130-450) 10^3/uL MPV 8.4 (7.4-11.4) fL Neut # (Auto) 4.8 (1.5-6.6) 10^3/uL Lymph # (Auto) 1.0 L (1.5-3.5) 10^3/uL [place] # (Auto) 0.9 (0.0-1.0) 10^3/uL Eos # (Auto) 0.3 (0.0-0.7) 10^3/uL Baso # (Auto) 0.1 (0.0-0.1) 10^3/uL Absolute Nucleated RBC 0.00 x10^3/uL Nucleated RBC % 0.0 /100WBC Sodium 138 (135-145) mmol/L Potassium 4.1 (3.5-4.5) mmol/L Chloride 107 (101-111) mmol/L Carbon Dioxide 23 (21-32) mmol/L Anion Gap 8.0 (6-13) BUN 24 H (6-20) mg/dL Creatinine 2.1 H (0.6-1.3) mg/dL Estimated GFR (MDRD) 32 L (>89) Glucose 242 H (74-104) mg/dL POC Whole Bld Glucose 241 H (70 - 100) mg/dL Calcium 8.9 (8.5-10.3) mg/dL 02/09/24 02/08/24 Range/Units 07:44 20:55 WBC (4.8-10.8) x10^3/uL RBC (4.70-6.10) 10^6/uL Hgb (14.0-18.0) g/dL Hct (42.0-52.0) % MCV (80.0-94.0) fL MCH (27.0-31.0) pg MCHC (32.0-36.0) g/dL RDW (12.0-15.0) % Plt Count (130-450) 10^3/uL MPV (7.4-11.4) fL Neut # (Auto) (1.5-6.6) 10^3/uL Lymph # (Auto) (1.5-3.5) 10^3/uL [place] # (Auto) (0.0-1.0) 10^3/uL Eos # (Auto) (0.0-0.7) 10^3/uL Baso # (Auto) (0.0-0.1) 10^3/uL Absolute Nucleated RBC x10^3/uL Nucleated RBC % /100WBC Sodium (135-145) mmol/L Potassium (3.5-4.5) mmol/L Chloride (101-111) mmol/L Carbon Dioxide (21-32) mmol/L Anion Gap (6-13) BUN (6-20) mg/dL Creatinine (0.6-1.3) mg/dL Estimated GFR (MDRD) (>89) Glucose (74-104) mg/dL POC Whole Bld Glucose 206 H 184 H (70 - 100) mg/dL Calcium (8.5-10.3) mg/dL ABX Reporting Has patient been on IV antibiotics over the past 48 hours?: No Sepsis Event Note (H) - Evaluation Current Stage of Sepsis: Resolved Possible source of Sepsis: positive: Skin/soft tissue Assessment/Plan - Problem List (1) Diabetic infection of right foot Impression: He reports having a right foot wound ever since a bunion developed on the right lateral aspect of his foot approximately four months ago. It has been progressively worsening since then and in the past month it has become more of an open ulcer. Over the past week it has been erythematous and more painful, and he was prescribed Keflex on 02/27. The infection seemed to progress despite this and he was prescribed Bactrim 2 days ago and his symptoms continued to worsen. -MRI of the right foot is negative for osteomyelitis, but did show a fluid c ollection. -Blood cultures with Staph epidermidis (Methicillin-resistant/beta-lactamase positive). Outpatient wound culture growing MSSA. Operative wound culture growing Staph epidermidis. Operative anaerobic and fungal cultures pending. -Continue IV vancomycin. Originally on Zosyn, but changed to Ciprofloxacin on 02/06/24 given continued fevers as this will cover gram negatives as well as better cover staph epidermidis. -Orthopedic Surgery (Dr. John Saxena) consulted, appreciate assistance. Und erwent I&D on 02/04/24. Will re-evaluate 02/07 to ensure he does not require repeat I&D. -Arterial duplex of right leg ;indicates occluded SFA with reconstitution distally via collaterals. Per discussion with orthopedic today no further surgery at this moment per Ortho will reevaluate in a couple days. On p.o. doxycycline and Flagyl, await anaerobic culture, continue PT, per PT patient not participating, looks sedated on IV Dilaudid and p.o. Roxicodone will DC IV Dilaudid as discussed with patient and his girlfriend. (2) Bacteremia due to Staphylococcus epidermidis Impression: His blood culture from admission is growing gram-positive cocci in clusters with a PCR panel that is showing Staphylococcus epidermidis that carries the methicillin-resistant gene. -Continue contact precautions. -On IV vancomycin since admission. Switched Zosyn to Cipro 02/06/24 due to ongoing sepsis/fevers as Cipro can cover bacteremia better. -Repeat blood cultures 02/05/24 NGTD thus far. -Appears to be a true pathogenic staph epidermidis bacteremia as his operative foot cultures are growing the same bacteria. Negative blood culture on 02/05/2024 will continue Doxy and Flagyl for 14 days from this date follow-up CBC and inflammatory markers repeat blood culture negative. (3) Sepsis Impression: He met criteria for sepsis due to elevated white blood cell count along with tachycardia in the setting of a right diabetic foot infection. -Lactic acid is normal on presentation. On 02/06/24 he developed significant fevers, tachycardia and mild hypotension. Repeat lactic acid was negative, though he would meet criteria for severe sepsis on 02/06/24 due to confusion and SERENA. -off IV Vanco and on p.o. antibiotics monitor CBC anti-inflammatory markers -Received several liters of IV fluids yesterday. Will place on continuous ns IV fluids Qualifiers: Sepsis acute organ dysfunction status: without acute organ dysfunction (4) SERENA (acute kidney injury) Impression: His creatinine was normal on presentation but has been slowly increasing every day. Today it jumped from 1.0 to 1.7. This could be a combination of PAPA induced SERENA with contribution from vancomycin induced SERENA versus prerenal causes from sepsis/infection. -Discontinued lisinopril (last/first dose was 02/02). Pharmacy to monitor vancomycin trough levels and adjust vancomycin dosing as indicated. -Received 1 liter NS bolus plus 1 liter IV fluids over 8 hours on 02/04. Received another 2 liters on 02/05. -Renal ultrasound showed no hydronephrosis. FENA is 0.25% indicating pre-renal causes, likely from sepsis. CK normal. . Fena calculated at 0.25% consistent with prerenal,Continue with NS hydration monitor sodium (5) Uncontrolled diabetes mellitus Impression: He has been prescribed metformin previously but had diarrhea with this. He was then prescribed Glimepiride, but he does not take this because he did not feel that this improved his glucose at all. He currently is not taking any medications for diabetes at this time. -A1c is 11%. -Continue Lantus (switched to 15 units SQ every afternoon and 10 units subcu every morning), Lispro 10 units TID with meals and SSI coverage. Adjust further if needed. -Will need to be discharged on insulin therapy. Will need diabetic/insulin teaching prior to discharge. Will also need to make sure his [place] pharmacy will cover the insulin appropriately. Qualifiers: Diabetes mellitus type: type 2 Glycemic state: with hyperglycemia Qualified Code(s): E11.65 - Type 2 diabetes mellitus with hyperglycemia (6) Alcohol use disorder Impression: He drinks heavily at home and usually has a fifth of whiskey per day. -Received IV thiamine in the ED. Continue multivitamin with and PO thiamine. -Had been on Librium 25 mg TID since admission, but held this starting 02/06/24 due to lethargic status in the setting of sepsis and SERENA. Part of his lethargy was likely Gabapentin retention due to SERENA as well. -Monitor for other signs of withdrawal and order CIWA if they develop. (7) Renal mass Impression: Renal ultrasound shows a 2.3 cm exophytic cyst in the left superior pole of the kidney. -Encourage outpatient follow up with renal mass protocol CT vs MRI. Avoiding those at this time due to SERENA and other acute illnesses. (8) Hypertension Impression: He is not taking any medications for this currently. -Started lisinopril 10 mg daily 02/02, but held 02/03 due to OR. Discontinued due to SERENA but only received one dose on 02/02. -Can have as needed hydralazine if the blood pressure increases significantly. Coreg added for better blood pressure control (9) Peripheral neuropathy Impression: He has diabetic peripheral neuropathy in both of his lower extremities. -Holding home Gabapentin 300 mg QID due to lethargy and SERENA. (10) BPH (benign prostatic hyperplasia) Impression: He does not take any medication for this at this time. -Monitor for signs/symptoms of urinary retention. -Renal ultrasound shows no hydronephrosis or retention. (11) Tobacco use disorder Impression: Counseled on smoking cessation. -Continue Nicotine patch. DVTProphylaxis: Subcu heparin
[2024-02-09] MEDS: INSULIN GLARGINE-YFGN 300 UNIT/3 ML PEN SUBQ SCH (21:06)
[2024-02-10 05:15] LABS: BASOPHILS # (AUTO) 0.1 10^3/uL (0.0-0.1); BASOPHILS % (AUTO) 1.3 %; EOSINOPHILS # (AUTO) 0.4 10^3/uL (0.0-0.7); EOSINOPHILS % (AUTO) 5.5 %; HCT - HEMATOCRIT 31.7 % (42.0-52.0); HGB - HEMOGLOBIN 10.2 g/dL (14.0-18.0); LYMPHOCYTES # (AUTO) 1.8 10^3/uL (1.5-3.5); LYMPHOCYTES % (AUTO) 25.1 %; MEAN CORPUSCULAR HGB CONC 32.2 g/dL (32.0-36.0); MEAN CORPUSCULAR VOLUME 99.4 fL (80.0-94.0); MEAN PLATELET VOLUME 8.7 fL (7.4-11.4); MONOCYTES # (AUTO) 0.8 10^3/uL (0.0-1.0); MONOCYTES % (AUTO) 11.8 %; NEUTROPHILS # (AUTO) 3.9 10^3/uL (1.5-6.6); NEUTROPHILS % (AUTO) 55.3 %; PLT - PLATELET COUNT 318 10^3/uL (130-450); RED BLOOD COUNT 3.19 10^6/uL (4.70-6.10); RED CELL DISTRIBUTION WIDTH 12.4 % (12.0-15.0); WHITE BLOOD COUNT 7.1 x10^3/uL (4.8-10.8)
[2024-02-10 05:46] LABS: CREATININE 1.9 mg/dL (0.6-1.3); CRP - C-REACTIVE PROTEIN 12.1 mg/dL (<0.5); POTASSIUM 3.6 mmol/L (3.5-4.5)
[2024-02-10] MEDS: LACTULOSE 10 GM /15 ML UDC PO SCH (11:30)
--- NOTE | 2024-02-10 12:51 | PROVIDER PROGRESS NOTE ---
Subjective - Prog Note Date Prog Note Date: 02/10/24 Prog Note Time: 12:49 - Subjective Subjective: Patient more awake today supine in bed still has pain in his right lower extremity but does not look in distress or in pain Current Medications - Current Medications Current Medications: Active Medications Acetaminophen (Acetaminophen 325 Mg Tablet) 650 mg PO Q4HR PRN PRN Reason: Pain 1 to 4, or Fever Last Admin: 02/10/24 00:58 Dose: 650 mg Acetaminophen (Acetaminophen 650 Mg Supp) 650 mg AR Q6HR PRN PRN Reason: Pain or Fever > 38C (100.4F) Last Admin: 02/06/24 13:27 Dose: 650 mg Ascorbic Acid (Ascorbic Acid 500 Mg Tablet) 500 mg PO DAILY [facility] Last Admin: 02/10/24 09:08 Dose: 500 mg Carvedilol (Carvedilol 3.125 Mg Tablet) 3.125 mg PO BID [facility] Last Admin: 02/10/24 09:08 Dose: 3.125 mg Docusate Sodium (Docusate Sodium 100 Mg Capsule) 100 mg PO BID PRN PRN Reason: Constipation Doxycycline Hyclate (Doxycycline 100 Mg Tablet) 100 mg PO BID [facility] Last Admin: 02/10/24 09:08 Dose: 100 mg Ferrous Sulfate (Ferrous Sulfate 325 Mg Tablet) 325 mg PO DAILYWM [facility] Last Admin: 02/10/24 09:08 Dose: 325 mg Heparin Sodium (Porcine) (Heparin 5,000 Unit/Ml Vial) 5,000 unit SUBQ BID [facility] Last Admin: 02/10/24 09:08 Dose: 5,000 unit Sodium Chloride (Normal Saline 0.9%) 1,000 mls @ 125 mls/hr IV .Q8H [facility] Last Admin: 02/10/24 12:30 Dose: 125 mls/hr Insulin Glargine-yfgn (Insulin Glargine-Yfgn 300 Unit/3 Ml Pen) 15 unit SUBQ QP M [facility] Last Admin: 02/09/24 21:06 Dose: 15 unit Insulin Glargine-yfgn (Insulin Glargine-Yfgn 300 Unit/3 Ml Pen) 10 unit SUBQ DAILY [facility] Insulin Human Lispro (Insulin Lispro 300 Unit/3 Ml Pen) 1 - 9 unit SUBQ 0800,1200,1700,2100 [facility]; Protocol Last Admin: 02/10/24 12:26 Dose: 1 unit Insulin Human Lispro (Insulin Lispro 300 Unit/3 Ml Pen) 10 unit SUBQ TIDWM [facility]; Protocol Last Admin: 02/10/24 12:27 Dose: 10 unit Lactulose (Lactulose 10 Gm /15 Ml Udc) 20 gm PO Q4H [facility] Stop: 02/10/24 23:01 Melatonin (Melatonin 3 Mg Tablet) 6 mg PO QPM PRN PRN Reason: Insomnia Ondansetron HCl (Ondansetron Odt 4 Mg Tablet) 4 mg TL Q6HR PRN PRN Reason: Nausea / Vomiting Ondansetron HCl (Ondansetron 4 Mg/2 Ml Vial) 4 mg IVP Q6HR PRN PRN Reason: Nausea / Vomiting Oxycodone HCl (Oxycodone 5 Mg Tablet) 10 mg PO Q4HR PRN PRN Reason: Pain 8 to 10 Last Admin: 02/10/24 00:58 Dose: 10 mg Oxycodone HCl (Oxycodone 5 Mg Tablet) 5 mg PO Q4HR PRN PRN Reason: Pain 5 to 7 Last Admin: 02/05/24 17:09 Dose: 5 mg Polyethylene Glycol (Polyethylene Glycol 3350 17 Gm Packet) 17 gm PO DAILY [facility] Last Admin: 02/09/24 10:03 Dose: Not Given Multivit/Folic Acid/Iron ( Vitamin Tablet) 1 tab PO DAILYWM [facility] Last Admin: 02/10/24 09:08 Dose: 1 tab Senna (Senna 8.6 Mg Tablet) 8.6 mg PO DAILY [facility] Last Admin: 02/09/24 10:03 Dose: Not Given Sodium Chloride (Sodium Chloride Flush 0.9% 10 Ml Syringe) 10 ml IVP PRN PRN PRN Reason: NEEDED PER PROVIDER ORDERS Last Admin: 02/07/24 06:49 Dose: 10 ml Sodium Chloride (Sodium Chloride Flush 0.9% 10 Ml Syringe) 10 ml IVP 01 00,0900,1700 [facility] Last Admin: 02/10/24 09:09 Dose: Not Given Thiamine HCl (Thiamine 100 Mg Tablet) 100 mg PO DAILY [facility] Last Admin: 02/10/24 09:08 Dose: 100 mg Diclofenac Submicronized [Diclofenac] 75 mg PO DAILY 02/02/24 Gabapentin [Gabapentin ER] 300 mg PO QID 02/02/24 Objective - Vital Signs/Intake & Output Vital Signs: Vital Signs x48h Temp Pulse Resp BP Pulse Ox 02/10/24 07:52 37.1 C 102 H 20 155/99 H 92 Intake & Output: Intake & Output 02/07/24 02/08/24 02/09/24 02/10/24 23:59 23:59 23:59 23:59 Intake Total 5521.667 3822.084 3879.166 1899.167 Output Total 3675 3300 3425 750 Balance 1846.667 522.084 276.440 7781.167 - Objective General Appearance: positive: No acute distress Eyes Bilateral: positive: EOMI ENT: positive: Pharynx nml Neck: positive: Trachea midline Respiratory: positive: No respiratory distress, Breath sounds nml Cardiovascular: positive: Regular rate & rhythm, No murmur Abdomen: positive: Non-tender, Nml bowel sounds, No distention. negative: Guarding, Rebound Skin: positive: Warm Extremities: positive: No pedal edema Neurologic/Psychiatric: positive: Oriented x3, Motor nml - Lab Results Fish Bones: 02/10/24 04:30 02/10/24 04:30 Other Labs: Lab Results x24hrs 02/10/24 02/10/24 02/10/24 Range/Units 11:36 07:50 04:30 WBC (4.8-10.8) x10^3/uL RBC (4.70-6.10) 10^6/uL Hgb (14.0-18.0) g/dL Hct (42.0-52.0) % MCV (80.0-94.0) fL MCH (27.0-31.0) pg MCHC (32.0-36.0) g/dL RDW (12.0-15.0) % Plt Count (130-450) 10^3/uL MPV (7.4-11.4) fL Neut # (Auto) (1.5-6.6) 10^3/uL Lymph # (Auto) (1.5-3.5) 10^3/uL Richardson # (Auto) (0.0-1.0) 10^3/uL Eos # (Auto) (0.0-0.7) 10^3/uL Baso # (Auto) (0.0-0.1) 10^3/uL Absolute Nucleated RBC x10^3/uL Nucleated RBC % /100WBC Sodium 141 (135-145) mmol/L Potassium 3.6 (3.5-4.5) mmol/L Chloride 111 (101-111) mmol/L Carbon Dioxide 23 (21-32) mmol/L Anion Gap 7.0 (6-13) BUN 24 H (6-20) mg/dL Creatinine 1.9 H (0.6-1.3) mg/dL Estimated GFR (MDRD) 36 L (>89) Glucose 160 H (74-104) mg/dL POC Whole Bld Glucose 175 H 157 H (70 - 100) mg/dL Calcium 9.0 (8.5-10.3) mg/dL C-Reactive Protein 12.1 H (<0.5) mg/dL 02/10/24 02/09/24 Range/Units 04:30 16:44 WBC 7.1 (4.8-10.8) x10^3/uL RBC 3.19 L (4.70-6.10) 10^6/uL Hgb 10.2 L (14.0-18.0) g/dL Hct 31.7 L (42.0-52.0) % MCV 99.4 H (80.0-94.0) fL MCH 32.0 H (27.0-31.0) pg MCHC 32.2 (32.0-36.0) g/dL RDW 12.4 (12.0-15.0) % Plt Count 318 (130-450) 10^3/uL MPV 8.7 (7.4-11.4) fL Neut # (Auto) 3.9 (1.5-6.6) 10^3/uL Lymph # (Auto) 1.8 (1.5-3.5) 10^3/uL Richardson # (Auto) 0.8 (0.0-1.0) 10^3/uL Eos # (Auto) 0.4 (0.0-0.7) 10^3/uL Baso # (Auto) 0.1 (0.0-0.1) 10^3/uL Absolute Nucleated RBC 0.00 x10^3/uL Nucleated RBC % 0.0 /100WBC Sodium (135-145) mmol/L Potassium (3.5-4.5) mmol/L Chloride (101-111) mmol/L Carbon Dioxide (21-32) mmol/L Anion Gap (6-13) BUN (6-20) mg/dL Creatinine (0.6-1.3) mg/dL Estimated GFR (MDRD) (>89) Glucose (74-104) mg/dL POC Whole Bld Glucose 185 H (70 - 100) mg/dL Calcium (8.5-10.3) mg/dL C-Reactive Protein (<0.5) mg/dL ABX Reporting Has patient been on IV antibiotics over the past 48 hours?: No Sepsis Event Note (H) - Evaluation Current Stage of Sepsis: Resolved Possible source of Sepsis: positive: Skin/soft tissue Assessment/Plan - Problem List (1) Diabetic infection of right foot Impression: He reports having a right foot wound ever since a bunion developed on the right lateral aspect of his foot approximately four months ago. It has been progressively worsening since then and in the past month it has become more of an open ulcer. Over the past week it has been erythematous and more painful, and he was prescribed Keflex on 02/27. The infection seemed to progress despite this and he was prescribed Bactrim 2 days ago and his symptoms continued to worsen. -MRI of the right foot is negative for osteomyelitis, but did show a fluid collection. -Blood cultures with Staph epidermidis (Methicillin-resistant/beta-lactamase positive). Outpatient wound culture growing MSSA. Operative wound culture growing Staph epidermidis. Operative anaerobic and fungal cultures pending. -Continue IV vancomycin. Originally on Zosyn, but changed to Ciprofloxacin on 02/06/24 given continued fevers as this will cover gram negatives as well as better cover staph epidermidis. -Orthopedic Surgery (Dr. John Saxena) consulted, appreciate assistance. Underwent I&D on 02/04/24. Will re-evaluate 02/07 to ensure he does not require repeat I&D. -Arterial duplex of right leg ;indicates occluded SFA with reconstitution distally via collaterals. Per discussion with orthopedic today no further surgery at this moment per Ortho will reevaluate in a couple days. On p.o. doxycycline and Flagyl, Anaerobic culture negative, will DC Flagyl, continue with p.o. doxycycline, continue PT OT, will have surgery reevaluate on Wednesday. (2) Bacteremia due to Staphylococcus epidermidis Impression: His blood culture from admission is growing gram-positive cocci in clusters with a PCR panel that is showing Staphylococcus epidermidis that carries the methicillin-resistant gene. -Continue contact precautions. -On IV vancomycin since admission. Switched Zosyn to Cipro 02/06/24 due to ongoing sepsis/fevers as Cipro can cover bacteremia better. -Repeat blood cultures 02/05/24 NGTD thus far. -Appears to be a true pathogenic staph epidermidis bacteremia as his operative foot cultures are growing the same bacteria. Negative blood culture on 02/05/2024 will continue Doxy for 14 days from this date follow-up CBC and inflammatory markers repeat blood culture negative. (3) Sepsis Impression: He met criteria for sepsis due to elevated white blood cell count along with tachycardia in the setting of a right diabetic foot infection. -Lactic acid is normal on presentation. On 02/06/24 he developed significant fevers, tachycardia and mild hypotension. Repeat lactic acid was negative, though he would meet criteria for severe sepsis on 02/06/24 due to confusion and SERENA. -off IV Vanco and on p.o. antibiotics monitor CBC anti-inflammatory markers -Received several liters of IV fluids yesterday. Will place on continuous ns IV fluids Qualifiers: Sepsis acute organ dysfunction status: without acute organ dysfunction (4) SERENA (acute kidney injury) Impression: His creatinine was normal on presentation but has been slowly increasing every day. Today it jumped from 1.0 to 1.7. This could be a combination of PAPA induced SERENA with contribution from vancomycin induced SERENA versus prerenal causes from sepsis/infection. -Discontinued lisinopril (last/first dose was 02/02). Pharmacy to monitor vancomycin trough levels and adjust vancomycin dosing as indicated. -Received 1 liter NS bolus plus 1 liter IV fluids over 8 hours on 02/04. Received another 2 liters on 02/05. -Renal ultrasound showed no hydronephrosis. FENA is 0.25% indicating pre-renal causes, likely from sepsis. CK normal. . Fena calculated at 0.25% consistent with prerenal,Continue with NS hydration monitor sodium Mild improvement in creatinine continue with IV hydration awaiting baseline creatinine level (5) Uncontrolled diabetes mellitus Impression: He has been prescribed metformin previously but had diarrhea with this. He was then prescribed Glimepiride, but he does not take this because he did not feel that this improved his glucose at all. He currently is not taking any medications for diabetes at this time. -A1c is 11%. -Continue Lantus (switched to 15 units SQ every afternoon and 10 units subcu every morning), Lispro 10 units TID with meals and SSI coverage. Adjust further if needed. -Will need to be discharged on insulin therapy. Will need diabetic/insulin teaching prior to discharge. Will also need [facility] make sure [facility]. Qualifiers: Diabetes mellitus type: type 2 Glycemic state: with hyperglycemia Qualified Code(s): E11.65 - Type 2 diabetes mellitus with hyperglycemia (6) Alcohol use disorder Impression: He drinks heavily at home and usually has a fifth of whiskey per day. -Received IV thiamine in the ED. Continue multivitamin with and PO thiamine. -Had been on Librium 25 mg TID since admission, but held this starting 02/06/24 due to lethargic status in the setting of sepsis and SERENA. Part of his lethargy was likely Gabapentin retention due to SERENA as well. -Monitor for other signs of withdrawal and order CIWA if they develop. (7) Renal mass Impression: Renal ultrasound shows a 2.3 cm exophytic cyst in the left superior pole of the kidney. -Encourage outpatient follow up with renal mass protocol CT vs MRI. Avoiding those at this time due to SERENA and other acute illnesses. (8) Hypertension Impression: He is not taking any medications for this currently. -Started lisinopril 10 mg daily 02/02, but held 02/03 due to OR. Discontinued due to SERENA but only received one dose on 02/02. -Can have as needed hydralazine if the blood pressure increases significantly. Coreg added for better blood pressure control (9) Peripheral neuropathy Impression: He has diabetic peripheral neuropathy in both of his lower extremities. -Holding home Gabapentin 300 mg QID due to lethargy and SERENA. (10) BPH (benign prostatic hyperplasia) Impression: He does not take any medication for this at this time. -Monitor for signs/symptoms of urinary retention. -Renal ultrasound shows no hydronephrosis or retention. (11) Tobacco use disorder Impression: Counseled on smoking cessation. -Continue Nicotine patch. DVTProphylaxis: Subcu heparin
[2024-02-10] MEDS: INSULIN GLARGINE-YFGN 300 UNIT/3 ML PEN SUBQ SCH (14:04)
--- NOTE | 2024-02-10 18:52 | PROVIDER PROGRESS NOTE ---
Subjective - Prog Note Date Prog Note Date: 02/10/24 Prog Note Time: 08:00 - Subjective Subjective: Pt is more alert today. Denies right foot pain. Denies F/C/NS/CP/SOB. Objective - Vital Signs/Intake & Output Vital Signs: Vital Signs x48h Temp Pulse Resp BP Pulse Ox 02/10/24 15:50 37.4 C 90 20 136/86 H 96 Intake & Output: Intake & Output 02/07/24 02/08/24 02/09/24 02/10/24 23:59 23:59 23:59 23:59 Intake Total 5521.667 3822.084 3879.166 2399.167 Output Total 3675 3300 3425 2250 Balance 1846.667 522.084 454.166 149.167 - Lab Results Fish Bones: 02/10/24 04:30 02/10/24 04:30 Other Labs: Lab Results x24hrs 02/10/24 02/10/24 02/10/24 Range/Units 16:42 11:36 07:50 WBC (4.8-10.8) x10^3/uL RBC (4.70-6.10) 10^6/uL Hgb (14.0-18.0) g/dL Hct (42.0-52.0) % MCV (80.0-94.0) fL MCH (27.0-31.0) pg MCHC (32.0-36.0) g/dL RDW (12.0-15.0) % Plt Count (130-450) 10^3/uL MPV (7.4-11.4) fL Neut # (Auto) (1.5-6.6) 10^3/uL Lymph # (Auto) (1.5-3.5) 10^3/uL Blackford # (Auto) (0.0-1.0) 10^3/uL Eos # (Auto) (0.0-0.7) 10^3/uL Baso # (Auto) (0.0-0.1) 10^3/uL Absolute Nucleated RBC x10^3/uL Nucleated RBC % /100WBC Sodium (135-145) mmol/L Potassium (3.5-4.5) mmol/L Chloride (101-111) mmol/L Carbon Dioxide (21-32) mmol/L Anion Gap (6-13) BUN (6-20) mg/dL Creatinine (0.6-1.3) mg/dL Estimated GFR (MDRD) (>89) Glucose (74-104) mg/dL POC Whole Bld Glucose 183 H 175 H 157 H (70 - 100) mg/dL Calcium (8.5-10.3) mg/dL C-Reactive Protein (<0.5) mg/dL 02/10/24 02/10/24 Range/Units 04:30 04:30 WBC 7.1 (4.8-10.8) x10^3/uL RBC 3.19 L (4.70-6.10) 10^6/uL Hgb 10.2 L (14.0-18.0) g/dL Hct 31.7 L (42.0-52.0) % MCV 99.4 H (80.0-94.0) fL MCH 32.0 H (27.0-31.0) pg MCHC 32.2 (32.0-36.0) g/dL RDW 12.4 (12.0-15.0) % Plt Count 318 (130-450) 10^3/uL MPV 8.7 (7.4-11.4) fL Neut # (Auto) 3.9 (1.5-6.6) 10^3/uL Lymph # (Auto) 1.8 (1.5-3.5) 10^3/uL Blackford # (Auto) 0.8 (0.0-1.0) 10^3/uL Eos # (Auto) 0.4 (0.0-0.7) 10^3/uL Baso # (Auto) 0.1 (0.0-0.1) 10^3/uL Absolute Nucleated RBC 0.00 x10^3/uL Nucleated RBC % 0.0 /100WBC Sodium 141 (135-145) mmol/L Potassium 3.6 (3.5-4.5) mmol/L Chloride 111 (101-111) mmol/L Carbon Dioxide 23 (21-32) mmol/L Anion Gap 7.0 (6-13) BUN 24 H (6-20) mg/dL Creatinine 1.9 H (0.6-1.3) mg/dL Estimated GFR (MDRD) 36 L (>89) Glucose 160 H (74-104) mg/dL POC Whole Bld Glucose (70 - 100) mg/dL Calcium 9.0 (8.5-10.3) mg/dL C-Reactive Protein 12.1 H (<0.5) mg/dL - Other Results/Comments Other Results/Comments: RIGHT foot: Soft Dressing in place 3 cm eshar on the dorsum of the foot over the 4th ray Erythema about the known lateral foot ulcer and dorsal eschar however this continues to improve Sutures in place Small amounts of serosang drainage. No purulence. SILT s/s/sp/dp/t however diminished throughout Fires EHL/FHL/TA/GS/PER Slow cap refill to all digits. IMAGING: No New Imaging Sepsis Event Note (H) - Evaluation Current Stage of Sepsis: Resolved Possible source of Sepsis: positive: Skin/soft tissue Assessment/Plan - Problem List (1) Diabetic infection of right foot Impression: 58yo M s/p Right foot I&D for lateral foot ulcer and dorsal foot abscess on 02/04/24. He was admitted for sepsis and was found to have positive blood cultures (methicillin resistant staph epidermis) and his intraopetative right foot cultures had coag-negative staph. He has been transitioned to Cipro based on sensitivities. He continues to be tachycardic at times however he has been afebrile. Labs continued to improve with WBC at 7.1 and CRP down from 29.1 to 12.1. Based on his clinical exam, he does not require a return to the OR day for a repeat wash out. Ortho will continue to monitor. -Cleared to eat (NPO at 0001 on 02/12/24 for potential repeat I&D) -Non-weight bearing Right lower extremity -Strict elevation of right foot higher than his heart -Leave dressing in place -repeat CRP and CBC in the morning of 02/12/24 -Continue antibiotics -DVT prophylaxis per primary team -Will require wound care and wheelchair upon discharge John Saxena MD Ortho [phone] cell
[2024-02-11 05:30] LABS: CALCIUM 8.8 mg/dL (8.5-10.3); CREATININE 1.8 mg/dL (0.6-1.3); POTASSIUM 3.6 mmol/L (3.5-4.5)
--- NOTE | 2024-02-11 12:24 | PROVIDER PROGRESS NOTE ---
Subjective - Prog Note Date Prog Note Date: 02/11/24 Prog Note Time: 12:20 - Subjective Subjective: Patient supine in bed less pain today Ordonez is to be held, positive bowel movement Current Medications - Current Medications Current Medications: Active Medications Acetaminophen (Acetaminophen 325 Mg Tablet) 650 mg PO Q4HR PRN PRN Reason: Pain 1 to 4, or Fever Last Admin: 02/10/24 23:57 Dose: 650 mg Acetaminophen (Acetaminophen 650 Mg Supp) 650 mg SD Q6HR PRN PRN Reason: Pain or Fever > 38C (100.4F) Last Admin: 02/06/24 13:27 Dose: 650 mg Ascorbic Acid (Ascorbic Acid 500 Mg Tablet) 500 mg PO DAILY [facility] Last Admin: 02/11/24 08:16 Dose: 500 mg Carvedilol (Carvedilol 3.125 Mg Tablet) 3.125 mg PO BID [facility] Last Admin: 02/11/24 08:16 Dose: 3.125 mg Docusate Sodium (Docusate Sodium 100 Mg Capsule) 100 mg PO BID PRN PRN Reason: Constipation Doxycycline Hyclate (Doxycycline 100 Mg Tablet) 100 mg PO BID [facility] Last Admin: 02/11/24 08:16 Dose: 100 mg Ferrous Sulfate (Ferrous Sulfate 325 Mg Tablet) 325 mg PO DAILYWM [facility] Last Admin: 02/11/24 08:16 Dose: 325 mg Heparin Sodium (Porcine) (Heparin 5,000 Unit/Ml Vial) 5,000 unit SUBQ BID [facility] Last Admin: 02/11/24 08:18 Dose: 5,000 unit Sodium Chloride (Normal Saline 0.9%) 1,000 mls @ 125 mls/hr IV .Q8H [facility] Last Admin: 02/11/24 12:10 Dose: 125 mls/hr Insulin Glargine-yfgn (Insulin Glargine-Yfgn 300 Unit/3 Ml Pen) 15 unit SUBQ QPM [facility] Last Admin: 02/10/24 21:45 Dose: 15 unit Insulin Glargine-yfgn (Insulin Glargine-Yfgn 300 Unit/3 Ml Pen) 10 unit SUBQ DAILY [facility] Last Admin: 02/11/24 08:19 Dose: 10 unit Insulin Human Lispro (Insulin Lispro 300 Unit/3 Ml Pen) 1 - 9 unit SUBQ 0800,1200,1700,2100 [facility]; Protocol Last Admin: 02/11/24 12:08 Dose: 1 unit Insulin Human Lispro (Insulin Lispro 300 Unit/3 Ml Pen) 10 unit SUBQ TIDWM [facility]; Protocol Last Admin: 02/11/24 08:19 Dose: 10 unit Melatonin (Melatonin 3 Mg Tablet) 6 mg PO QPM PRN PRN Reason: Insomnia Ondansetron HCl (Ondansetron Odt 4 Mg Tablet) 4 mg TL Q6HR PRN PRN Reason: Nausea / Vomiting Ondansetron HCl (Ondansetron 4 Mg/2 Ml Vial) 4 mg IVP Q6HR PRN PRN Reason: Nausea / Vomiting Oxycodone HCl (Oxycodone 5 Mg Tablet) 10 mg PO Q4HR PRN PRN Reason: Pain 8 to 10 Last Admin: 02/11/24 05:40 Dose: 10 mg Oxycodone HCl (Oxycodone 5 Mg Tablet) 5 mg PO Q4HR PRN PRN Reason: Pain 5 to 7 Last Admin: 02/11/24 10:45 Dose: 5 mg Polyethylene Glycol (Polyethylene Glycol 3350 17 Gm Packet) 17 gm PO DAILY [facility] Last Admin: 02/11/24 10:26 Dose: Not Given Multivit/Folic Acid/Iron ( Vitamin Tablet) 1 tab PO DAILYWM [facility] Last Admin: 02/11/24 12:07 Dose: 1 tab Senna (Senna 8.6 Mg Tablet) 8.6 mg PO DAILY [facility] Last Admin: 02/11/24 10:26 Dose: Not Given Sodium Chloride (Sodium Chloride Flush 0.9% 10 Ml Syringe) 10 ml IVP PRN PRN PRN Reason: NEEDED PER PROVIDER ORDERS Last Admin: 02/07/24 06:49 Dose: 10 ml Sodium Chloride (Sodium Chloride Flush 0.9% 10 Ml Syringe) 10 ml IVP 0100,0900,1700 [facility] Last Admin: 02/11/24 10:27 Dose: Not Given Thiamine HCl (Thiamine 100 Mg Tablet) 100 mg PO DAILY [facility] Last Admin: 02/11/24 08:16 Dose: 100 mg Diclofenac Submicronized [Diclofenac] 75 mg PO DAILY 02/02/24 Gabapentin [Gabapentin ER] 300 mg PO QID 02/02/24 Objective - Vital Signs/Intake & Output Reviewed Vital Signs: Yes Vital Signs: Vital Signs x48h Temp Pulse Resp BP Pulse Ox 09/13/24 07:54 37.1 C 87 18 147/83 H 94 Intake & Output: Intake & Output 02/08/24 02/09/24 02/10/24 02/11/24 23:59 23:59 23:59 23:59 Intake Total 3822.084 3879.166 3601.667 2053.333 Output Total 3300 3425 2250 1900 Balance 522.084 184.691 8168.667 153.333 - Objective General Appearance: positive: No acute distress Eyes Bilateral: positive: EOMI ENT: positive: Pharynx nml Neck: positive: Trachea midline Respiratory: positive: No respiratory distress, Breath sounds nml Cardiovascular: positive: Regular rate & rhythm, No murmur Abdomen: positive: Non-tender, Nml bowel sounds, No distention. negative: Guarding, Rebound Skin: positive: Warm Extremities: positive: No pedal edema Neurologic/Psychiatric: positive: Oriented x3 - Lab Results Fish Bones: 02/10/24 04:30 02/11/24 04:40 Other Labs: Lab Results x24hrs 02/11/24 02/11/24 02/11/24 Range/Units 12:04 07:57 04:40 Sodium 142 (135-145) mmol/L Potassium 3.6 (3.5-4.5) mmol/L Chloride 111 (101-111) mmol/L Carbon Dioxide 24 (21-32) mmol/L Anion Gap 7.0 (6-13) BUN 22 H (6-20) mg/dL Creatinine 1.8 H (0.6-1.3) mg/dL Estimated GFR (MDRD) 39 L (>89) Glucose 126 H (74-104) mg/dL POC Whole Bld Glucose 148 H 126 H (70 - 100) mg/dL Calcium 8.8 (8.5-10.3) mg/dL 02/10/24 Range/Units 16:42 Sodium (135-145) mmol/L Potassium (3.5-4.5) mmol/L Chloride (101-111) mmol/L Carbon Dioxide (21-32) mmol/L Anion Gap (6-13) BUN (6-20) mg/dL Creatinine (0.6-1.3) mg/dL Estimated GFR (MDRD) (>89) Glucose (74-104) mg/dL POC Whole Bld Glucose 183 H (70 - 100) mg/dL Calcium (8.5-10.3) mg/dL ABX Reporting Has patient been on IV antibiotics over the past 48 hours?: No Sepsis Event Note (H) - Evaluation Current Stage of Sepsis: Resolved Possible source of Sepsis: positive: Skin/soft tissue Assessment/Plan - Problem List (1) Diabetic infection of right foot Impression: He reports having a right foot wound ever since a bunion developed on the right lateral aspect of his foot approximately four months ago. It has been progressively worsening since then and in the past month it has become more of an open ulcer. Over the past week it has been erythematous and more painful, and he was prescribed Keflex on 02/27. The infection seemed to progress despite this and he was prescribed Bactrim 2 days ago and his symptoms continued to worsen. -MRI of the right foot is negative for osteomyelitis, but did show a fluid collection. -Blood cultures with Staph epidermidis (Methicillin-resistant/beta-lactamase positive). Outpatient wound culture growing MSSA. Operative wound culture growing Staph epidermidis. Operative anaerobic and fungal cultures pending. -Continue IV vancomycin. Originally on Zosyn, but changed to Ciprofloxacin on 02/06/24 given continued fevers as this will cover gram negatives as well as better cover staph epidermidis. -Orthopedic Surgery (Dr. John Saxena) consulted, appreciate assistance. Underwent I&D on 02/04/24. Will re-evaluate 02/07 to ensure he does not require repeat I&D. -Arterial duplex of right leg ;indicates occluded SFA with reconstitution distally via collaterals. Per discussion with orthopedic today no further surgery at this moment per Ortho will reevaluate in a couple days. On p.o. doxycycline and Flagyl, Anaerobic culture negative, will DC Flagyl, continue with p.o. doxycycline, continue PT OT, will have surgery reevaluate on Wednesday.Will decrease pain meds by half as discussed with patient, remove Ordonez catheter, Will obtain a.m. CBC and inflammatory markers (2) Bacteremia due to Staphylococcus epidermidis Impression: His blood culture from admission is growing gram-positive cocci in clusters with a PCR panel that is showing Staphylococcus epidermidis that carries the methi cillin-resistant gene. -Continue contact precautions. -On IV vancomycin since admission. Switched Zosyn to Cipro 02/06/24 due to ongoing sepsis/fevers as Cipro can cover bacteremia better. -Repeat blood cultures 02/05/24 NGTD thus far. -Appears to be a true pathogenic staph epidermidis bacteremia as his operative foot cultures are growing the same bacteria. Negative blood culture on 02/05/2024 will continue Doxy for 14 days from this date follow-up CBC and inflammatory markers repeat blood culture negative. (3) Sepsis Impression: He met criteria for sepsis due to elevated white blood cell count along with tachycardia in the setting of a right diabetic foot infection. -Lactic acid is normal on presentation. On 02/06/24 he developed significant fevers, tachycardia and mild hypotension. Repeat lactic acid was negative, though he would meet criteria for severe sepsis on 02/06/24 due to confusion and SERENA. -off IV Vanco and on p.o. antibiotics monitor CBC anti-inflammatory markers -Received several liters of IV fluids yesterday. Will place on continuous ns IV fluids Qualifiers: Sepsis acute organ dysfunction status: without acute organ dysfunction (4) SERENA (acute kidney injury) Impression: His creatinine was normal on presentation but has been slowly increasing every day. Today it jumped from 1.0 to 1.7. This could be a combination of PAPA induced SERENA with contribution from vancomycin induced SERENA versus prerenal causes from sepsis/infection. -Discontinued lisinopril (last/first dose was 02/02). Pharmacy to monitor vancomycin trough levels and adjust vancomycin dosing as indicated. -Received 1 liter NS bolus plus 1 liter IV fluids over 8 hours on 02/04. Received another 2 liters on 02/05. -Renal ultrasound showed no hydronephrosis. FENA is 0.25% indicating pre-renal causes, likely from sepsis. CK normal. . Fena calculated at 0.25% consistent with prerenal,Continue with NS hydration monitor sodium Mild improvement in creatinine continue with IV hydration awaiting baseline c reatinine level Creatinine downtrending to 1.8 continue IV hydration (5) Uncontrolled diabetes mellitus Impression: He has been prescribed metformin previously but had diarrhea with this. He was then prescribed Glimepiride, but he does not take this because he did not feel that this improved his glucose at all. He currently is not taking any medications for diabetes at this time. -A1c is 11%. -Continue Lantus (switched to 15 units SQ every afternoon and 10 units subcu every morning), Lispro 10 units TID with meals and SSI coverage. Adjust further if needed. -Will need to be discharged on insulin therapy. Will need diabetic/insulin teaching prior to discharge. Will also need to make sure [facility] appropriately. Qualifiers: Diabetes mellitus type: type 2 Glycemic state: with hyperglycemia Qualified Code(s): E11.65 - Type 2 diabetes mellitus with hyperglycemia (6) Alcohol use disorder Impression: He drinks heavily at home and usually has a fifth of whiskey per day. -Received IV thiamine in the ED. Continue multivitamin with and PO thiamine. -Had been on Librium 25 mg TID since admission, but held this starting 02/06/24 due to lethargic status in the setting of sepsis and SERENA. Part of his lethargy was likely Gabapentin retention due to SERENA as well. -Monitor for other signs of withdrawal and order CIWA if they develop. (7) Renal mass Impression: Renal ultrasound shows a 2.3 cm exophytic cyst in the left superior pole of the kidney. -Encourage outpatient follow up with renal mass protocol CT vs MRI. Avoiding those at this time due to SERENA and other acute illnesses. (8) Hypertension Impression: He is not taking any medications for this currently. -Started lisinopril 10 mg daily 02/02, but held 02/03 due to OR. Discontinued due to SERENA but only received one dose on 02/02. -Can have as needed hydralazine if the blood pressure increases significantly. Coreg added for better blood pressure control (9) Peripheral neuropathy Impression: He has diabetic peripheral neuropathy in both of his lower extremities. -Holding home Gabapentin 300 mg QID due to lethargy and SERENA. (10) BPH (benign prostatic hyperplasia) Impression: He does not take any medication for this at this time. -Monitor for signs/symptoms of urinary retention. -Renal ultrasound shows no hydronephrosis or retention. (11) Tobacco use disorder Impression: Counseled on smoking cessation. -Continue Nicotine patch. DVTProphylaxis: Subcu heparin
[2024-02-11] MEDS: oxyCODONE 5 MG TABLET PO PRN (16:50)
[2024-02-11] MEDS: ACETAMINOPHEN 500 MG TABLET PO PRN (20:30)
[2024-02-12] MEDS: ZINC OXIDE 20% OINT 30 GM TUBE TOP PRN (00:16)
[2024-02-12 05:46] LABS: BASOPHILS # (AUTO) 0.1 10^3/uL (0.0-0.1); BASOPHILS % (AUTO) 1.3 %; EOSINOPHILS # (AUTO) 0.5 10^3/uL (0.0-0.7); EOSINOPHILS % (AUTO) 5.2 %; HCT - HEMATOCRIT 33.4 % (42.0-52.0); HGB - HEMOGLOBIN 10.7 g/dL (14.0-18.0); LYMPHOCYTES % (AUTO) 21.7 %; MEAN CORPUSCULAR HEMOGLOBIN 31.9 pg (27.0-31.0); MEAN CORPUSCULAR VOLUME 99.7 fL (80.0-94.0); MEAN PLATELET VOLUME 8.6 fL (7.4-11.4); MONOCYTES # (AUTO) 0.9 10^3/uL (0.0-1.0); MONOCYTES % (AUTO) 9.9 %; NEUTROPHILS # (AUTO) 5.5 10^3/uL (1.5-6.6); NEUTROPHILS % (AUTO) 61.1 %; PLT - PLATELET COUNT 348 10^3/uL (130-450); RED BLOOD COUNT 3.35 10^6/uL (4.70-6.10); RED CELL DISTRIBUTION WIDTH 12.4 % (12.0-15.0)
[2024-02-12 06:00] LABS: CALCIUM 8.8 mg/dL (8.5-10.3); CREATININE 1.7 mg/dL (0.6-1.3); POTASSIUM 3.6 mmol/L (3.5-4.5)
--- NOTE | 2024-02-12 08:35 | PROVIDER PROGRESS NOTE ---
Subjective - Prog Note Date Prog Note Date: 02/12/24 Prog Note Time: 08:30 - Subjective Pt reports feeling: No change Subjective: Pt is alert and appropriately answers questions. Reports that he is upset about the changes in his narcotics. Reports baseline pain on the dorsum of the mid foot. Denies F/C/HS/CP/SOB. Objective - Vital Signs/Intake & Output Vital Signs: Vital Signs x48h Temp Pulse Resp BP Pulse Ox 02/12/24 07:48 37.6 C 93 18 147/92 H 93 Intake & Output: Intake & Output 02/09/24 02/10/24 02/11/24 02/12/24 23:59 23:59 23:59 23:59 Intake Total 3879.166 3601.667 3673.333 935.417 Output Total 3425 2250 2250 300 Balance 216.385 7710.667 1423.333 635.417 - Lab Results Fish Bones: 02/12/24 05:18 02/12/24 05:18 Other Labs: Lab Results x24hrs 02/12/24 02/12/24 02/12/24 Range/Units 05:18 05:18 05:18 WBC 9.0 (4.8-10.8) x10^3/uL RBC 3.35 L (4.70-6.10) 10^6/uL Hgb 10.7 L (14.0-18.0) g/dL Hct 33.4 L (42.0-52.0) % MCV 99.7 H (80.0-94.0) fL MCH 31.9 H (27.0-31.0) pg MCHC 32.0 (32.0-36.0) g/dL RDW 12.4 (12.0-15.0) % Plt Count 348 (130-450) 10^3/uL MPV 8.6 (7.4-11.4) fL Neut # (Auto) 5.5 (1.5-6.6) 10^3/uL Lymph # (Auto) 2.0 (1.5-3.5) 10^3/uL Sandoval # (Auto) 0.9 (0.0-1.0) 10^3/uL Eos # (Auto) 0.5 (0.0-0.7) 10^3/uL Baso # (Auto) 0.1 (0.0-0.1) 10^3/uL Absolute Nucleated RBC 0.00 x10^3/uL Nucleated RBC % 0.0 /100WBC Sodium 140 (135-145) mmol/L Potassium 3.6 (3.5-4.5) mmol/L Chloride 110 (101-111) mmol/L Carbon Dioxide 24 (21-32) mmol/L Anion Gap 6.0 (6-13) BUN 23 H (6-20) mg/dL Creatinine 1.7 H (0.6-1.3) mg/dL Estimated GFR (MDRD) 41 L (>89) Glucose 135 H (74-104) mg/dL POC Whole Bld Glucose (70 - 100) mg/dL Calcium 8.8 (8.5-10.3) mg/dL C-Reactive Protein 6.6 H (<0.5) mg/dL 02/11/24 Range/Units 12:04 WBC (4.8-10.8) x10^3/uL RBC (4.70-6.10) 10^6/uL Hgb (14.0-18.0) g/dL Hct (42.0-52.0) % MCV (80.0-94.0) fL MCH (27.0-31.0) pg MCHC (32.0-36.0) g/dL RDW (12.0-15.0) % Plt Count (130-450) 10^3/uL MPV (7.4-11.4) fL Neut # (Auto) (1.5-6.6) 10^3/uL Lymph # (Auto) (1.5-3.5) 10^3/uL Sandoval # (Auto) (0.0-1.0) 10^3/uL Eos # (Auto) (0.0-0.7) 10^3/uL Baso # (Auto) (0.0-0.1) 10^3/uL Absolute Nucleated RBC x10^3/uL Nucleated RBC % /100WBC Sodium (135-145) mmol/L Potassium (3.5-4.5) mmol/L Chloride (101-111) mmol/L Carbon Dioxide (21-32) mmol/L Anion Gap (6-13) BUN (6-20) mg/dL Creatinine (0.6-1.3) mg/dL Estimated GFR (MDRD) (>89) Glucose (74-104) mg/dL POC Whole Bld Glucose 148 H (70 - 100) mg/dL Calcium (8.5-10.3) mg/dL C-Reactive Protein (<0.5) mg/dL - Other Results/Comments Other Results/Comments: RIGHT foot: Soft Dressing in place No pain with deep palpation throughout the entire foot 3 cm eshar on the dorsum of the foot over the 4th ray Erythema about the known lateral foot ulcer and dorsal eschar however this continues to improve Sutures in place Small amounts of serosang drainage. No purulence. SILT s/s/sp/dp/t however diminished throughout Fires EHL/FHL/TA/GS/PER Slow cap refill to all digits. IMAGING: No New Imaging Sepsis Event Note (H) - Evaluation Current Stage of Sepsis: Resolved Possible source of Sepsis: positive: Skin/soft tissue Assessment/Plan - Problem List (1) Diabetic infection of right foot Impression: 58yo M s/p Right foot I&D for lateral foot ulcer and dorsal foot abscess on 02/04/24. He was admitted for sepsis and was found to have positive blood cultures (methicillin resistant staph epidermis) and his intraopetative right foot cultures had coag-negative staph. He has been transitioned to oral antibiotics and had a decrease in his narcotics. He is sitting comfortably in the bed and has no increased pain with deep palpation of the foot. He continues to be tachycardic at times however he has been afebrile. Labs continued to improve with CRP down from 29.1 to 6.6. Based on his clinical exam, he does not require a return to the OR day for a repeat wash out. Agree with hospitalists plan for discharge on Wednesday. -Cleared to eat -Non-weight bearing Right lower extremity -Strict elevation of right foot higher than his heart -Leave dressing in place - if it falls off, please redress with clean xeroform, 4x4s, webrill and wade wrap) -Continue antibiotics -DVT prophylaxis per primary team -[facility] and [facility] upon discharge John Saxena MD Ortho [phone] cell
--- NOTE | 2024-02-12 10:08 | PROVIDER PROGRESS NOTE ---
Subjective - Prog Note Date Prog Note Date: 02/12/24 Prog Note Time: 10:05 - Subjective Subjective: Patient supine in bed no acute distress currently not complaining of pain. Creatinine improving on current IV hydration rate. Current Medications - Current Medications Current Medications: Active Medications Acetaminophen (Acetaminophen 650 Mg Supp) 650 mg MA Q6HR PRN PRN Reason: Pain or Fever > 38C (100.4F) Last Admin: 02/06/24 13:27 Dose: 650 mg Acetaminophen (Acetaminophen 500 Mg Tablet) 500 mg PO Q4HR PRN PRN Reason: Pain or Fever > 38C (100.4F) Last Admin: 02/12/24 01:09 Dose: 500 mg Ascorbic Acid (Ascorbic Acid 500 Mg Tablet) 500 mg PO DAILY [facility] Last Admin: 02/12/24 08:11 Dose: 500 mg Carvedilol (Carvedilol 3.125 Mg Tablet) 3.125 mg PO BID [facility] Last Admin: 02/12/24 08:12 Dose: 3.125 mg Docusate Sodium (Docusate Sodium 100 Mg Capsule) 100 mg PO BID PRN PRN Reason: Constipation Doxycycline Hyclate (Doxycycline 100 Mg Tablet) 100 mg PO BID [facility] Last Admin: 02/12/24 08:11 Dose: 100 mg Ferrous Sulfate (Ferrous Sulfate 325 Mg Tablet) 325 mg PO DAILYWM [facility] Last Admin: 02/12/24 08:11 Dose: 325 mg Heparin Sodium (Porcine) (Heparin 5,000 Unit/Ml Vial) 5,000 unit SUBQ BID [facility] Last Admin: 02/12/24 08:17 Dose: 5,000 unit Sodium Chloride (Normal Saline 0.9%) 1,000 mls @ 125 mls/hr IV .Q8H [facility] Last Admin: 02/12/24 04:04 Dose: 125 mls/hr Insulin Glargine-yfgn (Insulin Glargine-Yfgn 300 Unit/3 Ml Pen) 15 unit SUBQ QPM [facility] Last Admin: 02/11/24 20:38 Dose: 15 unit Insulin Glargine-yfgn (Insulin Glargine-Yfgn 300 Unit/3 Ml Pen) 10 unit SUBQ DAILY [facility] Last Admin: 02/12/24 08:16 Dose: 10 unit Insulin Human Lispro (Insulin Lispro 300 Unit/3 Ml Pen) 1 - 9 unit SUBQ 0800,1200,1700,2100 [facility]; Protocol Last Admin: 02/12/24 08:13 Dose: Not Given Insulin Human Lispro (Insulin Lispro 300 Unit/3 Ml Pen) 10 unit SUBQ TIDWM [facility]; Protocol Last Admin: 02/12/24 08:16 Dose: 10 unit Melatonin (Melatonin 3 Mg Tablet) 6 mg PO QPM PRN PRN Reason: Insomnia Multi-Ingredient Ointment (Zinc Oxide 20% Oint 30 Gm Tube) 1 applic TOP PRN PRN PRN Reason: Skin Care Last Admin: 02/12/24 00:16 Dose: 1 applic Ondansetron HCl (Ondansetron Odt 4 Mg Tablet) 4 mg TL Q6HR PRN PRN Reason: Nausea / Vomiting Ondansetron HCl (Ondansetron 4 Mg/2 Ml Vial) 4 mg IVP Q6HR PRN PRN Reason: Nausea / Vomiting Oxycodone HCl (Oxycodone 5 Mg Tablet) 5 mg PO Q8H PRN PRN Reason: Moderate Pain (Level 4-6) Last Admin: 02/12/24 01:10 Dose: 5 mg Polyethylene Glycol (Polyethylene Glycol 3350 17 Gm Packet) 17 gm PO DAILY [facility] Last Admin: 02/12/24 08:13 Dose: Not Given Multivit/Folic Acid/Iron ( Vitamin Tablet) 1 tab PO DAILYWM [facility] Last Admin: 02/12/24 08:11 Dose: 1 tab Senna (Senna 8.6 Mg Tablet) 8.6 mg PO DAILY [facility] Last Admin: 02/12/24 08:13 Dose: Not Given Sodium Chloride (Sodium Chloride Flush 0.9% 10 Ml Syringe) 10 ml IVP PRN PRN PRN Reason: NEEDED PER PROVIDER ORDERS Last Admin: 02/07/24 06:49 Dose: 10 ml Sodium Chloride (Sodium Chloride Flush 0.9% 10 Ml Syringe) 10 ml IVP 0100,0900,1700 [facility] Last Admin: 02/12/24 08:14 Dose: Not Given Thiamine HCl (Thiamine 100 Mg Tablet) 100 mg PO DAILY [facility] Last Admin: 02/12/24 08:11 Dose: 100 mg Diclofenac Submicronized [Diclofenac] 75 mg PO DAILY 02/02/24 Gabapentin [Gabapentin ER] 300 mg PO QID 02/02/24 Objective - Vital Signs/Intake & Output Reviewed Vital Signs: Yes Vital Signs: Vital Signs x48h Temp Pulse Resp BP Pulse Ox 02/12/24 07:48 37.6 C 93 18 147/92 H 93 Intake & Output: Intake & Output 02/09/24 02/10/24 02/11/24 02/12/24 23:59 23:59 23:59 23:59 Intake Total 3879.166 3601.667 3673.333 935.417 Output Total 3425 2250 2250 500 Balance 333.536 8219.667 1423.333 435.417 - Objective General Appearance: positive: No acute distress Eyes Bilateral: positive: PERRL ENT: positive: No signs of dehydration Neck: positive: Trachea midline Respiratory: positive: No respiratory distress, Breath sounds nml Cardiovascular: positive: Regular rate & rhythm, No murmur Abdomen: positive: Non-tender, Nml bowel sounds, No distention. negative: Guarding, Rebound Skin: positive: Warm Extremities: positive: No pedal edema Neurologic/Psychiatric: positive: Oriented x3 - Lab Results Fish Bones: 02/12/24 05:18 02/12/24 05:18 Other Labs: Lab Results x24hrs 02/12/24 02/12/24 02/12/24 Range/Units 05:18 05:18 05:18 WBC 9.0 (4.8-10.8) x10^3/uL RBC 3.35 L (4.70-6.10) 10^6/uL Hgb 10.7 L (14.0-18.0) g/dL Hct 33.4 L (42.0-52.0) % MCV 99.7 H (80.0-94.0) fL MCH 31.9 H (27.0-31.0) pg MCHC 32.0 (32.0-36.0) g/dL RDW 12.4 (12.0-15.0) % Plt Count 348 (130-450) 10^3/uL MPV 8.6 (7.4-11.4) fL Neut # (Auto) 5.5 (1.5-6.6) 10^3/uL Lymph # (Auto) 2.0 (1.5-3.5) 10^3/uL [place] # (Auto) 0.9 (0.0-1.0) 10^3/uL Eos # (Auto) 0.5 (0.0-0.7) 10^3/uL Baso # (Auto) 0.1 (0.0-0.1) 10^3/uL Absolute Nucleated RBC 0.00 x10^3/uL Nucleated RBC % 0.0 /100WBC Sodium 140 (135-145) mmol/L Potassium 3.6 (3.5-4.5) mmol/L Chloride 110 (101-111) mmol/L Carbon Dioxide 24 (21-32) mmol/L Anion Gap 6.0 (6-13) BUN 23 H (6-20) mg/dL Creatinine 1.7 H (0.6-1.3) mg/dL Estimated GFR (MDRD) 41 L (>89) Glucose 135 H (74-104) mg/dL POC Whole Bld Glucose (70 - 100) mg/dL Calcium 8.8 (8.5-10.3) mg/dL C-Reactive Protein 6.6 H (<0.5) mg/dL 02/11/24 Range/Units 12:04 WBC (4.8-10.8) x10^3/uL RBC (4.70-6.10) 10^6/uL Hgb (14.0-18.0) g/dL Hct (42.0-52.0) % MCV (80.0-94.0) fL MCH (27.0-31.0) pg MCHC (32.0-36.0) g/dL RDW (12.0-15.0) % Plt Count (130-450) 10^3/uL MPV (7.4-11.4) fL Neut # (Auto) (1.5-6.6) 10^3/uL Lymph # (Auto) (1.5-3.5) 10^3/uL [place] # (Auto) (0.0-1.0) 10^3/uL Eos # (Auto) (0.0-0.7) 10^3/uL Baso # (Auto) (0.0-0.1) 10^3/uL Absolute Nucleated RBC x10^3/uL Nucleated RBC % /100WBC Sodium (135-145) mmol/L Potassium (3.5-4.5) mmol/L Chloride (101-111) mmol/L Carbon Dioxide (21-32) mmol/L Anion Gap (6-13) BUN (6-20) mg/dL Creatinine (0.6-1.3) mg/dL Estimated GFR (MDRD) (>89) Glucose (74-104) mg/dL POC Whole Bld Glucose 148 H (70 - 100) mg/dL Calcium (8.5-10.3) mg/dL C-Reactive Protein (<0.5) mg/dL ABX Reporting Has patient been on IV antibiotics over the past 48 hours?: No Sepsis Event Note (H) - Evaluation Current Stage of Sepsis: Resolved Possible source of Sepsis: positive: Skin/soft tissue Assessment/Plan - Problem List (1) Diabetic infection of right foot Impression: He reports having a right foot wound ever since a bunion developed on the right lateral aspect of his foot approximately four months ago. It has been progressively worsening since then and in the past month it has become more of an open ulcer. Over the past week it has been erythematous and more painful, and he was prescribed Keflex on 02/27. The infection seemed to progress despite this and he was prescribed Bactrim 2 days ago and his symptoms continued to worsen. -MRI of the right foot is negative for osteomyelitis, but did show a fluid collection. -Blood cultures with Staph epidermidis (Methicillin-resistant/beta-lactamase positive). Outpatient wound culture growing MSSA. Operative wound culture growing Staph epidermidis. Operative anaerobic and fungal cultures pending. -Continue IV vancomycin. Originally on Zosyn, but changed to Ciprofloxacin on 02/06/24 given continued fevers as this will cover gram negatives as well as better cover staph epidermidis. -Orthopedic Surgery (Dr. John Saxena) consulted, appreciate assistance. Underwent I&D on 02/04/24. Will re-evaluate 02/07 to ensure he does not require repeat I&D. -Arterial duplex of right leg ;indicates occluded SFA with reconstitution distally via collaterals. Per discussion with orthopedic today no further surgery at this moment per Ortho will reevaluate in a couple days. On p.o. doxycycline and Flagyl, Anaerobic culture negative, will DC Flagyl, continue with p.o. doxycycline, continue PT OT, will have surgery reevaluate on Wednesday.Will decrease pain meds by half as discussed with patient, remove Ordonez catheter, Will obtain a.m. CBC and inflammatory markers CRP downtrending, no leukocytosis, afebrile will continue p.o. doxycycline (2) Bacteremia due to Staphylococcus epidermidis Impression: His blood culture from admission is growing gram-positive cocci in clusters with a PCR panel that is showing Staphylococcus epidermidis that carries the methicillin-resistant gene. -Continue contact precautions. -On IV vancomycin since admission. Switched Zosyn to Cipro 02/06/24 due to ongoing sepsis/fevers as Cipro can cover bacteremia better. -Repeat blood cultures 02/05/24 NGTD thus far. -Appears to be a true pathogenic staph epidermidis bacteremia as his operative f oot cultures are growing the same bacteria. Negative blood culture on 02/05/2024 will continue Doxy for 14 days from this date follow-up CBC and inflammatory markers repeat blood culture negative. (3) Sepsis Impression: He met criteria for sepsis due to elevated white blood cell count along with tachycardia in the setting of a right diabetic foot infection. -Lactic acid is normal on presentation. On 02/06/24 he developed significant fevers, tachycardia and mild hypotension. Repeat lactic acid was negative, though he would meet criteria for severe sepsis on 02/06/24 due to confusion and SERENA. -off IV Vanco and on p.o. antibiotics monitor CBC anti-inflammatory markers -Received several liters of IV fluids yesterday. Will place on continuous ns IV fluids Qualifiers: Sepsis acute organ dysfunction status: without acute organ dysfunction (4) SEERNA (acute kidney injury) Impression: His creatinine was normal on presentation but has been slowly increasing every day. Today it jumped from 1.0 to 1.7. This could be a combination of PAPA induced SERENA with contribution from vancomycin induced SERENA versus prerenal causes from sepsis/infection. -Discontinued lisinopril (last/first dose was 02/02). Pharmacy to monitor vancomycin trough levels and adjust vancomycin dosing as indicated. -Received 1 liter NS bolus plus 1 liter IV fluids over 8 hours on 02/04. Received another 2 liters on 02/05. -Renal ultrasound showed no hydronephrosis. FENA is 0.25% indicating pre-renal causes, likely from sepsis. CK normal. . Fena calculated at 0.25% consistent with prerenal,Continue with NS hydration monitor sodium Mild improvement in creatinine continue with IV hydration awaiting baseline creatinine level Creatinine downtrending to 1.7 continue IV hydration (5) Uncontrolled diabetes mellitus Impression: He has been prescribed metformin previously but had diarrhea with this. He was then prescribed Glimepiride, but he does not take this because he did not feel that this improved his glucose at all. He currently is not taking any medications for diabetes at this time. -A1c is 11%. -Continue Lantus (switched to 15 units SQ every afternoon and 10 units subcu every morning), Lispro 10 units TID with meals and SSI coverage. Adjust further if needed. -Will need to be discharged on insulin therapy. Will need diabetic/insulin teaching prior to discharge. Will also need to make sure his [place] pharmacy will cover the insulin appropriately. Qualifiers: Diabetes mellitus type: type 2 Glycemic state: with hyperglycemia Qualified Code(s): E11.65 - Type 2 diabetes mellitus with hyperglycemia (6) Alcohol use disorder Impression: He drinks heavily at home and usually has a fifth of whiskey per day. -Received IV thiamine in the ED. Continue multivitamin with and PO thiamine. -Had been on Librium 25 mg TID since admission, but held this starting 02/06/24 due to lethargic status in the setting of sepsis and SERENA. Part of his lethargy w as likely Gabapentin retention due to SERENA as well. -Monitor for other signs of withdrawal and order CIWA if they develop. (7) Renal mass Impression: Renal ultrasound shows a 2.3 cm exophytic cyst in the left superior pole of the kidney. -Encourage outpatient follow up with renal mass protocol CT vs MRI. Avoiding those at this time due to SERENA and other acute illnesses. (8) Hypertension Impression: He is not taking any medications for this currently. -Started lisinopril 10 mg daily 02/02, but held 02/03 due to OR. Discontinued due to SERENA but only received one dose on 02/02. -Can have as needed hydralazine if the blood pressure increases significantly. Coreg added for better blood pressure control (9) Peripheral neuropathy Impression: He has diabetic peripheral neuropathy in both of his lower extremities. -Holding home Gabapentin 300 mg QID due to lethargy and SERENA. (10) BPH (benign prostatic hyperplasia) Impression: He does not take any medication for this at this time. -Monitor for signs/symptoms of urinary retention. -Renal ultrasound shows no hydronephrosis or retention. (11) Tobacco use disorder Impression: Counseled on smoking cessation. -Continue Nicotine patch. DVTProphylaxis: Subcu heparin
[2024-02-13 05:49] LABS: CALCIUM 8.6 mg/dL (8.5-10.3); CREATININE 1.7 mg/dL (0.6-1.3); POTASSIUM 3.5 mmol/L (3.5-4.5)
[2024-02-13] MEDS: carvediloL 3.125 MG TABLET PO SCH (08:31)
--- NOTE | 2024-02-13 10:05 | PROVIDER PROGRESS NOTE ---
Subjective - Prog Note Date Prog Note Date: 02/13/24 Prog Note Time: 10:03 - Subjective Subjective: Patient is supine in bed currently denies any pain. Current Medications - Current Medications Current Medications: Active Medications Acetaminophen (Acetaminophen 650 Mg Supp) 650 mg [place] Q6HR PRN PRN Reason: Pain or Fever > 38C (100.4F) Last Admin: 02/06/24 13:27 Dose: 650 mg Acetaminophen (Acetaminophen 500 Mg Tablet) 500 mg PO Q4HR PRN PRN Reason: Pain or Fever > 38C (100.4F) Last Admin: 02/13/24 03:49 Dose: 500 mg Ascorbic Acid (Ascorbic Acid 500 Mg Tablet) 500 mg PO DAILY [facility] Last Admin: 02/13/24 08:26 Dose: 500 mg Carvedilol (Carvedilol 3.125 Mg Tablet) 6.25 mg PO BID [facility] Last Admin: 02/13/24 08:31 Dose: 6.25 mg Docusate Sodium (Docusate Sodium 100 Mg Capsule) 100 mg PO BID PRN PRN Reason: Constipation Doxycycline Hyclate (Doxycycline 100 Mg Tablet) 100 mg PO BID [facility] Last Admin: 02/13/24 08:26 Dose: 100 mg Ferrous Sulfate (Ferrous Sulfate 325 Mg Tablet) 325 mg PO DAILYWM [facility] Last Admin: 02/13/24 08:26 Dose: 325 mg Heparin Sodium (Porcine) (Heparin 5,000 Unit/Ml Vial) 5,000 unit SUBQ BID [facility] Last Admin: 02/13/24 08:26 Dose: 5,000 unit Sodium Chloride (Normal Saline 0.9%) 1,000 mls @ 125 mls/hr IV .Q8H [facility] Last Admin: 02/13/24 08:40 Dose: 125 mls/hr Insulin Glargine-yfgn (Insulin Glargine-Yfgn 300 Unit/3 Ml Pen) 15 unit SUBQ QPM [facility] Last Admin: 02/12/24 20:51 Dose: 15 unit Insulin Human Lispro (Insulin Lispro 300 Unit/3 Ml Pen) 1 - 9 unit SUBQ 0800,1200,1700,2100 [facility]; Protocol Last Admin: 02/13/24 08:32 Dose: Not Given Insulin Human Lispro (Insulin Lispro 300 Unit/3 Ml Pen) 10 unit SUBQ TIDWM [facility]; Protocol Last Admin: 02/13/24 08:32 Dose: 10 unit Melatonin (Melatonin 3 Mg Tablet) 6 mg PO QPM PRN PRN Reason: Insomnia Multi-Ingredient Ointment (Zinc Oxide 20% Oint 30 Gm Tube) 1 applic TOP PRN PRN PRN Reason: Skin Care Last Admin: 02/12/24 00:16 Dose: 1 applic Ondansetron HCl (Ondansetron Odt 4 Mg Tablet) 4 mg TL Q6HR PRN PRN Reason: Nausea / Vomiting Ondansetron HCl (Ondansetron 4 Mg/2 Ml Vial) 4 mg IVP Q6HR PRN PRN Reason: Nausea / Vomiting Oxycodone HCl (Oxycodone 5 Mg Tablet) 5 mg PO Q8H PRN PRN Reason: Moderate Pain (Level 4-6) Last Admin: 02/13/24 08:26 Dose: 5 mg Polyethylene Glycol (Polyethylene Glycol 3350 17 Gm Packet) 17 gm PO DAILY [facility] Last Admin: 02/13/24 08:27 Dose: Not Given Multivit/Folic Acid/Iron ( Vitamin Tablet) 1 tab PO DAILYWM [facility] Last Admin: 02/13/24 08:26 Dose: 1 tab Senna (Senna 8.6 Mg Tablet) 8.6 mg PO DAILY [facility] Last Admin: 02/13/24 08:27 Dose: Not Given Sodium Chloride (Sodium Chloride Flush 0.9% 10 Ml Syringe) 10 ml IVP PRN PRN PRN Reason: NEEDED PER PROVIDER ORDERS Last Admin: 02/07/24 06:49 Dose: 10 ml Sodium Chloride (Sodium Chloride Flush 0.9% 10 Ml Syringe) 10 ml IVP 0100,0900,1700 [facility] Last Admin: 02/13/24 08:27 Dose: 10 ml Thiamine HCl (Thiamine 100 Mg Tablet) 100 mg PO DAILY [facility] Last Admin: 02/13/24 08:26 Dose: 100 mg Diclofenac Submicronized [Diclofenac] 75 mg PO DAILY 02/02/24 Gabapentin [Gabapentin ER] 300 mg PO QID 02/02/24 Objective - Vital Signs/Intake & Output Reviewed Vital Signs: Yes Vital Signs: Vital Signs x48h Temp Pulse Resp BP Pulse Ox 02/13/24 08:00 36.8 C 94 20 171/105 H 94 Intake & Output: Intake & Output 02/10/24 02/11/24 02/12/2402/12/24 23:59 23:59 23:59 23:59 Intake Total 3601.667 3673.333 3655.417 Output Total 2250 7910 500 Balance 9685.402 3952.333 3155.417 - Objective General Appearance: positive: No acute distress Eyes Bilateral: positive: PERRL Neck: positive: Trachea midline Respiratory: positive: No respiratory distress Cardiovascular: positive: Regular rate & rhythm, No murmur Abdomen: positive: Non-tender, Nml bowel sounds, No distention. negative: Guarding, Rebound Skin: positive: Warm Extremities: positive: Pedal edema Neurologic/Psychiatric: positive: Oriented x3 - Lab Results Fish Bones: 02/12/24 05:18 02/13/24 05:28 Other Labs: Lab Results x24hrs 02/13/24 02/13/24 02/12/24 Range/Units 07:58 05:28 20:35 Sodium 140 (135-145) mmol/L Potassium 3.5 (3.5-4.5) mmol/L Chloride 110 (101-111) mmol/L Carbon Dioxide 24 (21-32) mmol/L Anion Gap 6.0 (6-13) BUN 23 H (6-20) mg/dL Creatinine 1.7 H (0.6-1.3) mg/dL Estimated GFR (MDRD) 41 L (>89) Glucose 138 H (74-104) mg/dL POC Whole Bld Glucose 131 H 152 H (70 - 100) mg/dL Calcium 8.6 (8.5-10.3) mg/dL 02/12/24 Range/Units 16:38 Sodium (135-145) mmol/L Potassium (3.5-4.5) mmol/L Chloride (101-111) mmol/L Carbon Dioxide (21-32) mmol/L Anion Gap (6-13) BUN (6-20) mg/dL Creatinine (0.6-1.3) mg/dL Estimated GFR (MDRD) (>89) Glucose (74-104) mg/dL POC Whole Bld Glucose 110 H (70 - 100) mg/dL Calcium (8.5-10.3) mg/dL ABX Reporting Has patient been on IV antibiotics over the past 48 hours?: No Sepsis Event Note (H) - Evaluation Current Stage of Sepsis: Resolved Possible source of Sepsis: positive: Skin/soft tissue Assessment/Plan - Problem List (1) Diabetic infection of right foot Impression: He reports having a right foot wound ever since a bunion developed on the right lateral aspect of his foot approximately four months ago. It has been progressively worsening since then and in the past month it has become more of an open ulcer. Over the past week it has been erythematous and more painful, and he was prescribed Keflex on 02/27. The infection seemed to progress despite this and he was prescribed Bactrim 2 days ago and his symptoms continued to worsen. -MRI of the right foot is negative for osteomyelitis, but did show a fluid collection. -Blood cultures with Staph epidermidis (Methicillin-resistant/beta-lactamase positive). Outpatient wound culture growing MSSA. Operative wound culture growing Staph epidermidis. Operative anaerobic and fungal cultures pending. -Continue IV vancomycin. Originally on Zosyn, but changed to Ciprofloxacin on 02/06/24 given continued fevers as this will cover gram negatives as well as better cover staph epidermidis. -Orthopedic Surgery (Dr. John Saxena) consulted, appreciate assistance. Underwent I&D on 02/04/24. Will re-evaluate 02/07 to ensure he does not require repeat I&D. -Arterial duplex of right leg ;indicates occluded SFA with reconstitution distally via collaterals. Per discussion with orthopedic today no further surgery at this moment per Ortho will reevaluate in a couple days. On p.o. doxycycline and Flagyl, Anaerobic culture negative, will DC Flagyl, continue with p.o. doxycycline, continue PT OT, will have surgery reevaluate on Wednesday.Will decrease pain meds by half as discussed with patient, remove Ordonez catheter, Will obtain a.m. CBC and inflammatory markers CRP downtrending, no leukocytosis, afebrile will continue p.o. doxycycline (2) Bacteremia due to Staphylococcus epidermidis Impression: His blood culture from admission is growing gram-positive cocci in clusters with a PCR panel that is showing Staphylococcus epidermidis that carries the methicillin-resistant gene. -Continue contact precautions. -On IV vancomycin since admission. Switched Zosyn to Cipro 02/06/24 due to ongoing sepsis/fevers as Cipro can cover bacteremia better. -Repeat blood cultures 02/05/24 NGTD thus far. -Appears to be a true pathogenic staph epidermidis bacteremia as his operative foot cultures are growing the same bacteria. Negative blood culture on 02/05/2024 will continue Doxy for 14 days from this date follow-up CBC and inflammatory markers repeat blood culture negative. (3) Sepsis Impression: He met criteria for sepsis due to elevated white blood cell count along with tachycardia in the setting of a right diabetic foot infection. -Lactic acid is normal on presentation. On 02/06/24 he developed significant fevers, tachycardia and mild hypotension. Repeat lactic acid was negative, though he would meet criteria for severe sepsis on 02/06/24 due to confusion and SERENA. -off IV Vanco and on p.o. antibiotics monitor CBC anti-inflammatory markers -Received several liters of IV fluids yesterday. Will place on continuous ns IV fluids Qualifiers: Sepsis acute organ dysfunction status: without acute organ dysfunction (4) SERENA (acute kidney injury) Impression: His creatinine was normal on presentation but has been slowly increasing every day. Today it jumped from 1.0 to 1.7. This could be a combination of PAPA induced SEREAN with contribution from vancomycin induced SERENA versus prerenal causes from sepsis/infection. -Discontinued lisinopril (last/first dose was 02/02). Pharmacy to monitor vancomycin trough levels and adjust vancomycin dosing as indicated. -Received 1 liter NS bolus plus 1 liter IV fluids over 8 hours on 02/04. Received another 2 liters on 02/05. -Renal ultrasound showed no hydronephrosis. FENA is 0.25% indicating pre-renal causes, likely from sepsis. CK normal. . Fena calculated at 0.25% consistent with prerenal,Continue with NS hydration monitor sodium Mild improvement in creatinine continue with IV hydration awaiting baseline creatinine level Creatinine downtrending to 1.7 continue IV hydration (5) Uncontrolled diabetes mellitus Impression: He has been prescribed metformin previously but had diarrhea with this. He was then prescribed Glimepiride, but he does not take this because he did not feel that this improved his glucose at all. He currently is not taking any medications for diabetes at this time. -A1c is 11%. -Continue Lantus (switched to 15 units SQ every afternoon and 10 units subcu every morning), Lispro 10 units TID with meals and SSI coverage. Adjust further if needed. -Will need to be discharged on insulin therapy. Will need diabetic/insulin teaching prior to discharge. Will also need to make sure his [place] pharmacy will cover the insulin appropriately. Will DC a.m. Lantus, increase Lantus every afternoon continue mealtime insulin with sliding scale insulin preparing patient for discharge in a.m. Qualifiers: Diabetes mellitus type: type 2 Glycemic state: with hyperglycemia Qualified Code(s): E11.65 - Type 2 diabetes mellitus with hyperglycemia (6) Alcohol use disorder Impression: He drinks heavily at home and usually has a fifth of whiskey per day. -Received IV thiamine in the ED. Continue multivitamin with and PO thiamine. -Had been on Librium 25 mg TID since admission, but held this starting 02/06/24 due to lethargic status in the setting of sepsis and SERENA. Part of his lethargy was likely Gabapentin retention due to SERENA as well. -Monitor for other signs of withdrawal and order CIWA if they develop. (7) Renal mass Impression: Renal ultrasound shows a 2.3 cm exophytic cyst in the left superior pole of the kidney. -Encourage outpatient follow up with renal mass protocol CT vs MRI. Avoiding those at this time due to SERENA and other acute illnesses. (8) Hypertension Impression: He is not taking any medications for this currently. -Started lisinopril 10 mg daily 02/02, but held 02/03 due to OR. Discontinued due to SERENA but only received one dose on 02/02. -Can have as needed hydralazine if the blood pressure increases significantly. Coreg added for better blood pressure control (9) Peripheral neuropathy Impression: He has diabetic peripheral neuropathy in both of his lower extremities. -Holding home Gabapentin 300 mg QID due to lethargy and SERENA. (10) BPH (benign prostatic hyperplasia) Impression: He does not take any medication for this at this time. -Monitor for signs/symptoms of urinary retention. -Renal ultrasound shows no hydronephrosis or retention. (11) Tobacco use disorder Impression: Counseled on smoking cessation. -Continue Nicotine patch. DVTProphylaxis: Subcu heparin
[2024-02-13] MEDS: CALAMINE/ZINC OXIDE 177 ML BOTTLE TOP PRN (13:27)
[2024-02-13] MEDS: INSULIN GLARGINE-YFGN 300 UNIT/3 ML PEN SUBQ SCH (20:58)
[2024-02-14 05:18] LABS: CREATININE 1.6 mg/dL (0.6-1.3); POTASSIUM 3.3 mmol/L (3.5-4.5)
[2024-02-14] MEDS: hydrALAZINE 25 MG TABLET PO SCH (08:23)
[2024-02-14] MEDS: POTASSIUM CHLORIDE 20 MEQ TABLET PO ONE (08:23)
--- NOTE | 2024-02-14 09:16 | PROVIDER PROGRESS NOTE ---
Subjective - Prog Note Date Prog Note Date: 02/14/24 (n) Prog Note Time: 09:11 - Subjective Subjective: Patient sitting up at the edge of the bed wants to go home denies any acute pain. Creatinine responding to IV hydration, low potassium, high blood pressure with new addition of BP meds. Current Medications - Current Medications Current Medications: Active Medications Acetaminophen (Acetaminophen 650 Mg Supp) 650 mg [place] Q6HR PRN PRN Reason: Pain or Fever > 38C (100.4F) Last Admin: 02/06/24 13:27 Dose: 650 mg Acetaminophen (Acetaminophen 500 Mg Tablet) 500 mg PO Q4HR PRN PRN Reason: Pain or Fever > 38C (100.4F) Last Admin: 02/13/24 12:08 Dose: 500 mg Ascorbic Acid (Ascorbic Acid 500 Mg Tablet) 500 mg PO DAILY [facility] Last Admin: 02/14/24 08:23 Dose: 500 mg Calamine (Calamine/Zinc Oxide 177 Ml Bottle) 1 applic TOP PRN PRN PRN Reason: SKIN CARE Last Admin: 02/13/24 13:27 Dose: 1 applic Carvedilol (Carvedilol 3.125 Mg Tablet) 6.25 mg PO BID [facility] Last Admin: 02/14/24 07:57 Dose: 6.25 mg Docusate Sodium (Docusate Sodium 100 Mg Capsule) 100 mg PO BID PRN PRN Reason: Constipation Doxycycline Hyclate (Doxycycline 100 Mg Tablet) 100 mg PO BID [facility] Last Admin: 02/14/24 08:23 Dose: 100 mg Ferrous Sulfate (Ferrous Sulfate 325 Mg Tablet) 325 mg PO DAILYWM [facility] Last Admin: 02/14/24 07:58 Dose: 325 mg Heparin Sodium (Porcine) (Heparin 5,000 Unit/Ml Vial) 5,000 unit SUBQ BID [facility] Last Admin: 02/14/24 08:02 Dose: 5,000 unit Hydralazine HCl (Hydralazine 25 Mg Tablet) 25 mg PO TID [facility] Last Admin: 02/14/24 08:23 Dose: 25 mg Sodium Chloride (Normal Saline 0.9%) 1,000 mls @ 125 mls/hr IV .Q8H [facility] Last Admin: 02/14/24 08:34 Dose: 125 mls/hr Insulin Glargine-yfgn (Insulin Glargine-Yfgn 300 Unit/3 Ml Pen) 20 unit SUBQ QPM [facility] Last Admin: 02/13/24 20:58 Dose: 20 unit Insulin Human Lispro (Insulin Lispro 300 Unit/3 Ml Pen) 1 - 9 unit SUBQ 0800,1200,1700,2100 [facility]; Protocol Last Admin: 02/14/24 07:59 Dose: Not Given Insulin Human Lispro (Insulin Lispro 300 Unit/3 Ml Pen) 10 unit SUBQ TIDWM [facility]; Protocol Last Admin: 02/14/24 08:01 Dose: 5 unit Melatonin (Melatonin 3 Mg Tablet) 6 mg PO QPM PRN PRN Reason: Insomnia Multi-Ingredient Ointment (Zinc Oxide 20% Oint 30 Gm Tube) 1 applic TOP PRN PRN PRN Reason: Skin Care Last Admin: 02/12/24 00:16 Dose: 1 applic Ondansetron HCl (Ondansetron Odt 4 Mg Tablet) 4 mg TL Q6HR PRN PRN Reason: Nausea / Vomiting Ondansetron HCl (Ondansetron 4 Mg/2 Ml Vial) 4 mg IVP Q6HR PRN PRN Reason: Nausea / Vomiting Oxycodone HCl (Oxycodone 5 Mg Tablet) 5 mg PO Q8H PRN PRN Reason: Moderate Pain (Level 4-6) Last Admin: 02/14/24 07:56 Dose: 5 mg Polyethylene Glycol (Polyethylene Glycol 3350 17 Gm Packet) 17 gm PO DAILY [facility] Last Admin: 02/14/24 08:23 Dose: 17 gm Multivit/Folic Acid/Iron ( Vitamin Tablet) 1 tab PO DAILYWM [facility] Last Admin: 02/14/24 07:58 Dose: 1 tab Senna (Senna 8.6 Mg Tablet) 8.6 mg PO DAILY [facility] Last Admin: 02/14/24 08:23 Dose: 8.6 mg Sodium Chloride (Sodium Chloride Flush 0.9% 10 Ml Syringe) 10 ml IVP PRN PRN PRN Reason: NEEDED PER PROVIDER ORDERS Last Admin: 02/07/24 06:49 Dose: 10 ml Sodium Chloride (Sodium Chloride Flush 0.9% 10 Ml Syringe) 10 ml IVP 0100,0900,1700 [facility] Last Admin: 02/14/24 07:57 Dose: 10 ml Thiamine HCl (Thiamine 100 Mg Tablet) 100 mg PO DAILY [facility] Last Admin: 02/14/24 08:23 Dose: 100 mg Diclofenac Submicronized [Diclofenac] 75 mg PO DAILY 02/02/24 Gabapentin [Gabapentin ER] 300 mg PO QID 02/02/24 Objective - Vital Signs/Intake & Output Reviewed Vital Signs: Yes Vital Signs: Vital Signs x48h Temp Pulse Resp BP Pulse Ox 02/14/24 08:00 36.6 C 100 20 183/112 H 94 Intake & Output: Intake & Output 02/11/24 02/12/24 02/13/24 02/14/24 23:59 23:59 23:59 23:59 Intake Total 3673.333 3655.417 4378.333 2009 Output Total 2250 500 1 Balance 5646.444 9034.417 4378.333 2009 - Objective General Appearance: positive: No acute distress Eyes Bilateral: positive: PERRL ENT: positive: Pharynx nml Neck: positive: Trachea midline Respiratory: positive: No respiratory distress, Breath sounds nml Cardiovascular: positive: Regular rate & rhythm, No murmur Abdomen: positive: Non-tender, Nml bowel sounds, No distention. negative: Guarding, Rebound Skin: positive: Other (Right foot wound with dressing noted) Extremities: positive: No pedal edema Neurologic/Psychiatric: positive: Oriented x3 - Lab Results Fish Bones: 02/12/24 05:18 02/14/24 04:49 Other Labs: Lab Results x24hrs 02/14/24 02/14/24 02/13/24 Range/Units 07:50 04:49 20:33 Sodium 141 (135-145) mmol/L Potassium 3.3 L (3.5-4.5) mmol/L Chloride 108 (101-111) mmol/L Carbon Dioxide 26 (21-32) mmol/L Anion Gap 7.0 (6-13) BUN 19 (6-20) mg/dL Creatinine 1.6 H (0.6-1.3) mg/dL Estimated GFR (MDRD) 44 L (>89) Glucose 76 (74-104) mg/dL POC Whole Bld Glucose 109 H 109 H (70 - 100) mg/dL Calcium 9.0 (8.5-10.3) mg/dL 02/13/24 02/13/24 Range/Units 16:39 11:28 Sodium (135-145) mmol/L Potassium (3.5-4.5) mmol/L Chloride (101-111) mmol/L Carbon Dioxide (21-32) mmol/L Anion Gap (6-13) BUN (6-20) mg/dL Creatinine (0.6-1.3) mg/dL Estimated GFR (MDRD) (>89) Glucose (74-104) mg/dL POC Whole Bld Glucose 117 H 98 (70 - 100) mg/dL Calcium (8.5-10.3) mg/dL ABX Reporting Has patient been on IV antibiotics over the past 48 hours?: No Sepsis Event Note (H) - Evaluation Current Stage of Sepsis: Resolved Possible source of Sepsis: positive: Skin/soft tissue Assessment/Plan - Problem List (1) Diabetic infection of right foot Impression: He reports having a right foot wound ever since a bunion developed on the right lateral aspect of his foot approximately four months ago. It has been progressively worsening since then and in the past month it has become more of an open ulcer. Over the past week it has been erythematous and more painful, and he was prescribed Keflex on 02/27. The infection seemed to progress despite this and he was prescribed Bactrim 2 days ago and his symptoms continued to worsen. -MRI of the right foot is negative for osteomyelitis, but did show a fluid collection. -Blood cultures with Staph epidermidis (Methicillin-resistant/beta-lactamase positive). Outpatient wound culture growing MSSA. Operative wound culture growing Staph epidermidis. Operative anaerobic and fungal cultures pending. -Continue IV vancomycin. Originally on Zosyn, but changed to Ciprofloxacin on 02/06/24 given continued fevers as this will cover gram negatives as well as better cover staph epidermidis. -Orthopedic Surgery (Dr. John Saxena) consulted, appreciate assistance. Underwent I&D on 02/04/24. Will re-evaluate 02/07 to ensure he does not require repeat I&D. -Arterial duplex of right leg ;indicates occluded SFA with reconstitution distally via collaterals. Per discussion with orthopedic today no further surgery at this moment per Ortho will reevaluate in a couple days. On p.o. doxycycline and Flagyl, Anaerobic culture negative, will DC Flagyl, continue with p.o. doxycycline, continue PT OT, will have surgery reevaluate on Wednesday.Will decrease pain meds by half as discussed with patient, remove Ordonez catheter, Will obtain a.m. CBC and inflammatory markers CRP downtrending, no leukocytosis, afebrile will continue p.o. doxycycline (2) Bacteremia due to Staphylococcus epidermidis Impression: His blood culture from admission is growing gram-positive cocci in clusters with a PCR panel that is showing Staphylococcus epidermidis that carries the methicillin-resistant gene. -Continue contact precautions. -On IV vancomycin since admission. Switched Zosyn to Cipro 02/06/24 due to ongoing sepsis/fevers as Cipro can cover bacteremia better. -Repeat blood cultures 02/05/24 NGTD thus far. -Appears to be a true pathogenic staph epidermidis bacteremia as his operative foot cultures are growing the same bacteria. Negative blood culture on 02/05/2024 will continue Doxy for 14 days from this date follow-up CBC and inflammatory markers repeat blood culture negative. (3) Sepsis Impression: He met criteria for sepsis due to elevated white blood cell count along with tachycardia in the setting of a right diabetic foot infection. -Lactic acid is normal on presentation. On 02/06/24 he developed significant fevers, tachycardia and mild hypotension. Repeat lactic acid was negative, though he would meet criteria for severe sepsis on 02/06/24 due to confusion and SERENA. -off IV Vanco and on p.o. antibiotics monitor CBC anti-inflammatory markers -Received several liters of IV fluids yesterday. Will place on continuous ns IV fluids Qualifiers: Sepsis acute organ dysfunction status: without acute organ dysfunction (4) SEERNA (acute kidney injury) Impression: His creatinine was normal on presentation but has been slowly increasing every day. Today it jumped from 1.0 to 1.7. This could be a combination of PAPA induced SERENA with contribution from vancomycin induced SERENA versus prerenal causes from sepsis/infection. -Discontinued lisinopril (last/first dose was 02/02). Pharmacy to monitor vancomycin trough levels and adjust vancomycin dosing as indicated. -Received 1 liter NS bolus plus 1 liter IV fluids over 8 hours on 02/04. Received another 2 liters on 02/05. -Renal ultrasound showed no hydronephrosis. FENA is 0.25% indicating pre-renal causes, likely from sepsis. CK normal. . Fena calculated at 0.25% consistent with prerenal,Continue with NS hydration monitor sodium Mild improvement in creatinine continue with IV hydration awaiting baseline creatinine level Creatinine downtrending to 1.6 continue IV hydration Patient creatinine improving with current IV hydration possibly recovering from his ATN, concern regarding alcohol use and diuresis with alcohol as an o utpatient remains status been discussed with patient, patient expressed understanding of staying hydrated and avoiding alcohol while kidney recovering. (5) Uncontrolled diabetes mellitus Impression: He has been prescribed metformin previously but had diarrhea with this. He was then prescribed Glimepiride, but he does not take this because he did not feel that this improved his glucose at all. He currently is not taking any medications for diabetes at this time. -A1c is 11%. -Continue Lantus (switched to 15 units SQ every afternoon and 10 units subcu tracey ry morning), Lispro 10 units TID with meals and SSI coverage. Adjust further if needed. -Will need to be discharged on insulin therapy. Will need diabetic/insulin teaching prior to discharge. Will also need to make sure his [place] pharmacy will cover the insulin appropriately. ContinueLantus every afternoon continue mealtime insulin with sliding scale insulin preparing patient for discharge Qualifiers: Diabetes mellitus type: type 2 Glycemic state: with hyperglycemia Qualified Code(s): E11.65 - Type 2 diabetes mellitus with hyperglycemia (6) Alcohol use disorder Impression: He drinks heavily at home and usually has a fifth of whiskey per day. -Received IV thiamine in the ED. Continue multivitamin with and PO thiamine. -Had been on Librium 25 mg TID since admission, but held this starting 02/06/24 due to lethargic status in the setting of sepsis and SERENA. Part of his lethargy was likely Gabapentin retention due to SERENA as well. -Monitor for other signs of withdrawal and order CIWA if they develop. (7) Renal mass Impression: Renal ultrasound shows a 2.3 cm exophytic cyst in the left superior pole of the kidney. -Encourage outpatient follow up with renal mass protocol CT vs MRI. Avoiding those at this time due to SERENA and other acute illnesses. (8) Hypertension Impression: He is not taking any medications for this currently. -Started lisinopril 10 mg daily 02/02, but held 02/03 due to OR. Discontinued due to SERENA but only received one dose on 02/02. -Can have as needed hydralazine if the blood pressure increases significantly. Coreg added for better blood pressure control (9) Peripheral neuropathy Impression: He has diabetic peripheral neuropathy in both of his lower extremities. -Holding home Gabapentin 300 mg QID due to lethargy and SERENA. (10) BPH (benign prostatic hyperplasia) Impression: He does not take any medication for this at this time. -Monitor for signs/symptoms of urinary retention. -Renal ultrasound shows no hydronephrosis or retention. (11) Tobacco use disorder Impression: Counseled on smoking cessation. -Continue Nicotine patch. DVTProphylaxis: Subcu heparin
[2024-02-14] MEDS: INSULIN LISPRO 300 UNIT/3 ML PEN SUBQ SCH (12:02)
[2024-02-14] MEDS: GABAPENTIN 300 MG CAPSULE PO SCH (12:03)
[2024-02-15 06:07] LABS: BASOPHILS # (AUTO) 0.2 10^3/uL (0.0-0.1); BASOPHILS % (AUTO) 1.5 %; EOSINOPHILS # (AUTO) 0.5 10^3/uL (0.0-0.7); EOSINOPHILS % (AUTO) 5.1 %; HGB - HEMOGLOBIN 11.1 g/dL (14.0-18.0); LYMPHOCYTES # (AUTO) 2.7 10^3/uL (1.5-3.5); LYMPHOCYTES % (AUTO) 25.5 %; MEAN CORPUSCULAR HEMOGLOBIN 31.3 pg (27.0-31.0); MEAN CORPUSCULAR HGB CONC 31.7 g/dL (32.0-36.0); MEAN CORPUSCULAR VOLUME 98.6 fL (80.0-94.0); MONOCYTES # (AUTO) 0.9 10^3/uL (0.0-1.0); MONOCYTES % (AUTO) 8.2 %; NEUTROPHILS # (AUTO) 6.2 10^3/uL (1.5-6.6); NEUTROPHILS % (AUTO) 58.8 %; PLT - PLATELET COUNT 378 10^3/uL (130-450); RED BLOOD COUNT 3.55 10^6/uL (4.70-6.10); RED CELL DISTRIBUTION WIDTH 12.5 % (12.0-15.0); WHITE BLOOD COUNT 10.5 x10^3/uL (4.8-10.8)
[2024-02-15 06:17] LABS: CALCIUM 8.8 mg/dL (8.5-10.3); CREATININE 1.6 mg/dL (0.6-1.3); CRP - C-REACTIVE PROTEIN 5.4 mg/dL (<0.5); POTASSIUM 3.8 mmol/L (3.5-4.5)
[2024-02-15 08:09] VITALS: BP 160/95; O2SAT 93
--- NOTE | 2024-02-15 09:12 | Discharge Plan ---
Discharge Plan Problem Reviewed?: Yes Disposition: Home Health Service Condition: Good Prescriptions: Acetaminophen [Tylenol] 500 mg PO Q4HR PRN 30 Days #60 tab PRN Reason: Pain Or Fever > 38c (100.4f) hydrALAZINE [Apresoline] 50 mg PO TID 30 Days #90 tab Calamine/Zinc Oxide [Calamine Lotion] 1 applic TOP PRN PRN 30 Days #1 each PRN Reason: SKIN CARE Docusate Sodium 100Mg Capsule [Colace 100Mg Capsule] 100 mg PO BID PRN 30 Days #60 cap PRN Reason: Constipation carvediloL [Coreg] 6.25 mg PO BID 30 Days #60 tab Ferrous Sulfate [Feosol] 325 mg PO DAILYWM 30 Days #30 tab Insulin Lispro [Humalog Kwikpen U-100] 5 unit SUBQ TIDWM 30 Days #30 ml Insulin Lispro [Humalog Kwikpen U-100] 1 - 9 unit SUBQ 0800,1200,1700,2100 30 Days #30 ml Gabapentin [Neurontin] 300 mg PO DAILY 30 Days #30 cap oxyCODONE [Roxicodone] 5 mg PO Q8H PRN 10 Days #30 tab PRN Reason: Moderate Pain (Level 4-6) Insulin Glargine-Yfgn [Semglee] 20 unit SUBQ QPM 30 Days #30 ml Doxycycline [Vibramycin] 100 mg PO BID 10 Days #20 tab Thiamine [Vitamin B-1] 100 mg PO DAILY 30 Days #30 tab Ascorbic Acid [Vitamin C] 500 mg PO DAILY 30 Days #30 tab Zinc Oxide 20% Oint [Zinc Oxide] 1 applic TOP PRN PRN 30 Days #30 each PRN Reason: Skin Care Diet: Diabetic Activity Restrictions: Nonweightbearing right lo Assistance Devices: Wheelchair, Walker Weight Bearing: No Weight Health Concerns: Nonweightbearing right lower extremity, strict elevation of right foot higher than your heart Leave dressing in place if it falls off redress with clean Xeroform, 4 x 4's Webril and Marshal wrap Plan of Treatment: Continue doxycycline for next 10 days [facility] orth[facility] follow-up with the wound MD/clinic Nonweightbearing right lower extremity, elevate right foot higher than your heart Home health PT/wound care Continue with your new insulin doses record your blood sugars on your log book to show to your primary care physician Blood pressure medication have changed please continue with current meds follow- up with PCP Stay hydrated/avoid alcohol while your kidneys are recovering Follow-up with PCP for monitoring kidney function as an outpatient Follow-up with your PCP to further obtain renal mass protocol CT versus MRI to further evaluate renal mass as an outpatient when your creatinine resolves. Care Goals: Wound care, antibiotic, blood sugar control, stay hydrated, no tobacco, avoid alcohol, follow-up PCP as an outpatient for renal mass protocol CT versus MRI, wound care as an outpatient, Assessment: His creatinine was normal on presentation but has been slowly increasing every day. Today it jumped from 1.0 to 1.7. This could be a combination of MARSHAL induced SERENA with contribution from vancomycin induced SERENA versus prerenal causes from sepsis/infection. -Discontinued lisinopril (last/first dose was 02/02). Pharmacy to monitor vancomycin trough levels and adjust vancomycin dosing as indicated. -Received 1 liter NS bolus plus 1 liter IV fluids over 8 hours on 02/04. Received another 2 liters on 02/05. -Renal ultrasound showed no hydronephrosis. FENA is 0.25% indicating pre-renal causes, likely from sepsis. CK normal. . Fena calculated at 0.25% consistent with prerenal,Continue with NS hydration monitor sodium Mild improvement in creatinine continue with IV hydration awaiting baseline creatinine level Creatinine downtrending to 1.6 continue IV hydration Patient creatinine improving with current IV hydration possibly recovering from his ATN, concern regarding alcohol use and diuresis with alcohol as an outpatient remains status been discussed with patient, patient expressed understanding of staying hydrated and avoiding alcohol while kidney recovering. (5) Uncontrolled diabetes mellitus Impression: He has been prescribed metformin previously but had diarrhea with this. He was then prescribed Glimepiride, but he does not take this because he did not feel that this improved his glucose at all. He currently is not taking any medications for diabetes at this time. -A1c is 11%. -Continue Lantus (switched to 15 units SQ every afternoon and 10 units subcu every morning), Lispro 10 units TID with meals and SSI coverage. Adjust further if needed. -Will need to be discharged on insulin therapy. Will need diabetic/insulin teaching prior to discharge. Will also need to make sure his [place] pharmacy will cover the insulin appropriately. ContinueLantus every afternoon continue mealtime insulin with sliding scale insulin preparing patient for discharge Qualifiers: Diabetes mellitus type: type 2 Glycemic state: with hyperglycemia Qu alified Code(s): E11.65 - Type 2 diabetes mellitus with hyperglycemia (6) Alcohol use disorder Impression: He drinks heavily at home and usually has a fifth of whiskey per day. -Received IV thiamine in the ED. Continue multivitamin with and PO thiamine. -Had been on Librium 25 mg TID since admission, but held this starting 02/06/24 due to lethargic status in the setting of sepsis and SERENA. Part of his lethargy was likely Gabapentin retention due to SERENA as well. -Monitor for other signs of withdrawal and order CIWA if they develop. (7) Renal mass Impression: Renal ultrasound shows a 2.3 cm exophytic cyst in the left superior pole of the kidney. -Encourage outpatient follow up with renal mass protocol CT vs MRI. Avoiding those at this time due to SERENA and other acute illnesses. (8) Hypertension Impression: He is not taking any medications for this currently. -Started lisinopril 10 mg daily 02/02, but held 02/03 due to OR. Discontinued due to SERENA but only received one dose on 02/02. -Can have as needed hydralazine if the blood pressure increases significantly. Coreg added for better blood pressure control (9) Peripheral neuropathy Impression: He has diabetic peripheral neuropathy in both of his lower extremities. -Holding home Gabapentin 300 mg QID due to lethargy and SERENA. (10) BPH (benign prostatic hyperplasia) Impression: He does not take any medication for this at this time. -Monitor for signs/symptoms of urinary retention. -Renal ultrasound shows no hydronephrosis or retention. (11) Tobacco use disorder Impression: Counseled on smoking cessation. -Continue Nicotine patch. DVTProphylaxis: Subcu heparin Additional Instructions or Follow Up instructions: Follow-up wound MD/follow-up orthopedic/follow-up PCP Follow-Up Care: Home Health - PT No Smoking: If you smoke, Please STOP! Call for help. Follow-up with: ERIKA FRAUSTO ARNP [Primary Care Provider] -
--- NOTE | 2024-02-15 10:22 | DISCHARGE SUMMARY ---
"Discharge Summary Admit Date: 02/02/24 Discharge Date: 02/15/24 Discharging Provider: dr andrews Primary Care Provider: marely awad Code Status: Do Not Attempt Resuscitation Condition at Discharge: Good Discharge Disposition: 06 Home Health Service - DIAGNOSES Admission Diagnoses: Diabetic right foot infection Bacteremia Sepsis Acute kidney injury Uncontrolled diabetes mellitus Alcohol use disorder Renal mass Hypertension Peripheral neuropathy BPH Tobacco use disorder Discharge Diagnoses with Status of Each Condition: Diabetic right foot infection Bacteremia Sepsis Acute kidney injury Diabetes mellitus Alcohol use disorder Renal mass Hypertension Peripheral neuropathy BPH Tobacco use disorder - HPI History of Present Illness: Sukhdev Howell is a 58-year-old gentleman with a history of type 2 diabetes, hypertension, peripheral neuropathy, BPH, chronic back pain, eczema and alcohol abuse who presents with a right foot ulcer. He developed a bunion on his right foot (right lateral aspect) and about four months ago it started to open up. Over the past several months, the wound has been getting larger and continued to drain. The ulcer has been increasingly red and swollen starting about 10 days ago, thus he went to the walk-in clinic on 02/27 and was prescribed Keflex. Despite taking the antibiotic the symptoms seem to progress and he went back to the walk-in clinic, where he was prescribed Bactrim 2 days ago. Despite taking this the redness in the area has been progressing and the swelling is increasing as well. His entire right lower foot is swollen/red. Despite having peripheral neuropathy he is having more pain in the area but he denies having any fevers, chills or night sweats. He denies any pain in his calf or swelling in his more proximal right leg. He denies any chest pain, shortness of breath, cough, nausea, vomiting or diarrhea. Yesterday he noticed a blister that started to appear on the dorsal aspect of his foot and due to progression of his symptoms he came to the emergency department for further evaluation. He was afebrile though he was tachycardic and mildly hypertensive. His WBC was 14.0 and his BMP was fairly unremarkable aside from a glucose of 360. His ESR was 37 and CRP was 29. An x-ray of his foot was negative for osteomyelitis or other pathology but given concerns for possible underlying osteomyelitis an MRI of his right foot was ordered and pending at the time of admission. He was given IV vancomycin and Unasyn as well as 12 units of IV regular insulin for his hyperglycemia then admitted for further care. Of note the patient does have alcohol abuse and drinks approximately a fifth of whiskey every day. He denies a history of alcohol withdrawal, saying he has gone over 4 days without tremors, though his indicated she did not think he has ever gone that long without alcohol previously. - CONSULTS | PROCEDURES Procedures: Right foot I&D - HOSPITAL COURSE Hospital Course: This is a 58-year-old male with past medical of diabetes mellitus hypertension peripheral neuropathy BPH alcohol use disorder tobacco use disorder who was admitted to [facility] on 02/02/2024 secondary to right foot infection where patient since has been evaluated by hospitalist as well as also by surgery team patient further had imaging that showed no osteomyelitis but fluid collection consistent with abscess where patient on 02/04/2024 had I&D of right foot cultures positive for Staph epidermidis blood culture also positive for Staph epidermidis currently patient has been switched from broad-spectrum antibiotic to doxycycline responding well WBC decreasing and inflammatory markers decreasing patient has been evaluated by surgery team further workup shows peripheral vascular disease that needs to be followed as an outpatient with currently positive collaterals further patient at this time has worked with PT OT did have further urinary retention secondary to narcotic gabapentin which has been tapered down currently making urine Ordonez is out patient did have imaging which showed a renal mass to be followed by PCP and the suggestion is mass protocol CT versus MRI as an outpatient further patient at this time has n onweightbearing on right lower extremity to follow-up with PT as an outpatient front wheel walker as well as wheelchair be provided to the patient by case management patient has been educated by me in the further multiple staff members in terms of compliance and follow-up. Patient most likely with ATN his creatinine is responding well to IV hydration at this time suggestion is stay hydrated avoid alcohol while kidneys recovering. - ALLERGIES Allergies/Adverse Reactions: Allergies Allergy/AdvReac Type Severity Reaction Status Date / Time No Known Drug Allergies Allergy Verified 02/02/24 09:38 - MEDICATIONS Home Medications: Ambulatory Orders Medication Instructions Recorded Confirmed Acetaminophen [Tylenol] 500 mg PO Q4HR PRN 30 Days #60 tab 02/15/24 Acetaminophen [Tylenol] 650 mg AL Q6HR PRN supp 02/15/24 Ascorbic Acid [Vitamin C] 500 mg PO DAILY 30 Days #30 tab 02/15/24 Calamine/Zinc Oxide [Calamine 1 applic TOP PRN PRN 30 Days #1 02/15/24 Lotion] each Docusate Sodium 100Mg Capsule 100 mg PO BID PRN 30 Days #60 cap 02/15/24 [Colace 100Mg Capsule] Doxycycline [Vibramycin] 100 mg PO BID 10 Days #20 tab 02/15/24 Ferrous Sulfate [Feosol] 325 mg PO DAILYWM 30 Days #30 tab 02/15/24 Gabapentin [Neurontin] 300 mg PO DAILY 30 Days #30 cap 02/15/24 Heparin [Heparin Sodium (Porcine)] 5,000 unit SUBQ BID ml 02/15/24 Insulin Glargine-Yfgn [Semglee] 20 unit SUBQ QPM 30 Days #30 ml 02/15/24 Insulin Lispro [Humalog Kwikpen 1 - 9 unit SUBQ 02/15/24 U-100] 0800,1200,1700,2100 30 Days #30 ml Insulin Lispro [Humalog Kwikpen 5 unit SUBQ TIDWM 30 Days #30 ml 02/15/24 U-100] Melatonin 6 mg PO QPM PRN tab 02/15/24 Ondansetron Inj [Zofran Inj] 4 mg IVP Q6HR PRN ml 02/15/24 Ondansetron Odt [Zofran Odt] 4 mg TL Q6HR PRN tab 02/15/24 Thiamine [Vitamin B-1] 100 mg PO DAILY 30 Days #30 tab 02/15/24 Zinc Oxide 20% Oint [Zinc Oxide] 1 applic TOP PRN PRN 30 Days #30 02/15/24 each carvediloL [Coreg] 6.25 mg PO BID 30 Days #60 tab 02/15/24 hydrALAZINE [Apresoline] 50 mg PO TID 30 Days #90 tab 02/15/24 oxyCODONE [Roxicodone] 5 mg PO Q8H PRN 10 Days #30 tab 02/15/24 polyethylene glycoL 3350 [Miralax] 17 gm PO DAILY packet 02/15/24 - PHYSICAL EXAM AT DISCHARGE General Appearance: positive: No acute distress Eyes Bilateral: positive: PERRL Neck: positive: Trachea midline Respiratory: positive: No respiratory distress, Breath sounds nml Cardiovascular: positive: Regular rate & rhythm, No murmur Abdomen: positive: Non-tender, Nml bowel sounds, No distention. negative: Guarding, Rebound Skin: positive: Warm Extremities: positive: No pedal edema, Other (Right foot dressing intact) - LABS Result Diagrams: 02/15/24 05:44 02/15/24 05:44 - DIAGNOSTIC IMAGING Diagnostic Imaging Results: Final report reviewed - SEPSIS Current Stage of Sepsis: Resolved Possible source of Sepsis: Skin/soft tissue - FOLLOW UP Follow Up: PCP, wound clinic - TIME SPENT Time Spent in Discharge (Minutes): 40"
== END 2024-02-15 12:35 | disposition home health service (06) | DRG 871 ==
LOC: ED 09:14 → MS3 18:09 → MS2 02-12 13:07
PROVIDERS: ADMIT Hospitalist; ATTEND Hospitalist
PROC: 0H9MXZZ Drainage of Right Foot Skin, External Approach (ICD-10-PCS; principal; 2024-02-04 13:00)
DX: A41.02 Sepsis due to Methicillin resistant Staphylococcus aureus (principal); N17.0 Acute kidney failure with tubular necrosis; L97.518 Non-pressure chronic ulcer of other part of right foot with other specified severity; E87.20 Acidosis, unspecified; E11.621 Type 2 diabetes mellitus with foot ulcer; E11.65 Type 2 diabetes mellitus with hyperglycemia; F10.10 Alcohol abuse, uncomplicated; I10 Essential (primary) hypertension; E11.42 Type 2 diabetes mellitus with diabetic polyneuropathy; F17.210 Nicotine dependence, cigarettes, uncomplicated; G89.29 Other chronic pain; L08.9 Local infection of the skin and subcutaneous tissue, unspecified; N40.1 Benign prostatic hyperplasia with lower urinary tract symptoms; R33.8 Other retention of urine; E11.610 Type 2 diabetes mellitus with diabetic neuropathic arthropathy; G47.33 Obstructive sleep apnea (adult) (pediatric); N28.1 Cyst of kidney, acquired
CPT/HCPCS: 36415; 36600; 73630; 73720; 76770; 80048; 80053; 80202; 81001; 82140; 82550; 82570; 82607; 82746; 82803; 83036; 83540; 83605; 83690; 83735; 84100; 84300; 84443; 84466; 85025; 85610; 85651; 86140; 86141; 87040; 87070; 87077; 87101; 87154; 87181; 87205; 93926; 94660; 96365; 96366; 96367; 96375; 97110; 97162; 97166; 97530; 99284; 99285; A9270; A9575; J0131; J1170; J1815; J3370; J3411; J7040; J7120; 87086